=== PATIENT | female | born 1980 | race Caucasian/White ===

== ENCOUNTER 2020-01-28 13:16 | Outpatient (CLI) | payer SELFPAY ==
--- NOTE | 2020-01-28 13:23 | USCV_ITS ---
Kiera Patricia Age: 39 Gender: F : 1980 Exam Date: 01/28/2020 13:42 Ordering Phys: Angie Velarde APN- JOHN FISHER LAMPARA NET Technologist: Wilda Conway [place]am Location[place] [facility] [place]ication: LEG PAIN HISTORY: Lower extremity pain. PROCEDURES: Venous duplex imaging was performed in only the left lower extremity. The following venous structures were evaluated: common femoral vein, profunda vein, proximal portion of the greater saphenous vein, superficial femoral vein, and the popliteal vein. In addition, the posterior tibial and peroneal trunk were evaluated. Serial compression, augmentation maneuvers, and spectral Doppler flow evaluation were performed. FINDINGS: Normal 2-D Doppler and augmentation and compressibility throughout the lower extremity venous structures. Additional imaging through the proximal calf veins also reveals no thrombus. Limited evaluation of the greater saphenous vein is patent with no thrombus. CONCLUSIONS No DVT left lower extremity. Dr. Sujata Dominguez DO (Electronically Signed) Final Date: 28 January 2020 15:39 S
== END 2020-01-28 13:17 | disposition home or self-care (01) ==
LOC: RAD 13:21
PROVIDERS: PCP Nurse Practitioner Family; Visit Provider Nurse Practitioner Family
DX: M79.605 Pain in left leg (principal)
CPT/HCPCS: 93971

== ENCOUNTER 2020-02-14 12:13 | Emergency (ER) | payer SELFPAY ==
[2020-02-14 12:49] VITALS: BP 115/80; PULSE 75; RESP 16; TEMP 36.7; O2SAT 97; BMI 42.3
[2020-02-14 14:20] VITALS: PULSE 97
[2020-02-14 14:31] VITALS: BP 126/107; PULSE 67; RESP 18; O2SAT 97
--- NOTE | 2020-02-14 14:49 | USCV_ITS ---
Patricia Qureshi Age: 39 Gender: F : 1980 Exam Date: 02/14/2020 14:37 Ordering Phys: Toma Kelley Technologist: Genaro Singh Exam Location: [facility] – [place] Indication: LEG PAIN Aortic Velocity @ SMA (cm/s) FINDINGS Normal 2-D Doppler and augmentation and compressibility throughout the lower extremity venous structures. Additional imaging through the proximal calf veins also reveals no thrombus. Limited evaluation of the greater saphenous vein is patent with no thrombus.. CONCLUSIONS No evidence of left lower extremity DVT. Naresh Hurd MD Edited by: CV Internet Marketing Manager (Electronically Signed) Final Date: 14 February 2020 18:31 Amended: 16 February 2020 13:47 C
[2020-02-14 15:04] VITALS: TEMP 36.6
[2020-02-14 15:06] LABS: Basophils # 0.1 10^3/uL (0.0-0.1); Eosinophils # 0.4 10^3/uL (0.0-0.8); Eosinophils % 4.1 %; Hematocrit 45.4 % (37.0-47.0); Hemoglobin 14.7 g/dL (11.5-15.3); Lymphocytes # 3.1 10^3/uL (0.8-4.8); Lymphocytes % 31.1 %; Mean Corpuscular HGB Conc 32.4 g/dL (30.0-36.0); Mean Corpuscular Hemoglobin 30.2 pg (28.0-34.0); Mean Corpuscular Volume 93.2 fL (81-99); Mean Platelet Volume 10.9 fL (7.4-10.4); Monocytes # 0.7 10^3/uL (0.2-0.9); Monocytes % 7.3 %; Neutrophils # 5.68 10^3/uL (1.8-7.7); Neutrophils % 56.3 %; Nucleated Red Blood Cells % 0 %; Platelet Count 314 10^3/cmm (130-400); Red Blood Count 4.87 10^6/uL (4.1-5.3); Red Cell Distribution Width 12.7 % (12.1-15.1); White Blood Count 10.1 10^3/uL (4.0-10.0)
--- NOTE | 2020-02-14 15:08 | ED_ITS ---
HPI - Extremity Problem General: Chief complaint: Extremity Problem,Nontraumatic Stated complaint: L LEG PAIN/PREVIOUS BLOOD CLOT/RED & INFLAMED Time Seen by Provider: 02/14/20 14:23 History of Present Illness: HPI Narrative: 39-year-old female patient presents to the emergency department with left lower leg problem. She reports 6-month history of left lower leg discoloration with open wounds. States recently evaluated by her primary care physician with prescription of cephalexin on 2 occasions, has failed to improve, was told to come to the emergency department for evaluation for possible DVT. She reports DVT history approximately 5 years ago. She is unable to afford her Xarelto. She has experienced only 1 previous DVT. She reports wounds to the left lower extremity have been present x6 months, they are not changed. She reports erythema has not changed. She states increased pain, shooting pain to the area has increased. Associated symptoms: Deny chest pain, fever(s) or rash Review of Systems General: Reports: 10 or more systems reviewed and unremarkable except in HPI and below Const: Reports: chills; Denies: fever(s) or diaphoresis Eyes: Denies: blurry vision or eye redness ENMT: Denies: throat pain, dental pain or disequilibrium Card: Denies: chest pain, palpitations or irregular heart rhythm Resp: Denies: dyspnea, productive cough, non-productive cough or wheezing GI: Denies: abdominal pain, nausea or vomiting : Denies: difficulty voiding or dysuria Musc: Reports: extremity pain (LLE) and extremity swelling (LLE); Denies: back pain Skin/Breast: Reports: erythema, skin tenderness, non-healing lesions and changes in skin color; Denies: rash or pruritus Neuro: Denies: headache(s), weakness in extremities or behavioral changes Conrado/Lymph: Denies: easy bruising Physical Exam Const: COMMON NORMALS: no acute distress, patient oriented x3, healthy appearing and alert GENERAL APPEARANCE: cooperative, comfortable and well hydrated HENMT: COMMON NORMALS: normocephalic, Normal external nose present and moist oral mucous membranes HEAD & SCALP: normocephalic NOSE: Normal external nose present Eye: COMMON NORMALS: Equal, round and reactive pupils present and EOMs intact bilaterally GENERAL EYE: appearance normal, both eyes and all related structures PUPIL: Yes Equal, round and reactive pupils present Neck/C-Spine: COMMON NORMALS: full ROM, no lymphadenopathy and Thyroid normal GENERAL: Yes normal visual inspection and Yes trachea midline THYROID: Thyroid normal CERVICAL SPINE: Yes cervical ROM normal Lymph: LYMPHATIC: no lymphadenopathy noted Chest: COMMONS NORMALS: normal inspection of the chest and normal palpation of entire chest wall Resp: COMMON NORMALS: normal respiratory effort and clear to auscultation bilaterally EFFORT & INSPECTION: Yes able to speak in complete sentences AUSCULTATION: clear to auscultation bilaterally Cardio: COMMON NORMALS: regular rhythm, S1 normal heart sound present, S2 no rmal heart sound present and Peripheral pulses 2+ throughout RHYTHM: regular rhythm HEART SOUNDS: S1 normal heart sound present and S2 normal heart sound present PERIPHERAL PULSES: Peripheral pulses 2+ throughout GI: COMMON NORMALS: Normal to inspection, nondistended, normoactive bowel sounds present, Soft to palpation and non-tender INSPECTION: Yes normal to inspection PALPATION: Yes Soft to palpation : COMMON NORMALS: Yes no CVA tenderness BLADDER/KIDNEY EXAM: Yes no CVA tenderness Back/Pelvis: COMMON NORMALS: no CVA tenderness and thoracic and lumbar spine normal to inspection Extremity: COMMON NORMALS: capillary refill normal GENERAL: Yes normal exam except as noted LEFT LOWER EXTREMITY: Yes lower leg (with dark erythema discoloration, scaling, located medially, distal one third surrounding to open wounds with scab formation, each wound approximately 2 cm, no drainage) Left lower leg: Yes palpation (Slight discomfort) and Yes neurovascular exam (Distally intact) EXTREMITY IMAGE (FRONT): 1. Darkened erythema with scaling, 2 annular wounds consistent with chronic stasis ulcers, no drainage, non-tender upon palpation Neuro: COMMON NORMALS: patient oriented x3 and no focal motor deficits SENSORIUM/ORIENTATION: Yes alert Psych: COMMON NORMALS: mental status grossly normal, Normal thought process present and cooperative ACTIVITY/MOTOR BEHAVIOR: Yes appropriate eye contact THOUGHT PROCESS: Normal thought process present Skin: COMMON NORMALS: no rashes or lesions noted and turgor normal GENERAL SKIN EXAM: no rashes or lesions noted and turgor normal Course ED course: 39-year-old female patient with left lower extremity discoloration with wounds that have been present for 6 months and has not changed, she was sent to the emergency department by her primary care physician with concern for DVT. Continues with cephalexin as antibiotic therapy. Doxycycline was added to her regimen today to cover MRSA. Wound cultures were obtained from the area with referral to dermatology. player services representative contacted to assist with dermatology consult. Wound appears as chronic stasis ulcer, left lower ex tremity ultrasound did not appreciate DVT or abscess. She reports not able to afford Xarelto. Remains on aspirin 325 mg daily, again, DVT not appreciated upon exam. Vital Signs: Vital signs: Vital Signs Temperature 97.8 F 02/14/20 15:04 Pulse Rate 69 02/14/20 15:54 Respiratory Rate 14 02/14/20 15:54 Blood Pressure 129/92 02/14/20 15:54 Pulse Oximetry 97 02/14/20 15:54 MDM - Extremity (Nontraumatic) Lab Data: Labs: Lab Results 02/14/20 02/14/20 Range/Units 14:35 14:35 WBC 10.1 H (4.0-10.0) 10^3/ uL RBC 4.87 (4.1-5.3) 10^6/u L Hgb 14.7 (11.5-15.3) g/dL Hct 45.4 (37.0-47.0) % MCV 93.2 (81-99) fL MCH 30.2 (28.0-34.0) pg MCHC 32.4 (30.0-36.0) g/dL RDW 12.7 (12.1-15.1) % Plt Count 314 (130-400) 10^3/c mm MPV 10.9 H (7.4-10.4) fL Neut % (Auto) 56.3 % Lymph % (Auto) 31.1 % [place] % (Auto) 7.3 % Eos % (Auto) 4.1 % Baso % (Auto) 1.0 % Neut # (Auto) 5.68 (1.8-7.7) 10^3/u L Lymph # (Auto) 3.1 (0.8-4.8) 10^3/u L [place] # (Auto) 0.7 (0.2-0.9) 10^3/u L Eos # (Auto) 0.4 (0.0-0.8) 10^3/u L Baso # (Auto) 0.1 (0.0-0.1) 10^3/u L Nucleated RBC % (a uto) 0 % Nucleated RBCs # 0.0 /100WBC Sodium 139 (136-145) mmol/L Potassium 4.2 (3.5-5.1) mmol/L Chloride 104 (98-107) mmol/L Carbon Dioxide 26 (22-29) mmol/L Anion Gap 13.2 (5-19) BUN 11 (6-20) mg/dL Creatinine 0.7 (0.5-0.9) mg/dL GFR Calculation 93.2 (90-130) mL/min Glucose 92 (65-115) mg/dL Calculated Osmolal ity 287 (285-295) mOsm/k g Calcium 8.9 (8.5-10.5) mg/dL Total Bilirubin 0.2 (0.15-1.2) mg/dL AST 20 (0-32) U/L ALT 22 (0-33) U/L Alkaline Phosphata se 79 (35-105) IU/L Total Protein 7.2 (6.6-8.7) g/dL Albumin 4.1 (3.5-5.2) g/dL Globulin 3.1 (1.3-4.6) g/dL Discharge Plan Discharge Patient Disposition: Home Clinical Impression: Cellulitis of left lower extremity, Chronic stasis dermatitis of left lower extremity Condition: Stable Prescriptions: New doxycycline hyclate 100 mg capsule 100 mg PO BID 7 Days Qty: 14 RF: 0 Continued aspirin 325 mg Tablet 325 mg PO DAILY RF: 0 ibuprofen 800 mg tablet 800 mg PO TID PRN (Reason: Pain) RF: 0 rizatriptan 10 mg tablet 10 mg PO PRN RF: 0 tramadol 50 mg tablet 50 mg PO Q4H PRN (Reason: Pain) RF: 0 cephalexin 500 mg capsule 1,000 mg PO BID RF: 0 Discharge Orders: Discharge Order (Routine); Ordered 02/14/20 Ordered By: Toma Kelley Referrals: Angie Velarde APN [Primary Care Provider] - Discharge Diet: Usual diet Discharge Activity: Resume usual activity Patient Instructions: Cellulitis (ED), Stasis Dermatitis (ED) Activity Restrictions/Additional Instructions: Wound culture is currently pending, you will be contacted with results if antibiotics are not effective with growth of bacteria Referral to dermatology was completed in the emergency department, you will be contacted with appointment time and day of follow-up with dermatology Cleanse the wound with antibacterial soap daily, cover as needed if draining, continue cephalexin, doxycycline was added to cover MRSA Return to the emergency department if you develop red streaking of the lower extremity, high fever, or worsening concerning symptoms. Discharge Date/Time: 02/14/20 15:55 Coding Level of Care Code ED Inspector Poising for Marjorie Lopez Exam Comprehensive
[2020-02-14 15:21] LABS: Alanine Aminotransferase 22 U/L (0-33); Albumin Level 4.1 g/dL (3.5-5.2); Alkaline Phosphatase 79 IU/L (35-105); Anion Gap 13.2 (5-19); Aspartate Amino Transferase 20 U/L (0-32); Blood Urea Nitrogen 11 mg/dL (6-20); Calcium 8.9 mg/dL (8.5-10.5); Carbon Dioxide 26 mmol/L (22-29); Chloride 104 mmol/L (98-107); Globulin 3.1 g/dL (1.3-4.6); Glomerular Filtration Rate 93.2 mL/min (90-130); Glucose 92 mg/dL (65-115); Osmolality Calculated 287 mOsm/kg (285-295); Potassium 4.2 mmol/L (3.5-5.1); Sodium 139 mmol/L (136-145); Total Bilirubin 0.2 mg/dL (0.15-1.2); Total Protein 7.2 g/dL (6.6-8.7)
[2020-02-14 15:54] VITALS: BP 129/92; PULSE 69; RESP 14; O2SAT 97
--- NOTE | 2020-02-15 09:33 | DCPLANNER ---
training development manager had message to schedule a follow up appointment for patient with dermatology. training development manager called the dermatology clinic, spoke with Didi, gave clinic patients information. training development manager was told that patients information would be printed and reviewed. training development manager was told that the physician is not in the clinic this week, will return the week of February 20. Clinic will call patient with appointment information.
--- NOTE | 2020-02-23 09:08 | DCPLANNER ---
senior finance manager called the office of Dr. Mcgovern, spoke with Scar, a follow up appointment is scheduled for Saturday, March 21, 2020 at 3:[address] Mcgovern. senior finance manager called [phone], unable to speak with patient at this time, a voicemail was left for patient to return casework manager phone call. senior finance manager mailed patient a letter with the appointment information.
--- NOTE | 2020-04-25 12:50 | DCPLANNER ---
Patient had a follow up appointment scheduled for 03.21.20 with dermatolgy - patient did attend appointment.
== END 2020-02-14 15:55 | disposition home or self-care (01) ==
PROVIDERS: Family Medicine; Emergency Provider Nurse Practitioner Family; PCP Nurse Practitioner Family
DX: L03.116 Cellulitis of left lower limb (principal); I87.2 Venous insufficiency (chronic) (peripheral); Z79.82 Long term (current) use of aspirin
CPT/HCPCS: 12345; 80053; 85025; 93971; 99282; 99283

== ENCOUNTER → 2020-02-16 10:21 | Outpatient (BNVA) | payer OTHER, SELFPAY | PROVIDERS: PCP Nurse Practitioner Family; Visit Provider Nurse Practitioner Family | DX: Z20.828 Contact with and (suspected) exposure to other viral communicable diseases (principal) | CPT/HCPCS: 87635 ==

== ENCOUNTER → 2020-03-21 14:15 | Outpatient (BNVA) | payer SELFPAY | PROVIDERS: PCP Nurse Practitioner Family; Visit Provider Dermatology | DX: R21 Rash and other nonspecific skin eruption (principal) | CPT/HCPCS: 88304 ==

== ENCOUNTER 2020-07-04 11:51 | Outpatient (CLI) | payer SELFPAY ==
--- NOTE | 2020-07-04 12:00 | USCV_ITS ---
Patricia Qureshi Age: 39 Gender: F : 1980 Exam Date: 07/04/2020 12:21 Ordering Phys: Angie Velarde APN- JOHN SENIOR EXECUTIVE ASSISTANT Technologist: Genaro Singh Exam Location: [facility] – [place] Indication: LEFT LEG PAIN PROCEDURES: Venous duplex imaging was performed in only the left lower extremity. The following venous structures were evaluated: common femoral vein, profunda vein, proximal portion of the greater saphenous vein, superficial femoral vein, and the popliteal vein. In addition, the posterior tibial and peroneal trunk were evaluated. Serial compression, augmentation maneuvers, and spectral Doppler flow evaluation were performed. FINDINGS: There is DVT noted in the left popliteal and peroneal veins. All other veins evaluated appear free of thrombus at this time. CONCLUSIONS DVT left popliteal and peroneal veins Angie velarde was contacted with prelim at time of the exam and she directed patient to the ER. Naresh Hurd MD (Electronically Signed) Final Date: 04 July 2020 15:12 S
== END 2020-07-04 11:52 | disposition home or self-care (01) ==
LOC: RAD 11:52
PROVIDERS: PCP Nurse Practitioner Family; Visit Provider Nurse Practitioner Family
DX: M79.605 Pain in left leg (principal); I82.432 Acute embolism and thrombosis of left popliteal vein; I82.452 Acute embolism and thrombosis of left peroneal vein
CPT/HCPCS: 93971

== ENCOUNTER 2020-07-04 12:44 | Emergency (ER) | payer SELFPAY ==
[2020-07-04 13:09] VITALS: BP 143/93; PULSE 97; RESP 16; TEMP 36.7; O2SAT 96; BMI 42.3
[2020-07-04 13:41] VITALS: BP 167/80; PULSE 94; RESP 17; O2SAT 97
--- NOTE | 2020-07-04 14:32 | W.ED.EXTPRO ---
HPI - Extremity Problem General: Chief complaint: Extremity Problem,Nontraumatic Stated complaint: BLOOD CLOT L LEG Time Seen by Provider: 07/04/20 13:23 History of Present Illness: HPI Narrative: 39-year-old female comes in today reporting she had a venous duplex done earlier today Delray imaging associated blood clot and directed here. 5 6 years ago she had an unprovoked DVT with pulmonary emboli was started on Coumadin then changed to Xarelto but she stopped taking it about a year ago due to cost. She does continue to smoke. She denies any increased cough chest pain or shortness of breath recently. MD Complaint: extremity pain and extremity swelling Onset (ago): day(s) Pain Consistency: constant Location: left Quality: aching Radiation: proximal Relieving factors: nothing Exacerbating factors: nothing Associated symptoms: Deny arthralgias, chest pain, fever(s), myalgias, rash or short of breath Review of Systems Const: Denies: fever(s) ENMT: Denies: throat pain, ear or mastoid pain, nasal discharge or nasal congestion Card: Denies: chest pain Resp: Denies: dyspnea, productive cough or non-productive cough GI: Denies: abdominal pain, nausea, vomiting, hematemesis, coffee ground emesis, diarrhea, constipation, bloating, hematochezia or melena : Denies: flank pain, difficulty voiding, dysuria, urinary frequency or urinary urgency Skin/Breast: Denies: rash PFSH ED PFSH: Medical History Bipolar 1 disorder Depression Family History Other CAD (coronary artery disease) Cancer Diabetes Social History Smoking and tobacco status: current every day smoker Alcohol intake: never History of recent travel: No Female Reproductive History: Date of last menstrual period: 05/28/20 Physical Exam Const: COMMON NORMALS: no acute distress GENERAL APPEARANCE: cooperative and comfortable ORIENTATION/CONSCIOUSNESS: Yes awake, Yes oriented to person, Yes oriented to place and Yes oriented to time HENMT: COMMON NORMALS: normocephalic, atraumatic and hearing grossly normal bilaterally HEAD & SCALP: normocephalic and atraumatic Neck/C-Spine: COMMON NORMALS: no JVD Resp: COMMON NORMALS: normal respiratory effort, No retractions, No use of accessory muscles and clear to auscultation bilaterally AUSCULTATION: clear to auscultation bilaterally Cardio: COMMON NORMALS: no JVD, regular rate, regular rhythm and No murmurs present (Cardio) RATE: regular rate RHYTHM: regular rhythm GI: COMMON NORMALS: Soft to palpation and No hepatosplenomegaly present AUSCULTATION: Yes normoactive bowel sounds PALPATION: Yes Soft to palpation, No Tenderness to palpation present (GI), No Guarding due to palpation present (GI) and Yes No hepatosplenomegaly present Extremity: COMMON NORMALS: normal to inspection, capillary refill normal, no clubbing, cyanosis or edema, no calf tenderness and no pedal edema Neuro: SENSORIUM/ORIENTATION: Yes oriented to person, Yes oriented to place and Yes oriented to time Skin: COMMON NORMALS: no rashes or lesions noted GENERAL SKIN EXAM: no rashes or lesions noted Course Vital Signs: Vital signs: Vital Signs Temperature 98.0 F 07/04/20 13:09 Pulse Rate 94 07/04/20 15:42 Respiratory Rate 18 07/04/20 15:42 Blood Pressure 104/69 07/04/20 15:42 Pulse Oximetry 96 07/04/20 15:42 MDM - Extremity (Nontraumatic) MDM Narrative: Medical decision making narrative: Venous duplex will give Lovenox and start Eliquis. Have her follow-up with her primary care doctor anticipate continue close for at very minimum 6 to 9 months likely longer. Lab Data: Labs: Lab Results 07/04/20 07/04/20 07/04/20 Range/Units 14:53 14:53 14:53 WBC 13.4 H (4.0-10.0) 10^3/ uL RBC 4.85 (4.1-5.3) 10^6/u L Hgb 14.6 (11.5-15.3) g/dL Hct 45.4 (37.0-47.0) % MCV 93.6 (81-99) fL MCH 30.1 (28.0-34.0) pg MCHC 32.2 (30.0-36.0) g/dL RDW 13.1 (12.1-15.1) % Plt Count 249 (130-400) 10^3/c mm MPV 9.6 (7.4-10.4) fL Neut % (Auto) 67.2 % Lymph % (Auto) 21.6 % [place] % (Auto) 6.2 % Eos % (Auto) 4.1 % Baso % (Auto) 0.6 % Neut # (Auto) 9.00 H (1.8-7.7) 10^3/u L Lymph # (Auto) 2.9 (0.8-4.8) 10^3/u L [place] # (Auto) 0.8 (0.2-0.9) 10^3/u L Eos # (Auto) 0.6 (0.0-0.8) 10^3/u L Baso # (Auto) 0.1 (0.0-0.1) 10^3/u L Nucleated RBC % (a uto) 0 % Nucleated RBCs # 0.0 /100WBC PT 14.90 (12.1-14.9) SECO NDS INR 1.13 (0.8-1.2) APTT 30.4 (23.9-36.7) SECO NDS Sodium 140 (136-145) mmol/L Potassium 3.9 (3.5-5.1) mmol/L Chloride 104 (98-107) mmol/L Carbon Dioxide 28 (22-29) mmol/L Anion Gap 11.9 (5-19) BUN 9 (6-20) mg/dL Creatinine 0.7 (0.5-0.9) mg/dL GFR Calculation 93.2 (90-130) mL/min Glucose 81 (65-115) mg/dL Calculated Osmolal ity 288 (285-295) mOsm/k g Calcium 9.0 (8.5-10.5) mg/dL Total Bilirubin 0.7 (0.15-1.2) mg/dL AST 14 (0-32) U/L ALT 22 (0-33) U/L Alkaline Phosphata se 78 (35-105) IU/L Total Protein 7.4 (6.6-8.7) g/dL Albumin 3.8 (3.5-5.2) g/dL Globulin 3.6 (1.3-4.6) g/dL Discharge Plan Discharge Patient Disposition: Home Clinical Impression: Deep vein thrombosis of lower extremity Condition: Stable Prescriptions: New Eliquis DVT-PE Treat 30D Start 5 mg (74 tabs) tablets,dose pack See Rx Instructions .ROUTE .COMPLEX Qty: 74 RF: 0 No Action mupirocin 2 % ointment 1 applic topical BID Qty: 22 RF: 1 triamcinolone acetonide 0.1 % ointment 1 applic topical BID Qty: 80 RF: 1 clobetasol 0.05 % ointment 1 applic topical BID 14 Days Qty: 60 RF: 2 aspirin 325 mg Tablet 325 mg PO DAILY RF: 0 ibuprofen 800 mg tablet 800 mg PO TID PRN (Reason: Pain) RF: 0 tramadol 50 mg tablet 50 mg PO Q4H PRN (Reason: Pain) RF: 0 ProAir HFA 90 mcg/actuation Hfa Aerosol Inhaler 2 puff INHALATION Q4H PRN (Reason: Shortness Of Breath) RF: 0 Discharge Orders: Discharge ED (Routine); Ordered 07/04/20 Ordered By: Brandon Hay Referrals: Angie Velarde APN [Primary Care Provider] - Discharge Diet: Usual diet Discharge Activity: Resume usual activity Patient Instructions: Opioid Safety Coding Level of Care Code ED Geriatric Psychiatrist for Marjorie Lopez
[2020-07-04] MEDS: enoxaparin 120 mg/0.8 mL Syringe SUBCUT (14:35)
[2020-07-04 14:52] VITALS: BP 134/66; PULSE 91; RESP 29; O2SAT 98
[2020-07-04 15:18] LABS: Basophils # 0.1 10^3/uL (0.0-0.1); Basophils % 0.6 %; Eosinophils # 0.6 10^3/uL (0.0-0.8); Eosinophils % 4.1 %; Hematocrit 45.4 % (37.0-47.0); Hemoglobin 14.6 g/dL (11.5-15.3); Lymphocytes # 2.9 10^3/uL (0.8-4.8); Lymphocytes % 21.6 %; Mean Corpuscular HGB Conc 32.2 g/dL (30.0-36.0); Mean Corpuscular Hemoglobin 30.1 pg (28.0-34.0); Mean Corpuscular Volume 93.6 fL (81-99); Mean Platelet Volume 9.6 fL (7.4-10.4); Monocytes # 0.8 10^3/uL (0.2-0.9); Monocytes % 6.2 %; Neutrophils % 67.2 %; Nucleated Red Blood Cells % 0 %; Platelet Count 249 10^3/cmm (130-400); Red Blood Count 4.85 10^6/uL (4.1-5.3); Red Cell Distribution Width 13.1 % (12.1-15.1); White Blood Count 13.4 10^3/uL (4.0-10.0)
[2020-07-04 15:26] LABS: INR 1.13 (0.8-1.2)
[2020-07-04 15:27] LABS: Partial Thromboplastin Time 30.4 SECONDS (23.9-36.7)
[2020-07-04 15:31] LABS: Alanine Aminotransferase 22 U/L (0-33); Albumin Level 3.8 g/dL (3.5-5.2); Alkaline Phosphatase 78 IU/L (35-105); Anion Gap 11.9 (5-19); Aspartate Amino Transferase 14 U/L (0-32); Blood Urea Nitrogen 9 mg/dL (6-20); Carbon Dioxide 28 mmol/L (22-29); Chloride 104 mmol/L (98-107); Globulin 3.6 g/dL (1.3-4.6); Glomerular Filtration Rate 93.2 mL/min (90-130); Glucose 81 mg/dL (65-115); Osmolality Calculated 288 mOsm/kg (285-295); Potassium 3.9 mmol/L (3.5-5.1); Sodium 140 mmol/L (136-145); Total Bilirubin 0.7 mg/dL (0.15-1.2); Total Protein 7.4 g/dL (6.6-8.7)
[2020-07-04 15:34] VITALS: BP 134/66; PULSE 90; RESP 97; O2SAT 96
[2020-07-04 15:42] VITALS: BP 104/69; PULSE 94; RESP 18; O2SAT 96
== END 2020-07-04 15:46 | disposition home or self-care (01) ==
PROVIDERS: Emergency Provider Family Medicine; PCP Nurse Practitioner Family
DX: I82.402 Acute embolism and thrombosis of unspecified deep veins of left lower extremity (principal); Z79.82 Long term (current) use of aspirin; F17.210 Nicotine dependence, cigarettes, uncomplicated
CPT/HCPCS: 80053; 85025; 85610; 85730; 96372; 99283; J1650

== ENCOUNTER 2021-02-03 17:51 | Emergency (ER) | payer SELFPAY ==
[2021-02-03 18:00] VITALS: BP 169/100; PULSE 81; RESP 18; TEMP 36.9; O2SAT 97; BMI 42.3
[2021-02-03 21:12] VITALS: BP 137/87; PULSE 76; RESP 18; O2SAT 99
[2021-02-03] MEDS: clindamycin 150 mg Capsule 300 MG PO (21:45)
[2021-02-03] MEDS: oxyCODONE-APAP 5-325 mg Tablet 2 TAB PO (21:46)
[2021-02-03 22:44] VITALS: BP 128/67; PULSE 84; RESP 18; O2SAT 95
[2021-02-03 22:57] VITALS: BP 128/87; PULSE 76; RESP 15; O2SAT 97
--- NOTE | 2021-02-04 00:26 | W.ED.WOUNDLC ---
HPI - Wound/Laceration General: Chief Complaint: Wound/Laceration Stated Complaint: Dental Pain/L Leg pain Time Seen by Provider: 02/03/21 20:56 History of Present Illness: HPI narrative: 40-year-old female has had a chronic right-sided lower extremity ulcer for quite some time. She has seen her primary care as well as a data collection interviewer for it. She notes that she was given a cream for it from the data collection interviewer. She reports increasing pain over the past week or so. The ulcers been present for more than a year. She also notes pain to an upper left tooth with some swelling for the past several days. She denies any fever. No vomiting. Extremity Location: Right: lower leg Associated symptoms: Reports pain; Denies chills, fever(s), nausea, numbness or vomiting Review of Systems Const: Denies: fever(s) or chills Card: Denies: chest pain Resp: Denies: dyspnea GI: Denies: nausea or vomiting [facility] ED PFSH: Medical History Bipolar 1 disorder Depression Family History Other CAD (coronary artery disease) Cancer Diabetes Social History Smoking and tobacco status: current every day smoker Alcohol intake: never History of recent travel: No Female Reproductive History: Date of last menstrual period: 05/28/20 Physical Exam Const: COMMON NORMALS: no acute distress, patient oriented x3 and alert HENMT: TEETH & GINGIVA IMAGES: 1. Erythema, swelling, poor dentition with decay Chest: COMMONS NORMALS: normal inspection of the chest Resp: COMMON NORMALS: normal respiratory effort and No use of accessory muscles Cardio: COMMON NORMALS: regular rate and regular rhythm RATE: regular rate RHYTHM: regular rhythm Neuro: COMMON NORMALS: patient oriented x3 SENSORIUM/ORIENTATION: Yes alert Skin: NARRATIVE SKIN EXAM: 6 cm chronic skin ulceration to the medial right distal leg no drainage there is chronic purpura surrounding. No streaking redness. No significant warmth. Course Vital Signs: Vital signs: Vital Signs Temperature 98.4 F 02/03/21 18:00 Pulse Rate 76 02/03/21 22:57 Respiratory Rate 15 02/03/21 22:57 Blood Pressure 128/87 02/03/21 22:57 Pulse Oximetry 97 02/03/21 22:57 MDM - Wound/Laceration MDM Narrative: Medical decision making narrative: Will cover both to this, and leg ulceration with clindamycin. She is given a small prescription for pain medication as she notes ibuprofen and tramadol do not help . Case management has been consulted for wound care appointment, which would be appropriate for this patient given the chronicity of her ulceration to the leg. She has an appointment in the near future with a dentist, and was encouraged to keep it. 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 Condition: Stable Prescriptions: New clindamycin HCl 300 mg capsule 300 mg PO Q6H 10 Days Qty: 40 RF: 0 hydrocodone-acetaminophen 5-325 mg tablet 1 tab PO Q8H PRN (Reason: pain) Qty: 9 RF: 0 No Action mupirocin 2 % ointment 1 applic topical BID Qty: 22 RF: 1 triamcinolone acetonide 0.1 % ointment 1 applic topical BID Qty: 80 RF: 1 clobetasol 0.05 % ointment 1 applic topical BID 14 Days Qty: 60 RF: 2 aspirin 325 mg Tablet 325 mg PO DAILY RF: 0 ibuprofen 800 mg tablet 800 mg PO TID PRN (Reason: Pain) RF: 0 tramadol 50 mg tablet 50 mg PO Q4H PRN (Reason: Pain) RF: 0 ProAir HFA 90 mcg/actuation Hfa Aerosol Inhaler 2 puff INHALATION Q4H PRN (Reason: Shortness Of Breath) RF: 0 Eliquis DVT-PE Treat 30D Start 5 mg (74 tabs) tablets,dose pack See Rx Instructions .ROUTE .COMPLEX Qty: 74 RF: 0 Discharge Orders: Discharge ED (Routine); Ordered 02/03/21 Ordered By: Joe Roberts Referrals: Angie Velarde APN [Primary Care Provider] - 1-3 days Patient Instructions: Dental Abscess (ED), Stasis Ulcer Activity Restrictions/Additional Instructions: Antibiotics as directed. You have a case management referral in for an appointment with wound care, which is needed for your stasis ulcer. You should hear from them by Friday or so with an appointment. Return for fever greater than 100, worsening pain despite treatment, vomiting liquids or medications, other concerning symptoms. Coding Level of Care Code ED Kennel Worker for Marjorie Lopez
--- NOTE | 2021-02-06 11:43 | DCPLANNER ---
Addendum entered by Hilary Pierre 05/31/21 17:03: Patient had a follow up appointment scheduled with Wound Care - patient did attend appointment. Original Note: assistant portfolio manager had message to schedule a follow up appointment for patient with Wound Care. assistant portfolio manager called the Wound Care clinic, spoke with Jossy, gave clinic patients information. A follow up appointment was scheduled for , February 08, 2021 at 8:[address] Livingston. assistant portfolio manager called patient and gave patient the appointment information.
== END 2021-02-03 22:58 | disposition home or self-care (01) ==
PROVIDERS: Emergency Provider Emergency Medicine; PCP Nurse Practitioner Family
DX: I83.012 Varicose veins of right lower extremity with ulcer of calf (principal); K04.7 Periapical abscess without sinus; Z79.82 Long term (current) use of aspirin; Z79.01 Long term (current) use of anticoagulants; F17.210 Nicotine dependence, cigarettes, uncomplicated
CPT/HCPCS: 99283

== ENCOUNTER 2021-02-08 08:09 | Outpatient (CLI) | payer SELFPAY | END 2021-02-08 08:10 | disposition home or self-care (01) | LOC: WOUND 08:10 | PROVIDERS: PCP Nurse Practitioner Family; Visit Provider Emergency Medicine | DX: I96 Gangrene, not elsewhere classified (principal); I87.2 Venous insufficiency (chronic) (peripheral); L97.822 Non-pressure chronic ulcer of other part of left lower leg with fat layer exposed; F17.200 Nicotine dependence, unspecified, uncomplicated | CPT/HCPCS: 11042; 11045; G0463 ==

== ENCOUNTER 2021-02-15 08:25 | Outpatient (CLI) | payer MEDICAID, SELFPAY | END 2021-02-15 08:26 | disposition home or self-care (01) | LOC: WOUND 08:26 | PROVIDERS: PCP Nurse Practitioner Family; Visit Provider Nurse Practitioner Family | DX: L97.822 Non-pressure chronic ulcer of other part of left lower leg with fat layer exposed (principal); F17.210 Nicotine dependence, cigarettes, uncomplicated | CPT/HCPCS: 11042; 11045 ==

== ENCOUNTER 2021-02-22 08:17 | Outpatient (CLI) | payer MEDICAID, SELFPAY | END 2021-02-22 08:18 | disposition home or self-care (01) | LOC: WOUND 08:17 | PROVIDERS: PCP Nurse Practitioner Family; Visit Provider Emergency Medicine | DX: I87.2 Venous insufficiency (chronic) (peripheral) (principal); L97.822 Non-pressure chronic ulcer of other part of left lower leg with fat layer exposed; F17.210 Nicotine dependence, cigarettes, uncomplicated | CPT/HCPCS: 11042; 11045; 87070; 87077; 87176; 87186; 87205; 99212 ==

== ENCOUNTER 2021-03-01 09:06 | Outpatient (CLI) | payer MEDICAID, SELFPAY | END 2021-03-01 09:07 | disposition home or self-care (01) | LOC: WOUND 09:07 | PROVIDERS: PCP Nurse Practitioner Family; Visit Provider Emergency Medicine | DX: I87.2 Venous insufficiency (chronic) (peripheral) (principal); L97.822 Non-pressure chronic ulcer of other part of left lower leg with fat layer exposed; F17.210 Nicotine dependence, cigarettes, uncomplicated | CPT/HCPCS: 11042 ==

== ENCOUNTER 2021-03-08 09:08 | Outpatient (CLI) | payer MEDICAID, SELFPAY | END 2021-03-08 09:09 | disposition home or self-care (01) | LOC: WOUND 09:09 | PROVIDERS: PCP Nurse Practitioner Family; Visit Provider Nurse Practitioner Family | DX: I87.2 Venous insufficiency (chronic) (peripheral) (principal); L97.822 Non-pressure chronic ulcer of other part of left lower leg with fat layer exposed; F17.210 Nicotine dependence, cigarettes, uncomplicated | CPT/HCPCS: 11042 ==

== ENCOUNTER 2021-03-09 09:22 | Outpatient (CLI) | payer MEDICAID, SELFPAY ==
--- NOTE | 2021-03-09 09:31 | USCV_ITS ---
Patricia Qureshi Age: 40 Gender: F : 1980 Exam Date: 03/09/2021 09:46 Ordering Phys: Jaylene Livingston DO Technologist: Exam Location: [facility] [place]_ Indication: HISTORY: PROCEDURES: Bilateral duplex Venous Insufficiency study of the Deep and Superficial systems was carried out according to normal protocol with the patient in supine positon for deep system and dependent position for the superficial system. FINDINGS: All deep veins demonstrated compressibility without evidence of intraluminal thrombus or increased echogenicity. Spectral analysis of Doppler signals demonstrates normal response to compression maneuvers indicating patency without obstruction. Reflux determinations were made with the patient in the dependent position, the weight being on the contralateral leg. THERE IS SIGNIFICANT REFLUX IN ALL SEGMENTS OF THE DEEP AND GREAT SAPH VEINS ON LT LEG . THE RIGHT LEG IS WITH IN NORMAL LIMITES. THIS IS NOT A GOOD PT FOR ABLATION DUE TO DEEP SYSTEM REFLUX CONCLUSIONS 1.No evidence of DVT in the above-mentioned identifiable veins on both sides. 2. No significant venous reflux in the superficial or deep veins on the right side 3. On the left side, significant reflux of greater than 1000 ms were noted in the common femoral, femoral and popliteal veins. Significant venous reflux of greater than 500 ms were noted throughout the greater saphenous vein system on the left side, including the saphenofemoral junction. These veins were found to be dilated and more than 1 cm deep from the surface. No significant reflux was noted in the small saphenous veins from the left side. Dr Bernardo Montejo MD [facility] (Electronically Signed) Final Date: 09 March 2021 22:01 S
== END 2021-03-09 09:23 | disposition home or self-care (01) ==
LOC: RAD 09:25
PROVIDERS: PCP Nurse Practitioner Family; Visit Provider Emergency Medicine
DX: L97.812 Non-pressure chronic ulcer of other part of right lower leg with fat layer exposed (principal); M79.605 Pain in left leg; M79.604 Pain in right leg
CPT/HCPCS: 93970

== ENCOUNTER 2021-03-14 08:29 | Outpatient (CLI) | payer MEDICAID, SELFPAY ==
--- NOTE | 2021-03-14 08:41 | USCV_ITS ---
Patricia Qureshi Age: 40 Gender: F : 1980 Exam Date: 03/14/2021 08:24 Ordering Phys: Jaylene Livingston DO Technologist: Vivienne Carrero [place] [facility] [place] Indication: LEFT LEG ULCER RIGHT LEFT Brachial 159.00 mmHg Brachial 136.00 mmHg Pressure (mmHg) Waveform Pressure (mmHg) Waveform 157.00 High Thigh 157.00 169.00 Below Knee 153.00 150.00 PEDIATRIC PSYCHOLOGIST 145.00 DPA 0.94 Ankle/Brachial Index 123.00 Pre-Exercise Toe Pressure 139.00 Pre-Exercise Toe/Brachial Index 0.87 0.77 FINDINGS Unable to put BP cuff on Left lower calf due to patient being in too much pain with ulcer. PRATIMA was 0.94 and TBI subtle 0.77 on the right side Left PRATIMA could not be obtained. The TBI on the left side is 0.87. CONCLUSIONS Normal resting TBIs bilaterally Normal resting PRATIMA on the right side Left PRATIMA could not be obtained because of the patient's intolerance Possibly no significant arterial obstruction bilaterally, based on the above findings Dr Bernardo Montejo MD [facility] (Electronically Signed) Final Date: 14 March 2021 22:24 S
== END 2021-03-14 08:30 | disposition home or self-care (01) ==
LOC: RAD 08:33
PROVIDERS: PCP Nurse Practitioner Family; Visit Provider Emergency Medicine
DX: L97.812 Non-pressure chronic ulcer of other part of right lower leg with fat layer exposed (principal); M79.604 Pain in right leg; M79.605 Pain in left leg
CPT/HCPCS: 93923

== ENCOUNTER 2021-03-15 08:26 | Outpatient (CLI) | payer MEDICAID, SELFPAY | END 2021-03-15 08:27 | disposition home or self-care (01) | LOC: WOUND 08:27 | PROVIDERS: PCP Nurse Practitioner Family; Visit Provider Nurse Practitioner Family | DX: I87.2 Venous insufficiency (chronic) (peripheral) (principal); L97.822 Non-pressure chronic ulcer of other part of left lower leg with fat layer exposed; F17.210 Nicotine dependence, cigarettes, uncomplicated | CPT/HCPCS: 11042; A6252 ==

== ENCOUNTER 2021-03-19 13:35 | Outpatient (CLI) | payer MEDICAID, SELFPAY | END 2021-03-19 13:36 | disposition home or self-care (01) | LOC: WOUND 13:36 | PROVIDERS: PCP Nurse Practitioner Family; Visit Provider Nurse Practitioner Family | DX: I87.2 Venous insufficiency (chronic) (peripheral) (principal); L97.812 Non-pressure chronic ulcer of other part of right lower leg with fat layer exposed | CPT/HCPCS: 29581; A6252 ==

== ENCOUNTER 2021-03-22 09:28 | Outpatient (CLI) | payer MEDICAID, SELFPAY | END 2021-03-22 09:29 | disposition home or self-care (01) | LOC: WOUND 09:29 | PROVIDERS: PCP Nurse Practitioner Family; Visit Provider Emergency Medicine | DX: I87.2 Venous insufficiency (chronic) (peripheral) (principal); L97.822 Non-pressure chronic ulcer of other part of left lower leg with fat layer exposed; F17.210 Nicotine dependence, cigarettes, uncomplicated | CPT/HCPCS: 11042; A6252 ==

== ENCOUNTER 2021-03-29 09:37 | Outpatient (CLI) | payer MEDICAID, SELFPAY | END 2021-03-29 09:38 | disposition home or self-care (01) | LOC: WOUND 09:38 | PROVIDERS: PCP Nurse Practitioner Family; Visit Provider Nurse Practitioner Family | DX: I87.2 Venous insufficiency (chronic) (peripheral) (principal); L97.822 Non-pressure chronic ulcer of other part of left lower leg with fat layer exposed; F17.210 Nicotine dependence, cigarettes, uncomplicated | CPT/HCPCS: 11042; A6252 ==

== ENCOUNTER 2021-04-03 08:42 | Outpatient (CLI) | payer MEDICAID, SELFPAY | END 2021-04-03 08:43 | disposition home or self-care (01) | LOC: WOUND 08:43 | PROVIDERS: PCP Nurse Practitioner Family; Visit Provider Nurse Practitioner Family | DX: I87.2 Venous insufficiency (chronic) (peripheral) (principal); L97.822 Non-pressure chronic ulcer of other part of left lower leg with fat layer exposed; F17.210 Nicotine dependence, cigarettes, uncomplicated | CPT/HCPCS: 11042; A6252 ==

== ENCOUNTER 2021-04-12 08:13 | Outpatient (CLI) | payer MEDICAID, SELFPAY | END 2021-04-12 08:14 | disposition home or self-care (01) | LOC: WOUND 08:14 | PROVIDERS: PCP Nurse Practitioner Family; Visit Provider Emergency Medicine | DX: I87.2 Venous insufficiency (chronic) (peripheral) (principal); L97.822 Non-pressure chronic ulcer of other part of left lower leg with fat layer exposed; F17.210 Nicotine dependence, cigarettes, uncomplicated | CPT/HCPCS: 11043; A6252 ==

== ENCOUNTER 2021-04-19 08:13 | Outpatient (CLI) | payer MEDICAID, SELFPAY | END 2021-04-19 08:14 | disposition home or self-care (01) | LOC: WOUND 08:14 | PROVIDERS: PCP Nurse Practitioner Family; Visit Provider Emergency Medicine | DX: I87.2 Venous insufficiency (chronic) (peripheral) (principal); L97.822 Non-pressure chronic ulcer of other part of left lower leg with fat layer exposed; F17.210 Nicotine dependence, cigarettes, uncomplicated | CPT/HCPCS: 11042 ==

== ENCOUNTER 2021-04-26 08:13 | Outpatient (CLI) | payer MEDICAID, SELFPAY | END 2021-04-26 08:14 | disposition home or self-care (01) | LOC: WOUND 08:13 | PROVIDERS: PCP Nurse Practitioner Family; Visit Provider Nurse Practitioner Family | DX: I87.2 Venous insufficiency (chronic) (peripheral) (principal); L97.822 Non-pressure chronic ulcer of other part of left lower leg with fat layer exposed; F17.210 Nicotine dependence, cigarettes, uncomplicated | CPT/HCPCS: 11042 ==

== ENCOUNTER 2021-05-03 07:58 | Outpatient (CLI) | payer MEDICAID, SELFPAY | END 2021-05-03 07:59 | disposition home or self-care (01) | LOC: WOUND 07:58 | PROVIDERS: PCP Nurse Practitioner Family; Visit Provider Nurse Practitioner Family | DX: I87.2 Venous insufficiency (chronic) (peripheral) (principal); L97.822 Non-pressure chronic ulcer of other part of left lower leg with fat layer exposed; F17.210 Nicotine dependence, cigarettes, uncomplicated | CPT/HCPCS: 11042 ==

== ENCOUNTER 2021-05-10 07:59 | Outpatient (CLI) | payer MEDICAID, SELFPAY | END 2021-05-10 08:00 | disposition home or self-care (01) | LOC: WOUND 08:00 | PROVIDERS: PCP Nurse Practitioner Family; Visit Provider Nurse Practitioner Family | DX: I87.2 Venous insufficiency (chronic) (peripheral) (principal); L97.822 Non-pressure chronic ulcer of other part of left lower leg with fat layer exposed; F17.210 Nicotine dependence, cigarettes, uncomplicated | CPT/HCPCS: 99212 ==

== ENCOUNTER 2021-07-17 08:27 | Emergency (ER) | payer MEDICAID, SELFPAY ==
[2021-07-17 08:37] VITALS: BP 174/69; PULSE 87; RESP 18; TEMP 36.6; O2SAT 94
--- NOTE | 2021-07-17 09:15 | USCV_ITS ---
Patricia Qureshi Age: 40 Gender: F : 1980 Exam Date: 07/17/2021 09:27 Ordering Phys: Michael Jerry Technologist: JOSE ANGEL [place] [facility] [place]ication: RLE PAIN AND SWELLING. H/O LLE DVT HISTORY: Lower extremity swelling. Lower extremity pain. History of deep venous thrombosis. PROCEDURES: Venous duplex imaging was performed in only the right lower extremity. The following venous structures were evaluated: common femoral vein, profunda vein, proximal portion of the greater saphenous vein, superficial femoral vein, and the popliteal vein. In addition, the posterior tibial and peroneal trunk were evaluated. Serial compression, augmentation maneuvers, and spectral Doppler flow evaluation were performed. FINDINGS: Examination was technically limited due to body habitus. Normal 2-D Doppler and augmentation and compressibility throughout the lower extremity venous structures. Additional imaging through the proximal calf veins also reveals no thrombus. Limited evaluation of the greater saphenous vein is patent with no thrombus.. CONCLUSIONS No DVT right lower extremity. Dr. Sujata Dominguez DO (Electronically Signed) Final Date: 17 July 2021 10:28 S
--- NOTE | 2021-07-17 09:15 | W.ED.FALL ---
HPI - Fall General: Chief Complaint: Extremity Problem,Nontraumatic Stated Complaint: Knot on R leg getting bigger Time Seen by Provider: 07/17/21 09:04 History of Present Illness: Patient is a 40-year-old female who comes to the ED with right leg swelling and pain. Symptoms started approximately 3 days ago. She denies any injury or trauma to cause right leg swelling and pain. Patient has a past medical history of a DVT in the left leg and is supposed to be on Eliquis, but due to cost she stopped taking it. Primary care physician is aware she stopped Eliquis and told her to take aspirin daily. Denies any chest pain, shortness of breath, hemoptysis. Patient does take a daily aspirin. Associated symptoms-after fall: Denies abdominal pain, chest pain, headache(s), hematuria or neck pain Review of Systems Const: Denies: fever(s), chills or fatigue Eyes: Denies: change in vision or eye discomfort ENMT: Denies: throat pain, odynophagia, nasal discharge or nasal congestion Card: Denies: chest pain, palpitations, edema, swelling of feet/ankles, dyspnea on exertion or orthopnea Resp: Denies: dyspnea, productive cough or non-productive cough GI: Denies: abdominal pain, nausea, vomiting, diarrhea, constipation or hematochezia : Denies: flank pain, dysuria or hematuria Musc: Reports: extremity pain (right leg-lower thigh) and extremity swelling (right leg-lower thigh); Denies: neck pain or back pain Skin/Breast: Denies: rash or new lesions Neuro: Denies: headache(s), numbness in extremities or weakness in extremities [facility] ED PFSH: Medical History Bipolar 1 disorder Depression Family History Other CAD (coronary artery disease) Cancer Diabetes Social History Smoking and tobacco status: current some day smoker cigarettes Packs smoked per day: 1 Years cigarettes smoked: 20 Alcohol intake: current Alcohol intake frequency: few times a week Alcohol type: beer Lives independently: Yes Household members: children Housing: House Marital status: Single Number of children: 1 Pets and animals: No History of recent travel: No Female Reproductive History: Date of last menstrual period: 05/28/20 Physical Exam Const: COMMON NORMALS: no acute distress, patient oriented x3 and alert GENERAL APPEARANCE: cooperative and comfortable HENMT: COMMON NORMALS: normocephalic HEAD & SCALP: normocephalic MOUTH: Normal oral and palatal mucosa present THROAT: posterior oropharynx normal and uvula midline Eye: COMMON NORMALS: Equal, round and reactive pupils present and conjunctivae normal CONJUNCTIVA: Yes conjunctivae normal PUPIL: Yes Equal, round and reactive pupils present Neck/C-Spine: COMMON NORMALS: supple GENERAL: Yes normal visual inspection Resp: COMMON NORMALS: normal respiratory effort, No retractions, No use of accessory muscles and clear to auscultation bilaterally AUSCULTATION: clear to auscultation bilaterally Cardio: COMMON NORMALS: regular rate, regular rhythm, S1 normal heart sound present, S2 normal heart sound present, No gallops present (Cardio), No clicks present (Cardio), No murmurs present (Cardio) and Peripheral pulses 2+ throughout RATE: regular rate RHYTHM: regular rhythm HEART SOUNDS: S1 normal heart sound present and S2 normal heart sound present PERIPHERAL PULSES: Peripheral pulses 2+ throughout GI: COMMON NORMALS: Normal to inspection, nondistended, normoactive bowel sounds present, Soft to palpation, non-tender and no masses PALPATION: Yes Soft to palpation : COMMON NORMALS: Yes no CVA tenderness BLADDER/KIDNEY EXAM: Yes no CVA tenderness Back/Pelvis: COMMON NORMALS: no CVA tenderness Extremity: COMMON NORMALS: no calf tenderness NARRATIVE EXTREMITY EXAM: Right thigh?varicose veins. Inferior aspect of anterior thigh just superior to the knee. Patient has some varicose veins along with a palpable tender nodule on thigh. Neuro: COMMON NORMALS: patient oriented x3 and moves all extremities SENSORIUM/ORIENTATION: Yes alert Skin: GENERAL SKIN EXAM: dry skin Course Vital Signs: Vital signs: Vital Signs Temperature 97.9 F 07/17/21 09:19 Pulse Rate 75 07/17/21 09:55 Respiratory Rate 18 07/17/21 09:55 Blood Pressure 168/93 07/17/21 09:55 Pulse Oximetry 96 07/17/21 09:55 MDM - Fall Medical Decision Making Patient is a 40-year-old female comes to the ED with right lower extremity pain and swelling. History of DVTs. Patient denies any injury or trauma to cause pain. Denies any chest pain, shortness of breath or hemoptysis. Vitals are stable. Patient has varicose veins of right leg. She does have a tender palpable nodule on thigh. Ultrasound venous duplex of right lower extremity showed no DVT or blood clots seen. Patient diagnosed with varicose veins and was discharged home. She was told to follow-up with PCP in 5 to 7 days for reevaluation. Return to ED precautions given. Patient understood agree with plan. Imaging Data US Vascular: Radiologist's impression: Ultrasound venous duplex of right lower extremity?no DVT or blood clots seen. Discharge Plan Discharge Patient Disposition: Home Clinical Impression: Varicose veins of right lower extremity Qualifiers: Varicose vein complication: pain Qualified Code(s): I83.811 - Varicose veins of right lower extremity with pain Condition: Stable Prescriptions: No Action mupirocin 2 % ointment 1 applic topical BID Qty: 22 1RF Rx Instructions: Apply twice daily To open areas on lower extremities until healed triamcinolone acetonide 0.1 % ointment 1 applic topical BID Qty: 80 1RF Rx Instructions: Apply twice daily to affected area on left lower leg until follow-up. Do not put on open areas. clobetasol 0.05 % ointment 1 applic topical BID 14 Days Qty: 60 2RF Rx Instructions: Use BID on left leg not more than 2 weeks/month alternating with triamcinolone Eliquis DVT-PE Treat 30D Start 5 mg (74 tabs) tablets,dose pack See Rx Instructions .ROUTE .COMPLEX 0RF Rx Instructions: not taking due to the cost hydrocodone-acetaminophen 5-325 mg tablet 1 tab PO Q8H PRN (Reason: pain) 0RF Rx Instructions: no longer taking aspirin 325 mg Tablet 325 mg PO DAILY 0RF Rx Instructions: SEE PHARMACY COMMENTS ibuprofen 800 mg tablet 800 mg PO TID PRN (Reason: Pain) 0RF tramadol 50 mg tablet 50 mg PO Q4H PRN (Reason: Pain) 0RF ProAir HFA 90 mcg/actuation Hfa Aerosol Inhaler 2 puff INHALATION Q4H PRN (Reason: Shortness Of Breath) 0RF Discharge Orders: Discharge ED (Routine); Ordered 07/17/21 Ordered By: Michael Jerry Referrals: Angie Velarde APN [Primary Care Provider] - Discharge Diet: Regular Discharge Activity: Increase activity as tolerated Patient Instructions: Varicose Veins Activity Restrictions/Additional Instructions: Follow-up with medical provider as directed in the next 5 to 7 days reevaluation. Continue taking home medications as previously prescribed. Apply cold pack on sore area of leg. Rest, elevate and compress the area with Stephon bandage to help with swelling. Return to the ER or your medical provider if condition worsens. Please read and understand discharge instructions. Thank you for choosing [facility] for your healthcare needs today. Please realize this is an emergency room and that we are providing you with a medical screening exam and this may not be complete and all inclusive of all the testing and or work up that you may need to determine your ailment or severity of your illness. It is very important that you follow up as instructed or that you return to the Emergency Department should you have concerns or if your condition changes or worsens in any way. Coding Level of Care Code ED Professional Athlete for Marjorie Lopez Exam Comprehensive
[2021-07-17 09:19] VITALS: BP 160/93; PULSE 77; RESP 18; TEMP 36.6; O2SAT 96; BMI 42.3
[2021-07-17 09:55] VITALS: BP 168/93; PULSE 75; RESP 18; O2SAT 96
== END 2021-07-17 09:56 | disposition home or self-care (01) ==
PROVIDERS: Emergency Provider Physician Assistant; PCP Nurse Practitioner Family
DX: I83.811 Varicose veins of right lower extremity with pain (principal); Z79.01 Long term (current) use of anticoagulants; Z79.82 Long term (current) use of aspirin; F17.210 Nicotine dependence, cigarettes, uncomplicated
CPT/HCPCS: 93971; 99282

== ENCOUNTER 2021-07-25 10:32 | Outpatient (CLI) | payer MEDICAID, SELFPAY ==
--- NOTE | 2021-07-25 11:22 | USCV_ITS ---
Patricia Qureshi Age: 40 Gender: F : 1980 Exam Date: 07/25/2021 11:24 Ordering Phys: Angie Velarde APN- [employer] Technologist: JAMAL Exam Location: [facility] [place] Indication: RIGHT LEG PAIN HISTORY: Lower extremity pain. PROCEDURES: Venous duplex imaging was performed in only the right lower extremity. The following venous structures were evaluated: common femoral vein, profunda vein, proximal portion of the greater saphenous vein, superficial femoral vein, and the popliteal vein. In addition, the posterior tibial and peroneal trunk were evaluated. FINDINGS: There appears to be thrombus present in an accessory vein that branches from Rt mid GSV in the area of redness. All other veins imaged appear compressible and free of thrombus. CONCLUSIONS Superficial thrombus in an accessory vein superficial varicosity, mid thigh in the area of redness No evidence of right lower extremity DVT. Unable to give prelim to ordering provider. Office closed on Wednesdays. Pt takes daily aspirin. Ok to let pt leave per Dr. Hurd. JAMAL Engineering Project Designer Naresh Hurd MD (Electronically Signed) Final Date: 25 July 2021 17:22 S
== END 2021-07-25 10:33 | disposition home or self-care (01) ==
LOC: RAD 10:32
PROVIDERS: PCP Nurse Practitioner Family; Visit Provider Nurse Practitioner Family
DX: I82.811 Embolism and thrombosis of superficial veins of right lower extremity (principal); M79.604 Pain in right leg
CPT/HCPCS: 93971

== ENCOUNTER 2021-08-09 08:32 | Outpatient (CLI) | payer MEDICAID, SELFPAY ==
--- NOTE | 2021-08-09 09:07 | USCV_ITS ---
Patricia Qureshi Age: 40 Gender: F : 1980 Exam Date: 08/09/2021 09:26 Ordering Phys: Nikunj العراقي MD (Andy) ([email or web address]) Technologist: Genaro Singh Exam Location: [facility] [place] Indication: HISTORY: PROCEDURES: FINDINGS: There does not appear to be a DVT or SVT within the left lower extremity at this time. There does appear to be relfux within the left lower extremity at the locations of the Pop, GSV P, GSV M, GSV D, GSV BK, and SSV M. All other veins examined appear free of thrombus and reflux at this time. The veins were found to be easily compressible with spontaneous blood flow. Non pulsatile flow pattern. The reflux time in the left popliteal vein was less than 1000 ms CONCLUSIONS 1. No evidence of DVT in the veins examined on the left lower extremity. 2. Significant venous reflux of greater than 500 ms were noted throughout the greater saphenous vein segments on the left side, excluding the saphenofemoral junction and distal to the saphenofemoral junction. The segments were greater than 1 cm deep from the surface. They were measuring anywhere from .62 to 0.87 cm in diameter. 3. Significant venous reflux of greater than 500 ms was also noted at the mid small saphenous vein segment on the left side. But the vein was found to be less than 1 cm deep. 4. The popliteal vein on the left side also had some reflux but was found to be less than 1000 ms. Further details of the venous dimensions, depth from the surface and reflux times, please see the attached report. Dr Bernardo Montejo MD [facility] (Electronically Signed) Final Date: 10 August 2021 10:41 S
== END 2021-08-09 08:33 | disposition home or self-care (01) ==
PROVIDERS: PCP Nurse Practitioner Family; Visit Provider Thoracic Surgery (Cardiothoracic Vascular Surgery)
DX: I83.90 Asymptomatic varicose veins of unspecified lower extremity (principal); I87.2 Venous insufficiency (chronic) (peripheral)
CPT/HCPCS: 93971

== ENCOUNTER 2021-09-01 12:51 | Emergency (ER) | payer MEDICAID, SELFPAY ==
[2021-09-01 13:00] VITALS: BP 152/107; PULSE 108; RESP 20; TEMP 36.5; O2SAT 95; BMI 43.9
--- NOTE | 2021-09-01 13:16 | W.ED.ABDPA2 ---
HPI - Abdominal Pain General: Chief Complaint: Abdominal Pain Stated Complaint: abd/back pain Time Seen by Provider: 09/01/21 13:16 Source: patient Mode of arrival: ambulatory Limitations: no limitations History of Present Illness: Patient is a 40-year-old female presents to ED today with a complaint of an episode of acute onset right lower abdominal pain that began while at work today. Patient states pain initially felt like a muscle cramp but states she did become nauseous and sweaty so decided to come to the ED for evaluation. Upon arrival patient states she is not having much discomfort. She denies urinary symptoms. She has been having normal bowel movements. She currently does not feel nauseous. She has not had any episodes of emesis. No fevers. MD elicited complaint: abdominal pain Pertinent past history: none Onset (ago): hour(s) Pain Consistency: now resolved Location: RUQ and RLQ Exacerbating factors: nothing Relieving factors: nothing Associated Symptoms: Denies chills, diarrhea, dysuria, fever(s), nausea, syncope and vomiting Related Data: Date of Last Menstrual Period: 05/28/20 Patient : No Review of Systems Const: Denies: fever(s), chills, body aches, fatigue or malaise Card: Denies: chest pain, palpitations, irregular heart rhythm, edema, swelling of feet/ankles, lightheadedness, syncope, pre-syncope or dyspnea on exertion Resp: Denies: dyspnea, productive cough, non-productive cough, wheezing, pain on inspiration, hemoptysis or chest congestion GI: Reports: abdominal pain; Denies: nausea, vomiting or diarrhea : Denies: flank pain, difficulty voiding, dysuria, urinary frequency, urinary urgency or urinary hesitancy Musc: Denies: neck pain, back pain, extremity pain or joint pain Skin/Breast: Denies: rash Neuro: Denies: headache(s), numbness in extremities, weakness in extremities or sensory changes PFSH ED PFSH: Medical History Bipolar 1 disorder Depression Family History Other CAD (coronary artery disease) Cancer Diabetes Social History Smoking and tobacco status: current some day smoker cigarettes Packs smoked per day: 1 Years cigarettes smoked: 20 Alcohol intake: current Alcohol intake frequency: few times a week Alcohol type: beer Lives independently: Yes Household members: children Housing: House Marital status: Single Number of children: 1 Pets and animals: No History of recent travel: No Female Reproductive History: Date of last menstrual period: 05/28/20 Physical Exam Const: COMMON NORMALS: no acute distress, patient oriented x3, no limitations and alert NUTRITIONAL APPEARANCE: obese ORIENTATION/CONSCIOUSNESS: Yes awake, Yes oriented to person, Yes oriented to place and Yes oriented to time HENMT: COMMON NORMALS: normocephalic and atraumatic HEAD & SCALP: normocephalic and atraumatic Chest: COMMONS NORMALS: normal inspection of the chest and normal palpation of entire chest wall Resp: COMMON NORMALS: normal respiratory effort and clear to auscultation bilaterally AUSCULTATION: clear to auscultation bilaterally Cardio: COMMON NORMALS: regular rate and regular rhythm RATE: regular rate RHYTHM: regular rhythm GI: COMMON NORMALS: Normal to inspection, nondistended, normoactive bowel sounds present, Soft to palpation, No hepatosplenomegaly present and no masses INSPECTION: Yes normal to inspection AUSCULTATION: Yes normoactive bowel sounds PALPATION: Yes Soft to palpation, Yes Tenderness to palpation present (GI) (mild R sided tenderness) and Yes No hepatosplenomegaly present : COMMON NORMALS: Yes no CVA tenderness BLADDER/KIDNEY EXAM: Yes no CVA tenderness Back/Pelvis: COMMON NORMALS: no CVA tenderness, thoracic and lumbar spine normal to inspection, no thoracic nor lumbar tenderness and thoraco-lumbar ROM normal Extremity: COMMON NORMALS: normal to inspection GENERAL: Yes normal exam except as noted Neuro: COMMON NORMALS: patient oriented x3, moves all extremities, no focal motor deficits and no sensory deficits noted SENSORIUM/ORIENTATION: Yes alert, Yes oriented to person, Yes oriented to place and Yes oriented to time Skin: COMMON NORMALS: no rashes or lesions noted GENERAL SKIN EXAM: no rashes or lesions noted Course Reevaluation(s): Reevaluation #1: She has had a return of her pain while here. Labs show a slightly elevated white count at 14.7. Chemistry is fairly unremarkable. UA does have 2+ blood. Will obtain CT renal to evaluate for stone and other intra-abdominal etiologies for her discomfort. Vital Signs: Vital signs: Vital Signs Temperature 97.7 F 09/01/21 13:00 Pulse Rate 86 09/01/21 14:32 Respiratory Rate 20 H 09/01/21 13:00 Blood Pressure 137/89 09/01/21 14:32 Pulse Oximetry 94 09/01/21 14:32 MDM - Abdominal Pain Medical Decision Making CT scan is negative. At this time recommend conservative treatment and close observation of symptoms at home. Strict return to ED precautions given. Otherwise I would like her to follow up with PCP this week if symptoms persist. Lab Data : 09/01/21 13:35 09/01/21 13:35 Labs/Radiology: Radiology Impressions Abdomen/Pelvis CT 09/01/21 14:36 IMPRESSION: No acute findings. Laboratory Results WBC 14.7 10^3/uL (4.0-10.0) H 09/01/21 13:35 RBC 5.33 10^6/uL (4.1-5.3) H 09/01/21 13:35 Hgb 16.8 g/dL (11.5-15.3) H 09/01/21 13:35 Hct 50.5 % (37.0-47.0) H 09/01/21 13:35 MCV 94.7 fl (81-99) 09/01/21 13:35 MCH 31.5 pg (28.0-34.0) 09/01/21 13:35 MCHC 33.3 g/dL (30.0-36.0) 09/01/21 13:35 RDW 13.2 % (12.1-15.1) 09/01/21 13:35 Plt Count 377 10^3/cmm (130-400) 09/01/21 13:35 MPV 9.0 fL (7.4-10.4) 09/01/21 13:35 Neut % (Auto) 75.5 % 09/01/21 13:35 Lymph % (Auto) 15.6 % 09/01/21 13:35 [place] % (Auto) 6.9 % 09/01/21 13:35 Eos % (Auto) 1.0 % 09/01/21 13:35 Baso % (Auto) 0.7 % 09/01/21 13:35 Neut # (Auto) 11.08 10^3/uL (1.8-7.7) H 09/01/21 13:35 Lymph # (Auto) 2.3 10^3/uL (0.8-4.8) 09/01/21 13:35 [place] # (Auto) 1.0 10^3/uL (0.2-0.9) H 09/01/21 13:35 Eos # (Auto) 0.1 10^3/uL (0.0-0.8) 09/01/21 13:35 Baso # (Auto) 0.1 10^3/uL (0.0-0.1) 09/01/21 13:35 Nucleated RBC % (auto) 0 % 09/01/21 13:35 Nucleated RBCs # 0.0 /100WBC 09/01/21 13:35 Sodium 130 mmol/L (136-145) L 09/01/21 13:35 Potassium 4.0 mmol/L (3.5-5.1) 09/01/21 13:35 Chloride 98 mmol/L (98-107) 09/01/21 13:35 Carbon Dioxide 22 mmol/L (22-29) 09/01/21 13:35 Anion Gap 14.0 (5-19) 09/01/21 13:35 BUN 15 mg/dL (6-20) 09/01/21 13:35 Creatinine 0.9 mg/dL (0.5-0.9) 09/01/21 13:35 GFR Calculation 69.3 mL/min (90-130) L 09/01/21 13:35 Glucose 109 mg/dL (65-115) 09/01/21 13:35 Calculated Osmolality 271 mOsm/kg (285-295) L 09/01/21 13:35 Calcium 10.1 mg/dL (8.5-10.5) 09/01/21 13:35 Total Bilirubin 0.4 mg/dL (0.15-1.2) 09/01/21 13:35 AST 26 U/L (0-32) 09/01/21 13:35 ALT 28 U/L (0-33) 09/01/21 13:35 Alkaline Phosphatase 79 IU/L (35-105) 09/01/21 13:35 Total Protein 8.1 g/dL (6.6-8.7) 09/01/21 13:35 Albumin 4.2 g/dL (3.5-5.2) 09/01/21 13:35 Globulin 3.9 g/dL (1.3-4.6) 09/01/21 13:35 HCG, Qual Negative (Negative) 09/01/21 13:35 Urine Color Dark yellow (Yellow) 09/01/21 14:08 Urine Appearance Clear (CLEAR) 09/01/21 14:08 Urine pH 5 (5-7) 09/01/21 14:08 Ur Specific [place] 1.030 (1.005-1.030) 09/01/21 14:08 Urine Protein Trace (Negative) 09/01/21 14:08 Urine Glucose (UA) Norm (Normal) 09/01/21 14:08 Urine Ketones 1+ (Negative) H 09/01/21 14:08 Urine Blood 2+ (Negative) H 09/01/21 14:08 Urine Nitrate Negative (Negative) 09/01/21 14:08 Urine Bilirubin 1+ (Negative) H 09/01/21 14:08 Urine Urobilinogen 1 mg/dL (Negative) H 09/01/21 14:08 Ur Leukocyte Esterase Negative (Negative) 09/01/21 14:08 Urine RBC 0-4 /hpf (0-2) H 09/01/21 14:08 Urine WBC 0-4 /hpf (0-5) H 09/01/21 14:08 Ur Squamous Epith Cells 5-10 /hpf (0-5) H 09/01/21 14:08 Calcium Oxalate Crystal 40-55 /hpf H 09/01/21 14:08 Amorphous Sediment Not Reportable 09/01/21 14:08 Urine Bacteria Trace /hpf (NONE) 09/01/21 14:08 Discharge Plan Discharge Patient Disposition: Home Clinical Impression: Right-sided abdominal pain of unknown cause Condition: Stable Prescriptions: No Action mupirocin 2 % ointment 1 applic topical BID Qty: 22 1RF Rx Instructions: Apply twice daily To open areas on lower extremities until healed triamcinolone acetonide 0.1 % ointment 1 applic topical BID Qty: 80 1RF Rx Instructions: Apply twice daily to affected area on left lower leg until follow-up. Do not put on open areas. clobetasol 0.05 % ointment 1 applic topical BID 14 Days Qty: 60 2RF Rx Instructions: Use BID on left leg not more than 2 weeks/month alternating with triamcinolone Eliquis DVT-PE Treat 30D Start 5 mg (74 tabs) tablets,dose pack See Rx Instructions .ROUTE .COMPLEX 0RF Rx Instructions: not taking due to the cost hydrocodone-acetaminophen 5-325 mg tablet 1 tab PO Q8H PRN (Reason: pain) 0RF Rx Instructions: no longer taking aspirin 325 mg Tablet 325 mg PO DAILY 0RF Rx Instructions: SEE PHARMACY COMMENTS ibuprofen 800 mg tablet 800 mg PO TID PRN (Reason: Pain) 0RF tramadol 50 mg tablet 50 mg PO Q4H PRN (Reason: Pain) 0RF ProAir HFA 90 mcg/actuation Hfa Aerosol Inhaler 2 puff INHALATION Q4H PRN (Reason: Shortness Of Breath) 0RF Discharge Orders: Discharge ED (Routine); Ordered 09/01/21 Ordered By: Millie Gannon Referrals: Velarde,JAYDA Adams [Primary Care Provider] - Patient Instructions: Abdominal Pain (ED) Coding Level of Care Code ED Disability Advocate for Chg Fwd Exam Comprehensive
[2021-09-01 13:51] LABS: Basophils # 0.1 10^3/uL (0.0-0.1); Basophils % 0.7 %; Eosinophils # 0.1 10^3/uL (0.0-0.8); Hematocrit 50.5 % (37.0-47.0); Hemoglobin 16.8 g/dL (11.5-15.3); Lymphocytes # 2.3 10^3/uL (0.8-4.8); Lymphocytes % 15.6 %; Mean Corpuscular HGB Conc 33.3 g/dL (30.0-36.0); Mean Corpuscular Hemoglobin 31.5 pg (28.0-34.0); Mean Corpuscular Volume 94.7 fl (81-99); Monocytes % 6.9 %; Neutrophils # 11.08 10^3/uL (1.8-7.7); Neutrophils % 75.5 %; Nucleated Red Blood Cells % 0 %; Platelet Count 377 10^3/cmm (130-400); Red Blood Count 5.33 10^6/uL (4.1-5.3); Red Cell Distribution Width 13.2 % (12.1-15.1); White Blood Count 14.7 10^3/uL (4.0-10.0)
[2021-09-01 14:11] LABS: Alanine Aminotransferase 28 U/L (0-33); Albumin Level 4.2 g/dL (3.5-5.2); Alkaline Phosphatase 79 IU/L (35-105); Aspartate Amino Transferase 26 U/L (0-32); Blood Urea Nitrogen 15 mg/dL (6-20); Calcium 10.1 mg/dL (8.5-10.5); Carbon Dioxide 22 mmol/L (22-29); Chloride 98 mmol/L (98-107); Globulin 3.9 g/dL (1.3-4.6); Glomerular Filtration Rate 69.3 mL/min (90-130); Glucose 109 mg/dL (65-115); Osmolality Calculated 271 mOsm/kg (285-295); Sodium 130 mmol/L (136-145); Total Bilirubin 0.4 mg/dL (0.15-1.2); Total Protein 8.1 g/dL (6.6-8.7)
[2021-09-01 14:20] LABS: HCG, Serum Qual Negative (Negative)
[2021-09-01 14:32] VITALS: BP 137/89; PULSE 86; O2SAT 94
[2021-09-01 14:33] LABS: Add Urine Microscopic? YES; Bilirubin Urine 1+ (Negative); Blood Urine 2+ (Negative); Glucose Urine UA Norm (Normal); Ketones Urine 1+ (Negative); Leukocyte Esterase Urine Negative (Negative); Nitrate Urine Negative (Negative); Protein Urine Trace (Negative); Urine Appearance Clear (CLEAR); Urine Color Dark Yellow (Yellow); Urobilinogen Urine 1 mg/dL (Negative); pH Urine 5 (5-7)
[2021-09-01 14:34] LABS: Add Urine Culture? No; Bacteria Urine TRACE /hpf; Calcium Oxalate Crystals Urine 40-55 /hpf; RBC Urine 0-4 /hpf (0-2); WBC Urine 0-4 /hpf (0-5)
--- NOTE | 2021-09-01 14:36 | CTR_ITS ---
PROCEDURE INFORMATION: Exam: CT Abdomen And Pelvis Without Contrast Exam date and time: 09/01/2021 2:54 PM Age: 40 years old Clinical indication: Abdominal pain; Right; Prior surgery; Surgery date: 6+ months; Surgery type: C-sect; Patient HX: C/O R flank/groin pain; Additional info: R sided abdominal pain TECHNIQUE: Imaging protocol: Computed tomography of the abdomen and pelvis without contrast. Radiation optimization: All CT scans at this facility use at least one of these dose optimization techniques: automated exposure control; mA and/or kV adjustment per patient size (includes targeted exams where dose is matched to clinical indication); or iterative reconstruction. COMPARISON: No relevant prior studies available. RADIATION DOSE METRICS: Total DLP (mGy-cm): 2167.13 FINDINGS: Liver: Normal. No mass. Gallbladder and bile ducts: Normal. No calcified stones. No ductal dilation. Pancreas: Normal. No ductal dilation. Spleen: Normal. No splenomegaly. Adrenal glands: Normal. No mass. Kidneys and ureters: Normal. No hydronephrosis. Stomach and bowel: Unremarkable. No obstruction. No mucosal thickening. Appendix: No evidence of appendicitis. Intraperitoneal space: Unremarkable. No free air. No significant fluid collection. Arteries: Unremarkable. No abdominal aortic aneurysm. Lymph nodes: Unremarkable. No enlarged lymph nodes. Urinary bladder: Unremarkable as visualized. Reproductive: Unremarkable as visualized. Small cyst of the left ovary measures 3.4 cm x 3.[address] scan features other than a possible thin septation. Bones/joints: Unremarkable. No acute fracture. Soft tissues: Unremarkable. CT/CT kidney stone [id number] IMPRESSION: No acute findings.
== END 2021-09-01 16:25 | disposition home or self-care (01) ==
PROVIDERS: Emergency Provider Physician Assistant; PCP Nurse Practitioner Family
DX: R10.11 Right upper quadrant pain (principal); R10.31 Right lower quadrant pain; F17.210 Nicotine dependence, cigarettes, uncomplicated
CPT/HCPCS: 74176; 80053; 81001; 84703; 85025; 99283

== ENCOUNTER 2021-12-10 21:25 | Inpatient (IN) | payer MEDICAID, SELFPAY ==
[2021-12-10 21:25] VITALS: BMI 52.4
--- NOTE | 2021-12-10 21:28 | XRR_ITS ---
PROCEDURE INFORMATION: Exam: XR Chest Exam date and time: 12/10/2021 9:40 PM Age: 40 years old Clinical indication: Patient HX: Patient found unresponsive by EMS and intubated in the field. No further known history. ; Additional info: AMS TECHNIQUE: Imaging protocol: Radiologic exam of the chest. Views: 1 view. COMPARISON: CT kidney stone [id number] 09/01/2021 2:54 PM FINDINGS: Tubes, catheters and devices: Endotracheal tube tip over the distal trachea, 5 mm proximal to the stephane. Lungs: Unremarkable. No consolidation. Pleural spaces: Unremarkable. No pleural effusion. No pneumothorax. Heart/Mediastinum: Unremarkable. No cardiomegaly. Bones/joints: Unremarkable. XR/XR chest 1V portable [id number] IMPRESSION: Endotracheal tube tip over the distal trachea, 5 mm proximal to the stephane.
--- NOTE | 2021-12-10 21:28 | CTR_ITS ---
PROCEDURE INFORMATION: Exam: CT Head Without Contrast Exam date and time: 12/10/2021 11:12 PM Age: 40 years old Clinical indication: Altered mental status/memory loss; Additional info: AMS TECHNIQUE: Imaging protocol: Computed tomography of the head without contrast. Radiation optimization: All CT scans at this facility use at least one of these dose optimization techniques: automated exposure control; mA and/or kV adjustment per patient size (includes targeted exams where dose is matched to clinical indication); or iterative reconstruction. COMPARISON: No relevant prior studies available. RADIATION DOSE METRICS: Total DLP (mGy-cm): 1219.48 FINDINGS: Brain: Normal. No hemorrhage. Unremarkable white matter. No mass effect. Cerebral ventricles: No ventriculomegaly. Paranasal sinuses: Visualized sinuses are unremarkable. No fluid levels. Mastoid air cells: Visualized mastoid air cells are well aerated. Bones/joints: Unremarkable. No acute fracture. Soft tissues: Possible contusion or scar tissue over the right posterior frontal scalp, axial series 3, images 47-48. CT/CT head wo con* [id number] IMPRESSION: 1. Possible contusion or scar tissue over the right posterior frontal scalp, axial series 3, images 47-48. 2. No acute intracranial findings.
[2021-12-10 21:29] VITALS: BP 179/106; PULSE 100; RESP 12; TEMP 37.2; O2SAT 100
--- NOTE | 2021-12-10 21:32 | W.ED.GENADLT ---
HPI - General Adult General: Chief complaint: General Medical Stated complaint: respitory Time Seen by Provider: 12/10/21 21:25 History of Present Illness: Patient is a 40-year-old female with history of bipolar disorder depression presenting to the emergency room for concerns for altered mental status. Patient apparently was found down earlier today by family. EMS was called. When EMS arrived, patient was found to have multiple tablets of gabapentin. It is unclear with how much back pain patient has been taking or that is an acute ingestion of any sort. EMS noted the patient is pretty apneic and unresponsive. Patient was intubated in route. Brought to the emergency room. Vitals within normal limits. Rest of hx limited. Onset:unknown Duration:ongoing Location:home Severity:severe Review of Systems General: Reports: ROS unobtainable due to endotracheal tube and ROS unobtainable due to mental status PFS ED PFSH: Medical History (Updated 12/14/21 @ 00:02 by ) Alcohol intoxication AMS (altered mental status) Bipolar 1 disorder Bipolar disorder Blood clot in vein Cellulitis Depression Hypertensive emergency Lactic acidosis Medication overdose Migraine Respiratory acidosis Respiratory failure Saphenofemoral venous reflux Venous ulcer Ventilator dependence Family History Other CAD (coronary artery disease) Cancer Diabetes Social History Smoking and tobacco status: current every day smoker cigarettes Packs smoked per day: 1 Years cigarettes smoked: 20 Alcohol intake: current Alcohol intake frequency: few times a week Alcohol type: beer Lives independently: Yes Household members: children Housing: House Marital status: Single Number of children: 1 Pets and animals: No History of recent travel: No Female Reproductive History: Date of last menstrual period: 05/28/20 Physical Exam HENMT: OTHER: 7.5 ETT at 22cm at the lip Eye: OTHER: midsize and reactive Neck/C-Spine: OTHER: Supple Chest: OTHER: Symmetric chest rise Resp: OTHER: Breath sounds b/l Cardio: COMMON NORMALS: regular rate and regular rhythm RATE: regular rate RHYTHM: regular rhythm GI: OTHER: No focal tenderness palpation, no wincing or grimacing to palpation : OTHER: +16Fr Arguelles in place Extremity: OTHER: +Large area of rash and issac in the L leg Skin: OTHER: +L leg erythema with warm and clear demarcation with multiple areas of non-draining ulcerations centrally Course Vital Signs: Vital signs: Vital Signs Temperature 98.1 F 12/13/21 04:00 Pulse Rate 85 12/13/21 14:00 Respiratory Rate 15 12/13/21 14:00 Blood Pressure 140/100 12/13/21 17:46 Pulse Oximetry 96 12/13/21 13:15 Oxygen Delivery Me thod 12/13/21 10:00 Oxygen Flow Rate 3 12/12/21 22:00 Fraction of Inspir ed Oxygen 30 12/12/21 08:00 MDM - General Adult Medical Decision Making 40-year-old female with a history of obesity, bipolar disorder and recent left leg infection presenting to the emergency room with concerns of altered mental status. Patient was intubated in route. On physical exam, patient is noted to have a rash on the left distal leg. Patient is afebrile hemodynamically stable. Patient is sedated on propofol and fentanyl. Work-up showed white count 8.0. CT head negative for any acute finding. CT leg did not show any signs of necrotizing soft tissue infection. Patient received vancomycin and cefepime. Blood cultures been sent. A central line was placed in the left femoral vein. The left leg is consistent with erysipelas. Patient has barbiturates in the urine. Disposition: admission Lab Data : 12/13/21 02:02 12/13/21 02:[address] 12/10/21 21:28 IMPRESSION: 1. Possible contusion or scar tissue over the right posterior frontal scalp, axial series 3, images 47-48. 2. No acute intracranial findings. Chest X-Ray 12/10/21 21:33 IMPRESSION: 1. Interval placement of enteric tube looped in the body and fundus of the stomach with the tip in the gastric cardia directed superomedial towards the gastroesophageal junction. 2. Stable endotracheal tube. 3. Right discoid atelectasis and/or scarring over the right upper lung field impression. Lower Extremity CT 12/10/21 21:38 IMPRESSION: 1. Soft tissue stranding consistent with cellulitis of the visualized mid and lower leg and hindfoot. 2. Fluid collections are identified along the medial left mid leg external fascia and ankle, medial to the medial malleolus. The collection in the medial mid leg, is rim enhancing and likely represents an abscess. The collection in the medial aspect of the ankle may represent a developing abscess. 3. No CT evidence of osteomyelitis at this time. However, if osteomyelitis is strongly suspected, MRI may be helpful for further characterization. Laboratory Results WBC 7.1 10^3/uL (4.0-10.0) 12/11/21 01:32 RBC 4.38 10^6/uL (4.1-5.3) 12/11/21 01:32 Hgb 14.1 g/dL (11.5-15.3) 12/11/21 01:32 Hct 40.9 % (37.0-47.0) 12/11/21 01:32 MCV 93.4 fl (81-99) D 12/11/21 01:32 MCH 32.2 pg (28.0-34.0) 12/11/21 01:32 MCHC 34.5 g/dL (30.0-36.0) D 12/11/21 01:32 RDW 13.1 % (12.1-15.1) 12/11/21 01:32 Plt Count 259 10^3/cmm (130-400) 12/11/21 01:32 MPV 9.2 fL (7.4-10.4) 12/11/21 01:32 Neut % (Auto) 73.7 % 12/11/21 01:32 Lymph % (Auto) 15.7 % 12/11/21 01:32 [place] % (Auto) 8.9 % 12/11/21 01:32 Eos % (Auto) 0.6 % 12/11/21 01:32 Baso % (Auto) 0.8 % 12/11/21 01:32 Neut # (Auto) 5.20 10^3/uL (1.8-7.7) 12/11/21 01:32 Lymph # (Auto) 1.1 10^3/uL (0.8-4.8) 12/11/21 01:32 [place] # (Auto) 0.6 10^3/uL (0.2-0.9) 12/11/21 01:32 Eos # (Auto) 0.0 10^3/uL (0.0-0.8) 12/11/21 01:32 Baso # (Auto) 0.1 10^3/uL (0.0-0.1) 12/11/21 01:32 Nucleated RBC % (auto) 0 % 12/11/21 01:32 Nucleated RBCs # 0.0 /100WBC 12/11/21 01:32 D-Dimer 0.98 ug/mIFEU (0-0.59) H 12/10/21 21:32 Specimen Type Arterial 12/10/21 21:32 Sample Site Radial, right 12/10/21 21:32 ABG pH 7.15 (7.35-7.45) L* 12/10/21 21:32 ABG pCO2 66.0 mmHg (35-45) H* 12/10/21 21:32 ABG pO2 254.0 mmHg (80.0-100.0) H 12/10/21 21:32 ABG HCO3 23.1 mmol/L (22-26) 12/10/21 21:32 ABG Base Excess -7.1 mmol/L (-2.0-2.0) L 12/10/21 21:32 Eliel Test Pos 12/10/21 21:32 Hematocrit 47.4 % (37-47) H 12/10/21 21:32 O2 Delivery Device Vent 12/10/21 21:32 FiO2 100.0 % 12/10/21 21:32 PEEP 5.0 cmH20 12/10/21 21:32 Food And Dr[employer] ID [email or web address] 12/10/21 21:32 Sodium 136 mmol/L (136-145) 12/11/21 01:32 Potassium 4.7 mmol/L (3.5-5.1) 12/11/21 01:32 Chloride 100 mmol/L (98-107) 12/11/21 01:32 Carbon Dioxide 24 mmol/L (22-29) 12/11/21 01:32 Anion Gap 16.7 (5-19) 12/11/21 01:32 BUN 9 mg/dL (6-20) 12/11/21 01:32 Creatinine 0.7 mg/dL (0.5-0.9) 12/11/21 01:32 GFR Calculation 92.7 mL/min (90-130) 12/11/21 01:32 Glucose 126 mg/dL (65-115) H 12/11/21 01:32 POC Glucose 111 mg/dL (70-110) H 12/11/21 01:19 Calculated Osmolality 282 mOsm/kg (285-295) L 12/11/21 01:32 Lactate 2.7 mmol/L (0.5-2.2) H 12/10/21 21:42 Calcium 8.2 mg/dL (8.5-10.5) L 12/11/21 01:32 Magnesium 1.9 mg/dL (1.7-2.3) 12/11/21 01:32 Total Bilirubin 0.2 mg/dL (0.15-1.2) 12/11/21 01:32 AST 39 U/L (0-32) H 12/11/21 01:32 ALT 46 U/L (0-33) H 12/11/21 01:32 Alkaline Phosphatase 100 IU/L (35-105) 12/11/21 01:32 Ammonia 39 umol/L (11-51) 12/10/21 21:42 Creatine Kinase 62 U/L (26-192) 12/11/21 01:32 Troponin T Baseline 11 ng/L (0-10) H 12/10/21 21:42 Troponin T 120 Minute 10.06 ng/L (0-10) H 12/10/21 01:32 Delta Troponin T -0.94 ABS# (0-10) L 12/10/21 01:32 NT-Pro-B Natriuret Pep 30 pg/mL (0-125) 12/10/21 21:42 Total Protein 6.3 g/dL (6.6-8.7) L 12/11/21 01:32 Albumin 3.4 g/dL (3.5-5.2) L 12/11/21 01:32 Globulin 2.9 g/dL (1.3-4.6) 12/11/21 01:32 Lipase 44 U/L (13-60) 12/10/21 21:42 Procalcitonin 0.06 ng/mL (0-0.5) 12/11/21 01:32 TSH 6.51 uIU/mL (0.27-4.20) H 12/10/21 21:42 Free T4 0.70 ng/dL (0.82-1.77) L 12/10/21 21:42 HCG, Qual Negative (Negative) 12/10/21 21:42 Urine Color Yellow (Yellow) 12/10/21 21:48 Urine Appearance Clear (CLEAR) 12/10/21 21:48 Urine pH 6 (5-7) 12/10/21 21:48 Ur Specific [place] 1.020 (1.005-1.030) 12/10/21 21:48 Urine Protein 2+ (Negative) H 12/10/21 21:48 Urine Glucose (UA) Norm (Normal) 12/10/21 21:48 Urine Ketones Negative (Negative) 12/10/21 21:48 Urine Blood Neg (Negative) 12/10/21 21:48 Urine Nitrate Negative (Negative) 12/10/21 21:48 Urine Bilirubin Neg (Negative) 12/10/21 21:48 Urine Urobilinogen Norm mg/dL (Negative) 12/10/21 21:48 Ur Leukocyte Esterase Negative (Negative) 12/10/21 21:48 Urine RBC 0-4 /hpf (0-2) H 12/10/21 21:48 Urine WBC 25-40 /hpf (0-5) H 12/10/21 21:48 Ur Squamous Epith Cells 0-4 /hpf (0-5) H 12/10/21 21:48 Amorphous Sediment Not Reportable 12/10/21 21:48 Urine Bacteria Trace /hpf (NONE) 12/10/21 21:48 Urine Mucus 1+ /hpf 12/10/21 21:48 Salicylates < 0.3 mg/dL (3-10) L 12/10/21 21:42 Urine Opiates Screen Negative ng/mL (Negative) 12/10/21 21:48 Acetaminophen < 5.0 ug/mL (10-30) L 12/10/21 21:42 Ur Barbiturates Screen Positive ng/mL (Negative) H 12/10/21 21:48 Ur Phencyclidine Scrn Negative ng/mL (Negative) 12/10/21 21:48 Ur Amphetamines Screen Negative ng/mL (Negative) 12/10/21 21:48 U Benzodiazepines Scrn Negative ng/mL (Negative) 12/10/21 21:48 Urine Cocaine Screen Negative ng/mL (Negative) 12/10/21 21:48 U Marijuana (THC) Screen Positive ng/mL (Negative) H 12/10/21 21:48 Ethyl Alcohol 50 mg/dL (0-10) H 12/10/21 21:42 Serum Ketones Negative (Negative) 12/10/21 21:42 Critical Care Time Critical Care Time: Critical Care Time: Yes Total Critical Care Time: 35 Attestation: The high probability of a clinically significant, sudden or life threatening deterioration of the patient's neurological system(s) required my full and direct attention, intervention and personal management. The critical care time is as shown. This time is in addition to time spent performing any reported procedures but includes the following: [x] Data and vital sign review and interpretation [x] Patient assessment, examination and intervention [x] Documentation [x] Medication orders and management Discharge Plan Discharge Patient Disposition: Admitted As Inpatient Admit Provider: Felicita Griffiths Clinical Impression: AMS (altered mental status), Cellulitis Condition: Stable Discharge Diet: Low Salt Discharge Activity: Increase activity as tolerated Coding Level of Care Code ED Fishing Hand for Marjorie Lopez Exam Problem Focused
--- NOTE | 2021-12-10 21:33 | XRR_ITS ---
PROCEDURE INFORMATION: Exam: XR Chest Exam date and time: 12/10/2021 10:34 PM Age: 40 years old Clinical indication: Device placement; Ng tube; Additional info: Ng placement TECHNIQUE: Imaging protocol: Radiologic exam of the chest. Views: 1 view. COMPARISON: CR (CHEST, ) 12/10/2021 9:40 PM FINDINGS: Tubes, catheters and devices: Interval placement of enteric tube looped in the body and fundus of the stomach with the tip in the gastric cardia directed superomedial towards the gastroesophageal junction. Stable endotracheal tube. Lungs: Right discoid atelectasis and/or scarring over the right upper lung field impression. Pleural spaces: Unremarkable. No pleural effusion. No pneumothorax. Heart/Mediastinum: Unremarkable. No cardiomegaly. Bones/joints: Unremarkable. XR/XR chest 1V portable [id number] IMPRESSION: 1. Interval placement of enteric tube looped in the body and fundus of the stomach with the tip in the gastric cardia directed superomedial towards the gastroesophageal junction. 2. Stable endotracheal tube. 3. Right discoid atelectasis and/or scarring over the right upper lung field impression.
[2021-12-10 21:35] VITALS: RESP 14
--- NOTE | 2021-12-10 21:38 | CTR_ITS ---
PROCEDURE INFORMATION: Exam: CT Left Lower Extremity With Contrast; Lower Leg Exam date and time: 12/10/2021 11:23 PM Age: 40 years old Clinical indication: Cellulitis and swelling, leg or foot; Lower leg; Left; Additional info: L leg erythema and wound TECHNIQUE: Imaging protocol: CT of the Left lower extremity with intravenous contrast was performed. Exam focused on the lower leg. Radiation optimization: All CT scans at this facility use at least one of these dose optimization techniques: automated exposure control; mA and/or kV adjustment per patient size (includes targeted exams where dose is matched to clinical indication); or iterative reconstruction. Contrast material: OMNIPAQUE; Contrast volume: 90 ml; Contrast route: INTRAVENOUS (IV); COMPARISON: No relevant prior studies available. RADIATION DOSE METRICS: Total DLP (mGy-cm): 388.27 FINDINGS: Bones/joints: There is no underlying fracture or dislocation. There is a small plantar calcaneal spur. At the tibiotalar joint, there are small subcentimeter subchondral cyst in the articular surface of the talus that may be degenerative in etiology. Soft tissues: There is diffuse stranding and inflammatory change in the subcutaneous soft tissues of the left leg and hindfoot. In the subcutaneous adipose tissues, along the external muscular fascia, there is a crescentic fluid collection 7 mm deep seen in the most cephalad image and extending caudally for 7 cm (axial series 5, images 1 - 40). In in the soft tissues medial to the medial malleolus, there is a fluid collection measuring 3 cm in anteroposterior dimension by 1 cm deep x 3.6 cm in craniocaudal extent (axial series 5, image 92; coronal series 9, image 74). There is an Achilles enthesophyte. CT/CT lower leg LT w con [id number] IMPRESSION: 1. Soft tissue stranding consistent with cellulitis of the visualized mid and lower leg and hindfoot. 2. Fluid collections are identified along the medial left mid leg external fascia and ankle, medial to the medial malleolus. The collection in the medial mid leg, is rim enhancing and likely represents an abscess. The collection in the medial aspect of the ankle may represent a developing abscess. 3. No CT evidence of osteomyelitis at this time. However, if osteomyelitis is strongly suspected, MRI may be helpful for further characterization.
[2021-12-10 21:43] LABS: Arterial Blood Gas Hematocrit 47.4 % (37-47); Base Excess ABG -7.1 mmol/L (-2.0-2.0); Blood Gas Allen Test Pos; Blood Gas Operator Identificat WALCI; Blood Gas Sample Site Radial, right; Blood Gas Sample Type Arterial; HCO3 ABG 23.1 mmol/L (22-26); Oxygen Device VENT
[2021-12-10 21:44] LABS: ABG PH Result 7.15 (7.35-7.45)
[2021-12-10 21:46] LABS: Basophils # 0.1 10^3/uL (0.0-0.1); Basophils % 1.4 %; Eosinophils # 0.2 10^3/uL (0.0-0.8); Eosinophils % 2.4 %; Hematocrit 47.5 % (37.0-47.0); Hemoglobin 15.2 g/dL (11.5-15.3); Lymphocytes # 2.5 10^3/uL (0.8-4.8); Lymphocytes % 30.8 %; Mean Corpuscular Hemoglobin 31.7 pg (28.0-34.0); Mean Corpuscular Volume 99.2 fl (81-99); Monocytes # 1.1 10^3/uL (0.2-0.9); Monocytes % 13.5 %; Neutrophils # 4.11 10^3/uL (1.8-7.7); Neutrophils % 51.4 %; Nucleated Red Blood Cells % 0 %; Platelet Count 261 10^3/cmm (130-400); Red Blood Count 4.79 10^6/uL (4.1-5.3); Red Cell Distribution Width 13.1 % (12.1-15.1)
[2021-12-10] MEDS: midazolam 1 mg/mL INJ 2 mL 10 MG IVP ×2 (21:47→23:37)
[2021-12-10] MEDS: propofol 1,000 MG/100 ML INJ 9.39 MG IV (21:58)
[2021-12-10 22:00] LABS: Ketone (Acetest) Serum Negative (Negative)
[2021-12-10 22:03] LABS: Glucose Point of Care 117 mg/dL (70-110)
[2021-12-10 22:03] LABS: HCG, Serum Qual Negative (Negative)
[2021-12-10 22:05] LABS: Ammonia 39 umol/L (11-51); Troponin(5th) Baseline 11 ng/L (0-10)
[2021-12-10 22:06] LABS: Lactate (Lactic Acid level) 2.7 mmol/L (0.5-2.2)
[2021-12-10 22:09] LABS: Amphetamines Screen Urine Negative (Negative); Barbiturates Screen Urine Positive (Negative); Benzodiazepines Screen Urine Negative (Negative); Cocaine Screen Urine Negative (Negative); Opiate Screen Urine Negative (Negative); PCP Screen Urine Negative (Negative); THC Screen Urine Positive (Negative)
[2021-12-10 22:19] LABS: Acetaminophen < 5.0 ug/mL (10-30); Alanine Aminotransferase 52 U/L (0-33); Albumin Level 4.1 g/dL (3.5-5.2); Alcohol Level 50 mg/dL (0-10); Alkaline Phosphatase 112 IU/L (35-105); Anion Gap 21.1 (5-19); Aspartate Amino Transferase 44 U/L (0-32); Blood Urea Nitrogen 10 mg/dL (6-20); Calcium 8.4 mg/dL (8.5-10.5); Carbon Dioxide 21 mmol/L (22-29); Chloride 101 mmol/L (98-107); Globulin 2.8 g/dL (1.3-4.6); Glomerular Filtration Rate 69.3 mL/min (90-130); Glucose 117 mg/dL (65-115); Lipase 44 U/L (13-60); Osmolality Calculated 288 mOsm/kg (285-295); Potassium 4.1 mmol/L (3.5-5.1); Salicylate < 0.3 mg/dL (3-10); Sodium 139 mmol/L (136-145); Total Bilirubin 0.2 mg/dL (0.15-1.2); Total Protein 6.9 g/dL (6.6-8.7)
[2021-12-10 22:21] LABS: NT Pro B Type Natriuretic Pept 30 pg/mL (0-125); Thyroid Stimulating Hormone 6.51 uIU/mL (0.27-4.20)
--- NOTE | 2021-12-10 23:14 | PM.HP ---
Providers/Chief Complaint Primary Care Provider: Angie Velarde APN Chief Complaint: respitory History of Present Illness Patricia Qureshi is a 40 year old female with history of bipolar disorder and possibly DVT/PE (mother is unsure) was brought to the hospital via EMS. She was intubated in the field. History was obtained from mother and ER physician. Patient's mother states that the patient lives with her daughter. She said her granddaughter came over to her house and reported that her mom had passed out . 911 was called and EMS came over. Patient was found to be altered and there was a bottle of gabapentin beside her. It is unclear if patient ingested those tablets or the bottle was just there. EMS noted the patient was pretty apneic and unresponsive. She was intubated on route and brought to the ER. Unable to obtain any review of systems has been patient was seen she was sedated and intubated. Patient's mom does state that patient has had a left lower leg infection that she has been dealing with for the last few months and follows up with the wound clinic. She is unsure of details as to who she sees. Mom lives 2 houses down from her daughter. She states she does not know any other history. She cannot confirm any of her medications as well. She does note that patient goes to [facility] in [place]. Mother states patient smokes but unsure of amount and also drinks alcohol. She drinks a bottle of beer every night. No other hard liquor. She has never had alcohol withdrawal seizures before and scored 0 on CAGE ED course: On arrival blood pressure 179/106, pulse ox 100%, FiO2 100%, respirate 14, pulse 80s, temperature 99. WBC 8. CT head negative for any acute finding except contusion noted. CT leg performed did not show any signs of necrotizing soft tissue infection as per ER physician. Final report is pending however. Patient was given a dose of vancomycin and cefepime. Blood cultures were sent. Right groin femoral line was placed. ER physician had a suspicion of erysipelas. Barbiturates positive in urine drug screen however we are unsure what medication was given to patient during intubation. The ER doc could verify rocuronium but had no other information. Blood alcohol level positive Medications/Allergies Home Medications Medication Instructions Recorded Confirmed Last Taken Type aspirin 325 mg tablet 325 mg PO DAILY 10/09/2809/07/21 02/13/20 History ibuprofen 800 mg tablet 800 mg PO TID PRN Pain 02/14/20 09/07/21 02/13/20 History Allergies Allergy/AdvReac Type Severity Reaction Status Date / Time No Known Allergies Allergy Verified 09/07/21 09:06 PFSH Acute PFSH: Medical History Bipolar 1 disorder Depression Family History Other CAD (coronary artery disease) Cancer Diabetes Social History Smoking and tobacco status: current every day smoker cigarettes Packs smoked per day: 1 Years cigarettes smoked: 20 Alcohol intake: current Alcohol intake frequency: few times a week Alcohol type: beer Lives independently: Yes Household members: children Housing: House Marital status: Single Number of children: 1 Pets and animals: No History of recent travel: No Female Reproductive History: Date of last menstrual period: 05/28/20 Vitals/I&O/Wt Last Vital Signs Temp 99.0 F 12/10/21 21:29 Pulse 100 12/10/21 21:29 Resp 14 12/10/21 21:35 BP 179/106 12/10/21 21:29 Pulse Ox 100 12/10/21 21:29 O2 Del Method 12/10/21 21:29 FiO2 100 12/10/21 21:35 12/10/21 12/10/21 12/11/21 14:59 22:59 06:59 Intake Total 4.382 / 4.382 Balance 4.382 / 4.382 Weight last 48 hrs Weight 156.489 kg Physical Exam Narrative: General: Intubated sedated, obese female HEENT: Normocephalic, atraumatic, Cardio: Regular rate rhythm, normal S1-S2, Respiratory: Clear to auscultation bilaterally with transmitted breath sounds from vent GI: Abdomen soft, nontender, obese rounded abdomen bowel sounds + Extremities: Pulses 2+, no edema, large left lower extremity ulcer present, venous stasis changes present Arguelles draining clear yellow urine Urinary Catheter Management: Arguelles: Cath Placed During This Visit: yes Urinary Catheter Date of Insertion: 12/10/21 Urinary Catheter Time of Insertion: 21:51 Data : 12/10/21 21:42 12/10/21 21:42 A&P Assessment and plan (1) AMS (altered mental status): Status: Acute (2) Cellulitis: Status: Acute (3) Saphenofemoral venous reflux: Status: Acute (4) Respiratory failure: Status: Acute (5) Ventilator dependence: Status: Acute (6) Respiratory acidosis: Status: Acute (7) Alcohol intoxication: Status: Acute (8) Medication overdose: Status: Acute (9) Bipolar disorder: Status: Acute (10) Lactic acidosis: Status: Acute Plan #Vent dependent acute respiratory failure #Questionable gabapentin overdose #Alcohol intoxication #Chronic venous stasis with large left lower extremity ulcer present #History of saphenofemoral venous reflux, #History of bipolar disorder -Do not have much information on the patient. Unconfirmed home medications. [facility] ? Continue vancomycin and cefepime at this time ? QTC 471. EKG did not show acute ischemic changes ? Troponin negative. Delta Trope negative -Lactic acid 2.7 at admission. Normal saline bolus ordered. Continue normal saline at 100 cc/h ? Continue fentanyl, propofol ? Check CT lower leg report. Result pending. -Gas on arrival 7./254. We will recheck ABG ? Anion gap 21.1, AST 44, ALT 52, alkaline phosphatase 112 -TSH 6.51, free T4 0.70 -Urine drug screen negative for salicylates, acetaminophen. Positive for marijuana, barbiturates. -Check CT chest, abdomen, pelvis. Pt given contrast load earlier with CT left leg. I will hold off on another contrast load and do imaging without contrast. - check CPK - Discussed with poison control helpline. Gabapentin will peak between 1-5 hours. Keep Mg and K on higher side of normal. Overdose > 10 g total. Watch for rhabdomyolysis. Narcan not recommended. CHeck serial EKG to monitor QTC. - Continue to monitor in ICU. Re-assess in AM. -Wound care consult in AM. Full code DVT prophylaxis: Heparin subcu GI prophylaxis: Protonix 40 IV daily Procedures Central Line Placement^ Right Femoral: Time out performed: Yes Patient placed on monitor/pulse ox: Yes prep: mask, gown and gloves Central line prep: Povidone-Iodine 1%, Chlorhexidine scrub and sterile drapes applied Ultrasound used for placement: Yes Central line lumen inserted: triple Post procedure: sutured in place, good blood return, all ports aspirated, flushed, capped and sterile dressing applied Patient tolerated procedure: well and no complications Additional comments: The right inguinal region was prepped using chlorhexidine scrub, Covidien solution draped in sterile fashion using a full drape and sterile probe cover and sterile gel employed. Femoral vein was identified with ultrasound. Right femoral line was placed using Seldinger technique. Sterile dressing applied. Patient tolerated procedure without any hemodynamic compromise. At the time of procedure completion all ports aspirated and flushed properly. Estimated blood loss [address] Maurice, ER physician was present the whole time during procedure and assisted and supervised me during this line placement. Attestations Medical Necessity Statement*: Patient will cross greater than 2 midnights for management of vent dependent respiratory failure. Critical Care Time: The high probability of a clinically significant, sudden or life threatening deterioration of the patient's [] system(s) required my full and direct attention, intervention and personal management. The critical care time is as shown. 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
--- NOTE | 2021-12-10 23:29 | ECG_ITS ---
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 Measurements Intervals [place] Rate: 102 P: 48 ME: 120 QRS: 47 QRSD: 85 T: 4 QT: 361 QTc: 471 Interpretive Statements SINUS TACHYCARDIA ABNORMAL RHYTHM ECG INTERPRETATION BASED ON A DEFAULT AGE OF 40 YEARS No previous ECG available for comparison Electronically Signed On 12-12-2021 6:38:01 CDT by Bernardo Montejo M.D. [id number]
[2021-12-11] VITALS (110 sets, daily range): BP systolic 82–171; BP diastolic 52–113; PULSE 64–109; RESP 12–29; TEMP 36.4–37.3; O2SAT 92–100; BMI 42.9
[2021-12-11 00:20] LABS: ABG PCO2 42.7 mmHg (35-45); ABG PH Result 7.35 (7.35-7.45); Arterial Blood Gas Hematocrit 43.7 % (37-47); Blood Gas Allen Test Pos; Blood Gas Operator Identificat WALCI; Blood Gas Sample Site Radial, left; Blood Gas Sample Type Arterial; HCO3 ABG 23.7 mmol/L (22-26); Oxygen Device VENT
[2021-12-11 01:21] LABS: Glucose Point of Care 111 mg/dL (70-110)
[2021-12-11 02:07] LABS: Basophils # 0.1 10^3/uL (0.0-0.1); Basophils % 0.8 %; Eosinophils % 0.6 %; Hematocrit 40.9 % (37.0-47.0); Hemoglobin 14.1 g/dL (11.5-15.3); Lymphocytes # 1.1 10^3/uL (0.8-4.8); Lymphocytes % 15.7 %; Mean Corpuscular HGB Conc 34.5 g/dL (30.0-36.0); Mean Corpuscular Hemoglobin 32.2 pg (28.0-34.0); Mean Corpuscular Volume 93.4 fl (81-99); Mean Platelet Volume 9.2 fL (7.4-10.4); Monocytes # 0.6 10^3/uL (0.2-0.9); Monocytes % 8.9 %; Neutrophils % 73.7 %; Nucleated Red Blood Cells % 0 %; Platelet Count 259 10^3/cmm (130-400); Red Blood Count 4.38 10^6/uL (4.1-5.3); Red Cell Distribution Width 13.1 % (12.1-15.1); White Blood Count 7.1 10^3/uL (4.0-10.0)
[2021-12-11 02:08] LABS: Troponin 5 2HR 10.06 ng/L (0-10)
[2021-12-11 02:09] LABS: Troponin 5 2HR Delta -0.94 ABS# (0-10)
[2021-12-11] MEDS: propofol 1,000 MG/100 ML INJ 46.95 MG IV ×11 (02:09→23:55)
[2021-12-11] MEDS: chlorhexidine gluconate 4% Btl 118 mL 1 APPLIC TOPICAL (02:11)
--- NOTE | 2021-12-11 02:14 | PC.PHAR ---
Vancomycin is dosed at 1gm IVPB every 8 hours to produce a predicted trough level of 14.36 (population based pharmacokinetic analysis). A trough level has been ordered from the lab to be obtained before the fourth dose to confirm and adjust if needed. The Zosyn is dosed at 3.375gm IVPB evvery8 hours on the basis of the creatinine clearance of 132.4
[2021-12-11 02:16] LABS: D Dimer 0.98 ug/mIFEU (0-0.59)
[2021-12-11 02:21] LABS: Alanine Aminotransferase 46 U/L (0-33); Albumin Level 3.4 g/dL (3.5-5.2); Alkaline Phosphatase 100 IU/L (35-105); Anion Gap 16.7 (5-19); Aspartate Amino Transferase 39 U/L (0-32); Blood Urea Nitrogen 9 mg/dL (6-20); Calcium 8.2 mg/dL (8.5-10.5); Carbon Dioxide 24 mmol/L (22-29); Chloride 100 mmol/L (98-107); Creatinine Clr Calc Pharmacy 150.9816; Globulin 2.9 g/dL (1.3-4.6); Glomerular Filtration Rate 92.7 mL/min (90-130); Glucose 126 mg/dL (65-115); Magnesium 1.9 mg/dL (1.7-2.3); Osmolality Calculated 282 mOsm/kg (285-295); Potassium 4.7 mmol/L (3.5-5.1); Sodium 136 mmol/L (136-145); Total Bilirubin 0.2 mg/dL (0.15-1.2); Total Protein 6.3 g/dL (6.6-8.7)
[2021-12-11] MEDS: vancomycin 1,000 MG in sodium chloride 0.9% 250 ML 250 MG IV ×4 (02:44→18:07)
[2021-12-11 02:51] LABS: Creatine Phosphokinase 62 U/L (26-192)
[2021-12-11 02:54] LABS: Add Urine Culture? Yes; Add Urine Microscopic? YES; Bacteria Urine TRACE /hpf; Bilirubin Urine Neg (Negative); Blood Urine Neg (Negative); Glucose Urine UA Norm (Normal); Ketones Urine Negative (Negative); Leukocyte Esterase Urine Negative (Negative); Mucus Urine 1+ /hpf; Nitrate Urine Negative (Negative); Protein Urine 2+ (Negative); RBC Urine 0-4 /hpf (0-2); Squamous Epithelial Cell Urine 0-4 /hpf (0-5); Urine Appearance Clear (CLEAR); Urine Color Yellow (Yellow); Urobilinogen Urine Norm (Negative); WBC Urine 25-40 /hpf (0-5); pH Urine 6 (5-7)
[2021-12-11] MEDS: cefepime 1,000 MG in sodium chloride 0.9% (plus) 50 ML 100 MG IV ×2 (02:57→04:16)
[2021-12-11] MEDS: sodium chloride 0.9% 1,000 ML 999 ML IV (02:58)
[2021-12-11 03:00] LABS: Procalcitonin 0.06 ng/mL (0-0.5)
[2021-12-11] MEDS: heparin 5,000 unit/mL INJ 1 mL 5000 UNIT SUBCUT ×3 (03:00→17:21)
[2021-12-11 03:11] LABS: Lactic Sepsis W/Reflex 1.5 mmol/L (0.5-2.2)
[2021-12-11 03:14] LABS: Troponin 5 6HR 8.67 ng/L (0-10)
--- NOTE | 2021-12-11 03:22 | ECG_ITS ---
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 Measurements Intervals [place] Rate: 71 P: 44 AK: 147 QRS: 29 QRSD: 85 T: 54 QT: 433 QTc: 473 Interpretive Statements SINUS RHYTHM Compared to ECG 12/10/2021 21:32:28 Sinus tachycardia no longer present Electronically Signed On 12-12-2021 6:40:50 CDT by Bernardo Montejo M.D. [id number]
[2021-12-11 03:23] LABS: Troponin 5 6HR Delta -2.33 ng/L (0-12)
[2021-12-11] MEDS: sodium chloride 0.9% 1,000 ML 100 ML IV ×2 (04:08→14:21)
--- NOTE | 2021-12-11 04:22 | USCV_ITS ---
Patricia Qureshi Age: 40 Gender: F : 1980 Exam Date: 12/11/2021 08:07 Ordering Phys: Felicita Griffiths MD Technologist: [place] [facility] [place] Indication: ULCER LT LEG Risk Factors: Previous Vascular Surgery: RIGHT LEFT BP: 110.0 / 73.00 BP: 110.0/ 73.00 0 0 Waveform Velocity (cm/s) Velocity (cm/s) Waveform Triphasic 111.7 Iliac Prox 124.9 Triphasic Triphasic 107.8 Iliac Mid 126.2 Triphasic Triphasic 128.8 Iliac Distal 124.9 Triphasic Triphasic 111.7 SUPPLY AIDE 118.3 Triphasic Triphasic 120.9 SFA Prox 139.3 Triphasic Triphasic 107.8 SFA Mid 131.5 Triphasic Triphasic 111.7 SFA Dist 111.7 Triphasic Biphasic 59.0 POP 57.3 Triphasic Triphasic 93.3 ROLLER PNEUMATIC 82.9 Triphasic Triphasic 73.0 DPA 69.2 Triphasic 0.9 PRATIMA 0.8 FINDINGS Resting PRATIMA of 0.9 on the right side and 0.8 on the left side Normal arterial Doppler waveforms bilaterally CONCLUSIONS 1. Slightly diminished resting ABIs bilaterally-most likely related to technical issues. Mild PAD cannot be excluded 2. No significant arterial obstruction, based on the above findings Dr Bernardo Montejo MD [facility] (Electronically Signed) Final Date: 12 December 2021 08:12 S
--- NOTE | 2021-12-11 04:22 | USCV_ITS ---
Patricia Qureshi Age: 40 Gender: F : 1980 Exam Date: 12/11/2021 07:58 Ordering Phys: Felicita Griffiths MD Technologist: Exam [place] [facility] [place] Indication: BED STASIS PROCEDURES: The venous duplex Doppler examination of both lower extremities was performed in the standard fashion. The following venous structures were evaluated: common femoral vein, profunda vein, proximal portion of the greater saphenous vein, superficial femoral vein, and the popliteal vein. In addition, the posterior tibial and peroneal trunk were evaluated. FINDINGS: Normal 2-D Doppler and augmentation and compressibility throughout the lower extremity venous structures. Additional imaging through the proximal calf veins also reveals no thrombus. Limited evaluation of the greater saphenous vein is patent with no thrombus.. CONCLUSIONS No evidence of DVT in the above-mentioned identifiable veins. Dr Bernardo Montejo MD [facility] (Electronically Signed) Final Date: 12 December 2021 08:07 S
[2021-12-11 04:36] LABS: Basophils # 0.1 10^3/uL (0.0-0.1); Basophils % 1.1 %; Eosinophils # 0.1 10^3/uL (0.0-0.8); Eosinophils % 0.8 %; Hematocrit 38.6 % (37.0-47.0); Hemoglobin 12.8 g/dL (11.5-15.3); Lymphocytes # 1.6 10^3/uL (0.8-4.8); Lymphocytes % 25.9 %; Mean Corpuscular HGB Conc 33.2 g/dL (30.0-36.0); Mean Corpuscular Hemoglobin 31.1 pg (28.0-34.0); Mean Corpuscular Volume 93.7 fl (81-99); Mean Platelet Volume 9.4 fL (7.4-10.4); Monocytes # 0.6 10^3/uL (0.2-0.9); Monocytes % 9.4 %; Neutrophils # 3.86 10^3/uL (1.8-7.7); Neutrophils % 62.8 %; Nucleated Red Blood Cells % 0 %; Platelet Count 259 10^3/cmm (130-400); Red Blood Count 4.12 10^6/uL (4.1-5.3); Red Cell Distribution Width 13.1 % (12.1-15.1); White Blood Count 6.2 10^3/uL (4.0-10.0)
[2021-12-11 04:54] LABS: Alanine Aminotransferase 41 U/L (0-33); Albumin Level 3.1 g/dL (3.5-5.2); Alkaline Phosphatase 88 IU/L (35-105); Anion Gap 15.3 (5-19); Aspartate Amino Transferase 34 U/L (0-32); Blood Urea Nitrogen 9 mg/dL (6-20); Calcium 7.9 mg/dL (8.5-10.5); Carbon Dioxide 24 mmol/L (22-29); Chloride 104 mmol/L (98-107); Globulin 2.6 g/dL (1.3-4.6); Glomerular Filtration Rate 110.7 mL/min (90-130); Glucose 108 mg/dL (65-115); Magnesium 1.8 mg/dL (1.7-2.3); Osmolality Calculated 287 mOsm/kg (285-295); Potassium 4.3 mmol/L (3.5-5.1); Sodium 139 mmol/L (136-145); Total Bilirubin 0.2 mg/dL (0.15-1.2); Total Protein 5.7 g/dL (6.6-8.7)
[2021-12-11 05:45] LABS: Add Urine Microscopic? NO; Charge for UA Resulting for Rev
[2021-12-11 05:51] LABS: Bilirubin Urine Neg (Negative); Blood Urine Neg (Negative); Glucose Urine UA Norm (Normal); Ketones Urine Negative (Negative); Leukocyte Esterase Urine Negative (Negative); Nitrate Urine Negative (Negative); Protein Urine Neg (Negative); Urine Appearance Clear (CLEAR); Urine Color Yellow (Yellow); Urobilinogen Urine Norm (Negative); pH Urine 6 (5-7)
--- NOTE | 2021-12-11 07:55 | PC.PHAR ---
unable to verify meds with pt due to pt being intubated-pts mother dle mulligan [phone] verified what medications she knew the pt was taking-pts mother states the pt takes a 325mg aspirin daily-ibuprofen 800mg prn and states the pt takes fishbiotics as needed pts mother states she is unsure what the name of the fishbiotic is and how many the pt takes a day
[2021-12-11] MEDS: pantoprazole 40 mg SDV IVP (08:21)
[2021-12-11 08:57] LABS: Erythrocyte Sedimentation Rate 2 mm/hr (0-15)
[2021-12-11 09:15] LABS: C Reactive Protein 40.4 mg/L (0.0-4.9)
[2021-12-11] MEDS: levothyroxine 100 mcg Tablet PO (09:15)
[2021-12-11] MEDS: piperacillin-tazobactam 3.375 GM in sodium chloride 0.9% (plus) 50 ML IV ×2 (09:16→17:21)
[2021-12-11 09:22] LABS: Procalcitonin 0.06 ng/mL (0-0.5)
--- NOTE | 2021-12-11 10:03 | PC.CHAP ---
Pastoral Care Encounter/Spiritual Assessment Type of Contact [] Declined dredge captain visit [] Patient/Family/Request visit [] Outpatient visit [] Follow-up visit [] Physician referral [] Code/Alert [x] Routine visit [] Staff referral [] Actively dying [x] Patient sleeping [x] Family support [] [] Out of room [] Palliative care [] [] Receiving care in room [] Pre-surgical visit [] Trauma [] Long length of stay [x] ICU visit [] Other: Relational/Emotional Strength [] Patient feels connected with others/family/visitors/staff [] Distress [] Loneliness/isolation [] Abandonment Spirituality of Patient [] Person of Denisha [] Attends Confucianism of their Denisha [] Believes in Prayer [] Reads Bible or Jainism materials [] There are Spiritual issues to be addressed Contract Technical Writer Interventions [x] Prayer [] Active listening [] Non-anxious presence [] Spiritual/emotional support [] Crisis/trauma care [] Spiritual counseling [] Bereavement support [] Provided bereavement packet [] Provided Bible/devotional materials [] Provided toy/stuffed animal, coloring book to patient or family member [] Provided Communion [] Anointing/[place] [] Salvation [x] Completed spiritual assessment [] Other: Impact on Illness or Injury [] Angry [] Fearful [] Anxious [] Often cries [] Exhaustion [] Unable to work [] Unable to attend sikh [] Unable to walk/stand [] Unable to read [] Unable to drive [] Unable to eat/drink [] Unable to sleep [] Unable to be with family [] Patient intubated [] Other: Summary Time spent with patient
[2021-12-11 11:06] LABS: ABG PCO2 52.2 mmHg (35-45); ABG PH Result 7.28 (7.35-7.45); Arterial Blood Gas Hematocrit 45.4 % (37-47); Base Excess ABG -2.8 mmol/L (-2.0-2.0); Blood Gas Allen Test Pos; Blood Gas Operator Identificat GD; Blood Gas Sample Site Radial, left; Blood Gas Sample Type Arterial; HCO3 ABG 24.7 mmol/L (22-26); Oxygen Device VENT; PO2 ABG 55.4 mmHg (80.0-100.0)
--- NOTE | 2021-12-11 11:15 | PC.NURSE ---
Dr gave order to shut off sedation and extubate patient if ABG was within normal range. When all sedation was shut off pt was able to follow commands but was attempting to pull tube out. ABG was abnormal and sedation was turned back on.
[2021-12-11] MEDS: dexmedeTOMIDine 0.9 % NaCL 400 MCG/100 ML PREMIX 6.5 MCG IV (12:00)
--- NOTE | 2021-12-11 14:05 | PM.PN ---
Subjective Subjective: Did review lab work and drug screen with her mother who was at the bedside Mother is stating that she has not been in touch with her lately Mother is stating that she drinks 2 cans of beer almost daily basis She smokes as well This morning we tried weaning trial patient was getting agitated waking up trying to pull her endotracheal tube, she did not pass weaning trial hence we had to put her back on sedatives and Precedex Will do another weaning trial tomorrow morning Hypercapnic respiratory failure did improve on subsequent ABG however pH has not been compensated She was tachypneic during weaning trial that is why seen was made not to extubate her today Lactic acid has improved Troponins trending down Patient has abnormal TSH and low T4 I have started on levothyroxine Vitals/I&O/Wt Last Vital Signs Temp 98.5 F 12/11/21 08:00 Pulse 69 12/11/21 14:00 Resp 18 12/11/21 13:48 BP 94/56 12/11/21 14:00 Pulse Ox 95 12/11/21 13:48 O2 Del Method 12/11/21 01:41 FiO2 30 12/11/21 13:48 12/10/21 12/11/21 12/11/21 22:59 06:59 14:59 Intake Total 4.382 / 4.382 1819.647 / 1824.029 251.234 / 251.234 Output Total 500 / 500 Balance 4.382 / 4.382 1319.647 / 1324.029 251.234 / 251.234 Weight last 48 hrs Weight 130 kg Weight 127.958 kg Weight 156.489 kg Physical Exam Narrative: Patient clinically looks euvolemic Assisted bilateral breath sounds with rhonchi She is agitated trying to get rid of endotracheal tube Blood pressure on the softer side Afebrile Intubated, sedated however arousable Abdomen soft Patient able to move her extremities Mother at the bedside Neuro exam is limited No signs of cellulitis Urinary Catheter Management: Arguelles: Cath Placed During This Visit: yes Reason for Continuing Indwelling Catheter: Accurate Measurement of Urinary Output in Critically Ill Patients Urinary Catheter Date of Insertion: 12/11/21 Urinary Catheter Time of Insertion: 01:00 Data : 12/11/21 03:25 12/11/21 03:25 Micro: Microbiology 12/11/21 06:54 Blood Culture - Preliminary Blood SPECIMEN COLLECTED 12/10/21 01:32 Blood Culture - Preliminary Blood SPECIMEN COLLECTED A&P Assessment and plan (1) Lactic acidosis: Status: Acute (2) Bipolar disorder: Status: Acute (3) Medication overdose: Status: Acute (4) Alcohol intoxication: Status: Acute (5) Respiratory acidosis: Status: Acute (6) Ventilator dependence: Status: Acute (7) Respiratory failure: Status: Acute (8) AMS (altered mental status): Status: Acute (9) Cellulitis: Status: Acute Plan Respiratory failure requiring mechanical ventilation Hypercapnic respite failure related to drug overdose, Patient is intubated and sedated Weaning trial failed 12/11 secondary to tachypnea Will do another weaning trial tomorrow Patient will be kept n.p.o. for now she was retaining Continue IV fluids and antibiotics 's keep her sedated with propofol fentanyl and Precedex, propofol was at 50 and fentanyl at 80 Patient was waking up try to get rid of endotracheal tube I do not suspect any strokelike features Polysubstance abuse Drinks 2 cans of beer every day Active smoker No previous history of alcohol withdrawal or DTs Patient is not UTI Currently on antibiotics Will follow urine culture Abnormal troponin however does not meet ACS protocol, troponin trending down EKG without ischemic or infarctive changes Nonpurulent cellulitis of lower extremity Concern for abscess formation, will touch base with our radiologist to go over her imaging again to see if any to drain abscess on clinical exam wound seems to be showing good granulation tissue without any active purulent drainage Patient is full code N.p.o. 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
[2021-12-11] MEDS: ipratropium-albuterol 3 mL Neb INHALATION ×2 (15:12→20:01)
--- NOTE | 2021-12-11 19:00 | PC.NURSE ---
Fentanyl Upon assessment of patient, Fentanyl administering at 125 mcg/hr while MAR displays 75 mcg/hr. MAR updated to show administration rate.
[2021-12-11] MEDS: budesonide 0.5 mg/2 mL Neb INHALATION (20:01)
[2021-12-11] MEDS: quetiapine 25 mg Tablet PO (20:16)
[2021-12-11 20:34] LABS: Glucose Point of Care 125 mg/dL (70-110)
[2021-12-11] MEDS: dexmedeTOMIDine 0.9 % NaCL 400 MCG/100 ML PREMIX 13 MCG IV (23:17)
[2021-12-12] VITALS (55 sets, daily range): BP systolic 106–195; BP diastolic 68–143; PULSE 57–107; RESP 17–24; TEMP 36.4–37.3; O2SAT 91–100; BMI 44.2
[2021-12-12] MEDS: sodium chloride 0.9% 1,000 ML 100 ML IV (00:37)
[2021-12-12] MEDS: chlorhexidine gluconate 4% Btl 118 mL 1 APPLIC TOPICAL (00:38)
[2021-12-12 01:19] LABS: Basophils # 0.1 10^3/uL (0.0-0.1); Basophils % 0.8 %; Eosinophils # 0.1 10^3/uL (0.0-0.8); Eosinophils % 1.6 %; Hematocrit 40.3 % (37.0-47.0); Hemoglobin 13.6 g/dL (11.5-15.3); Lymphocytes # 1.9 10^3/uL (0.8-4.8); Mean Corpuscular HGB Conc 33.7 g/dL (30.0-36.0); Mean Corpuscular Hemoglobin 31.9 pg (28.0-34.0); Mean Corpuscular Volume 94.4 fl (81-99); Mean Platelet Volume 9.1 fL (7.4-10.4); Monocytes # 0.6 10^3/uL (0.2-0.9); Monocytes % 9.1 %; Neutrophils # 3.48 10^3/uL (1.8-7.7); Neutrophils % 57.3 %; Nucleated Red Blood Cells % 0 %; Platelet Count 202 10^3/cmm (130-400); Red Blood Count 4.27 10^6/uL (4.1-5.3); Red Cell Distribution Width 13.5 % (12.1-15.1); White Blood Count 6.1 10^3/uL (4.0-10.0)
[2021-12-12] MEDS: piperacillin-tazobactam 3.375 GM in sodium chloride 0.9% (plus) 50 ML IV ×2 (01:29→09:19)
[2021-12-12] MEDS: heparin 5,000 unit/mL INJ 1 mL 5000 UNIT SUBCUT ×3 (01:30→18:04)
[2021-12-12 01:38] LABS: Vancomycin Trough 16.1 ug/mL (10-15)
[2021-12-12 01:40] LABS: Alanine Aminotransferase 33 U/L (0-33); Albumin Level 2.8 g/dL (3.5-5.2); Alkaline Phosphatase 91 IU/L (35-105); Blood Urea Nitrogen 5 mg/dL (6-20); C Reactive Protein 95.5 mg/L (0.0-4.9); Carbon Dioxide 20 mmol/L (22-29); Chloride 106 mmol/L (98-107); Creatinine Clr Calc Pharmacy 152.3591; Globulin 2.9 g/dL (1.3-4.6); Glomerular Filtration Rate 92.7 mL/min (90-130); Glucose 129 mg/dL (65-115); Osmolality Calculated 285 mOsm/kg (285-295); Sodium 138 mmol/L (136-145); Total Bilirubin 0.2 mg/dL (0.15-1.2); Total Protein 5.7 g/dL (6.6-8.7)
[2021-12-12 01:46] LABS: Aspartate Amino Transferase 31 U/L (0-32)
[2021-12-12 01:47] LABS: Procalcitonin 0.06 ng/mL (0-0.5)
[2021-12-12] MEDS: propofol 1,000 MG/100 ML INJ 46.95 MG IV ×4 (02:03→09:15)
[2021-12-12] MEDS: vancomycin 1,000 MG in sodium chloride 0.9% 250 ML 250 MG IV ×2 (02:11→09:20)
[2021-12-12] MEDS: ipratropium-albuterol 3 mL Neb INHALATION ×2 (02:25→08:15)
[2021-12-12 02:47] LABS: Glucose Point of Care 139 mg/dL (70-110)
[2021-12-12 04:41] LABS: ABG PCO2 32.3 mmHg (35-45); Arterial Blood Gas Hematocrit 42.1 % (37-47); Base Excess ABG -3.9 mmol/L (-2.0-2.0); Blood Gas Allen Test Pos; Blood Gas Operator Identificat JB; Blood Gas Sample Site Radial, right; Blood Gas Sample Type Arterial; Blood Gas Tidal Volume 0.45; Oxygen Device VENT; PO2 ABG 81.9 mmHg (80.0-100.0)
[2021-12-12] MEDS: dexmedeTOMIDine 0.9 % NaCL 400 MCG/100 ML PREMIX 13 MCG IV (05:50)
[2021-12-12] MEDS: levothyroxine 100 mcg Tablet PO (05:52)
[2021-12-12] MEDS: budesonide 0.5 mg/2 mL Neb INHALATION ×2 (08:15→19:55)
[2021-12-12] MEDS: pantoprazole 40 mg SDV IVP (09:20)
[2021-12-12 09:32] LABS: Glucose Point of Care 116 mg/dL (70-110)
--- NOTE | 2021-12-12 10:16 | PC.CHAP ---
Pastoral Care Encounter/Spiritual Assessment Type of Contact [] Declined executive associate visit [] Patient/Family/Request visit [] Outpatient visit [] Follow-up visit [] Physician referral [] Code/Alert [x] Routine visit [] Staff referral [] Actively dying [x] Patient sleeping [x] Family support [] [] Out of room [] Palliative care [] [] Receiving care in room [] Pre-surgical visit [] Trauma [] Long length of stay [x] ICU visit [] Other: Relational/Emotional Strength [] Patient feels connected with others/family/visitors/staff [] Distress [] Loneliness/isolation [] Abandonment Spirituality of Patient [] Person of Denisha [] Attends Hindu of their Denisha [] Believes in Prayer [] Reads Bible or Methodist materials [] There are Spiritual issues to be addressed Service Unit Operator Interventions [x] Prayer [] Active listening [] Non-anxious presence [] Spiritual/emotional support [] Crisis/trauma care [] Spiritual counseling [] Bereavement support [] Provided bereavement packet [] Provided Bible/devotional materials [] Provided toy/stuffed animal, coloring book to patient or family member [] Provided Communion [] Anointing/[place] [] Salvation [x] Completed spiritual assessment [] Other: Impact on Illness or Injury [] Angry [] Fearful [] Anxious [] Often cries [] Exhaustion [] Unable to work [] Unable to attend jainism [] Unable to walk/stand [] Unable to read [] Unable to drive [] Unable to eat/drink [] Unable to sleep [] Unable to be with family [] Patient intubated [] Other: Summary Time spent with patient
--- NOTE | 2021-12-12 10:55 | PC.RESP ---
extubated and placed on 3lpm nc tolerated well
--- NOTE | 2021-12-12 11:03 | PC.NURSE ---
Pt was extubated at 1050 to 3L nasal canula. Pt tolerated well and is able to follow commands and answer questions.
[2021-12-12] MEDS: dexmedeTOMIDine 0.9 % NaCL 400 MCG/100 ML PREMIX 9.75 MCG IV (13:15)
--- NOTE | 2021-12-12 13:50 | P.PN_ITS ---
Subjective Subjective: Patient successfully extubated to 3 L nasal cannula I will resume her diet to GI soft Physical therapy today I have asked her nurse Yael to verify her home medications Vitals/I&O/Wt Last Vital Signs Temp 97.5 F L 12/12/21 08:00 Pulse 69 12/12/21 12:30 Resp 18 12/12/21 08:00 BP 170/115 12/12/21 12:30 Pulse Ox 99 12/12/21 12:30 O2 Del Method 12/12/21 08:00 FiO2 30 12/12/21 08:00 12/11/21 12/12/21 12/12/21 22:59 06:59 14:59 Intake Total 750.163 / 2410.004 1890.083 / 4300.087 633.642 / 633.642 Output Total 850 / 850 1825 / 2675 Balance -99.837 / 1560.004 65.083 / 1625.087 633.642 / 633.642 Weight last 48 hrs Weight 131.995 kg Weight 130 kg Weight 127.958 kg Weight 156.489 kg Physical Exam Narrative: Patient extubated to nasal cannula Nonfocal neuro exam Good granulation tissue of left leg, venous stasis ulcer No active drainage No signs of ischemia Patient is hypertensive Morbidly obese Abdomen distended however soft Bilateral breath sounds with mild rhonchi however no wheezing S1, S2 Urinary Catheter Management: Arguelles: Cath Placed During This Visit: yes Reason for Continuing Indwelling Catheter: Accurate Measurement of Urinary Output in Critically Ill Patients Urinary Catheter Date of Insertion: 12/11/21 Urinary Catheter Time of Insertion: 01:00 Data : 12/12/21 01:15 12/12/21 01:15 Micro: Microbiology 12/11/21 08:03 Gram Stain - Final Sputum - Endotracheal Tube Aspirate Sputum Culture - Preliminary Gram Negative Rods 12/10/21 21:48 Urine Culture - Final Urine,Clean Catch 12/11/21 06:54 Blood Culture - Preliminary Blood NEGATIVE TO DATE 12/10/21 01:32 Blood Culture - Preliminary Blood NEGATIVE TO DATE 12/11/21 05:30 MRSA Culture - Final Nose A&P Assessment and plan (1) Lactic acidosis: Status: Acute (2) Bipolar disorder: Status: Acute (3) Medication overdose: Status: Acute (4) Alcohol intoxication: Status: Acute (5) Ventilator dependence: Status: Acute (6) Respiratory acidosis: Status: Acute (7) Respiratory failure: Status: Acute (8) AMS (altered mental status): Status: Acute (9) Cellulitis: Status: Acute (10) Saphenofemoral venous reflux: Status: Acute (11) Venous ulcer: Status: Acute Plan We extubated her successfully on 12/12 Currently on 3 L nasal cannula, wean to room air PT evaluation Patient is asking for food, after bedside evaluation I can have her eat GI soft diet New diagnosis of hypothyroidism started levothyroxine 100 mcg Discontinue Protonix I will keep Seroquel for bedtime Hypertension: Discontinue IV fluids I have asked her nurse Yael to verify her medications by calling her pharmacy Heparin DVT prophylaxis on board Continue thiamine and folic acid Venous stasis ulcer with cellulitis No abscess We will switch her to doxycycline No signs of gas gangrene, no abscess did verify with the radiologist Attestations Medical Necessity Statement*: Possible discharge tomorrow Time Spent in Patient Care: 35 Coding Level of Care Code Acute 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
--- NOTE | 2021-12-12 14:52 | PC.NURSE ---
Fentanyl and propofol was wasted with STAN Larson
--- NOTE | 2021-12-12 14:55 | PC.NURSE ---
Nurse and doctor were in room around 1400 and noticed urine was green.
[2021-12-12] MEDS: lisinopril 10 mg Tablet PO (15:04)
--- NOTE | 2021-12-12 16:06 | PC.NURSE ---
Arguelles and central line removed was removed at 1600 per orders. Dry dressing was placed to right groin area.
--- NOTE | 2021-12-12 17:51 | PC.PT ---
Went to see patient, patient sitting up in chair with nurse present, nurse and patient state no needs, nurse states patient independent in and out of bed without difficulty, and steady on her feet during transfers, and that they will ambulate later, and contact PT if any safety deficits or mobility deficits noted. Will DC PT, unless recontacted by nursing staff.
[2021-12-12] MEDS: sennosides-docusate Tablet 1 TAB PO (18:04)
[2021-12-12] MEDS: doxycycline 100 mg Tablet PO (18:04)
[2021-12-12] MEDS: quetiapine 25 mg Tablet PO (20:06)
[2021-12-12] MEDS: metoprolol tartrate 25 mg Tablet PO (20:06)
[2021-12-12] MEDS: morphine 4 mg/mL SDV 1 mL 2 MG IVP (20:10)
--- NOTE | 2021-12-12 20:32 | ECG_ITS ---
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 Measurements Intervals [place] Rate: 102 P: 48 IA: 141 QRS: 34 QRSD: 80 T: 56 QT: 350 QTc: 456 Interpretive Statements SINUS TACHYCARDIA ABNORMAL RHYTHM ECG Compared to ECG 12/11/2021 03:22:38 Sinus rhythm no longer present Electronically Signed On 12-13-2021 14:22:06 CDT by Edgar Grace M.D. [email or web address] Technologiesmonroe regional hospitalYou.Dopromedica memorial hospitalPellet Technology [employer]/store/[id number]
--- NOTE | 2021-12-12 20:41 | PC.NURSE ---
Chest Pain Patient complaining of pain in left leg. While flushing IV for pain medication, patient states Oh, my chest hurts! then begins to gag. Upon inquiry patient states that she is experiencing tingling in left arm and hand in addition to nausea. BP elevated, HR 102, all other vitals stable. Besides tachycardia, telemetry shows no other changes. One minute later, when asked to rate her pain, patient states It's all gone now and stated that the nausea, chest pain, and tingling sensation were no longer present. Dr. Griffiths informed of symptoms; order received for troponin and ECG series.
[2021-12-12 21:03] LABS: Glucose Point of Care 112 mg/dL (70-110)
[2021-12-12 21:27] LABS: Troponin(5th) Baseline 11 ng/L (0-10)
--- NOTE | 2021-12-12 22:27 | ECG_ITS ---
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 Measurements Intervals [place] Rate: 97 P: 54 IA: 141 QRS: 26 QRSD: 78 T: 29 QT: 359 QTc: 456 Interpretive Statements SINUS RHYTHM Compared to ECG 12/12/2021 20:32:01 Sinus tachycardia no longer present Electronically Signed On 12-13-2021 14:26:05 CDT by Edgar Grace M.D. [email or web address].[facility].[employer]/store/[id number]
[2021-12-13] VITALS (43 sets, daily range): BP systolic 115–198; BP diastolic 87–127; PULSE 79–93; RESP 6–27; TEMP 36.7–36.8; O2SAT 94–98; BMI 43.0
--- NOTE | 2021-12-13 | PC.NURSE ---
BP Patient's systolic BP ranging from 166-188 with a diastolic BP ranging from 100-115. Ordered dose of Metoprolol administered at 2005, no additional PRN medications ordered for hypertension. Dr. Griffiths notified of elevated trend; order received for 5 mg Hydralazine IVP once. See MAR for administration.
[2021-12-13] MEDS: hyDRALAzine 20 mg/mL INJ 1 mL 5 MG IVP (00:37)
[2021-12-13] MEDS: acetaminophen 325 mg Tablet 650 MG PO ×2 (01:09→10:20)
[2021-12-13] MEDS: heparin 5,000 unit/mL INJ 1 mL 5000 UNIT SUBCUT ×3 (01:09→17:00)
[2021-12-13 02:14] LABS: Basophils # 0.1 10^3/uL (0.0-0.1); Basophils % 0.8 %; Eosinophils # 0.2 10^3/uL (0.0-0.8); Eosinophils % 1.9 %; Hematocrit 43.1 % (37.0-47.0); Lymphocytes # 2.6 10^3/uL (0.8-4.8); Lymphocytes % 28.8 %; Mean Corpuscular HGB Conc 32.5 g/dL (30.0-36.0); Mean Corpuscular Hemoglobin 31.5 pg (28.0-34.0); Mean Corpuscular Volume 96.9 fl (81-99); Mean Platelet Volume 9.3 fL (7.4-10.4); Monocytes # 0.8 10^3/uL (0.2-0.9); Monocytes % 8.4 %; Neutrophils # 5.51 10^3/uL (1.8-7.7); Neutrophils % 59.9 %; Nucleated Red Blood Cells % 0 %; Platelet Count 193 10^3/cmm (130-400); Red Blood Count 4.45 10^6/uL (4.1-5.3); Red Cell Distribution Width 13.1 % (12.1-15.1); White Blood Count 9.2 10^3/uL (4.0-10.0)
--- NOTE | 2021-12-13 02:24 | ECG_ITS ---
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 Measurements Intervals [place] Rate: 82 P: 38 TX: 145 QRS: 23 QRSD: 85 T: 49 QT: 387 QTc: 453 Interpretive Statements SINUS RHYTHM Compared to ECG 12/12/2021 22:27:06 No significant changes Electronically Signed On 12-13-2021 14:27:52 CDT by Edgar Grace M.D. [id number]
[2021-12-13 02:32] LABS: Glucose Point of Care 98 mg/dL (70-110)
[2021-12-13 02:36] LABS: Blood Urea Nitrogen 5 mg/dL (6-20); Calcium 8.4 mg/dL (8.5-10.5); Carbon Dioxide 23 mmol/L (22-29); Chloride 108 mmol/L (98-107); Glomerular Filtration Rate 92.7 mL/min (90-130); Glucose 84 mg/dL (65-115); Osmolality Calculated 290 mOsm/kg (285-295); Sodium 142 mmol/L (136-145)
[2021-12-13 02:37] LABS: Troponin 5 6HR 9.67 ng/L (0-10)
[2021-12-13 02:58] LABS: Troponin 5 6HR Delta -1.33 ng/L (0-12)
--- NOTE | 2021-12-13 04:20 | PC.NURSE ---
BP Patient's blood pressure 144/113 at 0245 with the diastolic BP maintaining in the 110s. Dr. Griffiths notified; no new order received. At 0410, BP 159/124 with the previous BP 182/103. Dr. Griffiths contacted again and order received for 10 mg labetalol IVP once now. Medication administered per JUL.
[2021-12-13] MEDS: labetalol 5 mg/mL SDV 20mL 10 MG IVP (04:24)
[2021-12-13] MEDS: levothyroxine 100 mcg Tablet PO (06:01)
--- NOTE | 2021-12-13 07:10 | PC.NURSE ---
Pain Throughout night patient complained of pain in her head and in the left lower leg; see pain assessments. At 1940, morphine administered for pain. Upon reassessment, patient stated that the morphine didn't help at all; following this, offer was made to contact doctor for further pain medication and patient was asked if there was anything that could be done to alleviate pain. Patient stated that she did not want any more pain medication and that there was nothing that could be done for her pain. At 0000, patient complaining of more pain in her leg and a headache. Patient refused morphine and requested tylenol. Dr. Griffiths contacted and order received for 650 mg Tylenol PO PRN Q6H for pain. Tylenol administered per JUL. Again, nurse asked if she could do anything for her pain; patient requested cool ice pack for leg. Ice pack placed for approximately 20 minutes for patient comfort. At 0600, patient states pain is still present. Morphine offered, patient refused. Patient stated I'll try the tylenol again when its due. When offered alternative pain relief measures such as repositioning, warm blankets, additional medication, another ice pack were offered, patient refused all. Day nurse notified of pain control issues and when next tylenol dose is due.
[2021-12-13 08:09] LABS: Glucose Point of Care 103 mg/dL (70-110)
[2021-12-13] MEDS: chlorthalidone 25 mg Tablet 12.5 MG PO (09:14)
[2021-12-13] MEDS: lisinopril 20 mg Tablet 40 MG PO (09:14)
[2021-12-13] MEDS: doxycycline 100 mg Tablet PO ×2 (09:14→16:59)
[2021-12-13] MEDS: nicotine 21 mg Patch 1 PATCH TRANSDERMA (09:14)
[2021-12-13] MEDS: sennosides-docusate Tablet 1 TAB PO ×2 (09:14→16:59)
[2021-12-13] MEDS: thiamine 100 mg Tablet PO (09:14)
[2021-12-13] MEDS: folic acid 1 mg Tablet PO (09:14)
[2021-12-13] MEDS: ipratropium-albuterol 3 mL Neb INHALATION (09:21)
[2021-12-13] MEDS: metoprolol tartrate 50 mg Tablet PO (09:21)
[2021-12-13] MEDS: budesonide 0.5 mg/2 mL Neb INHALATION (09:21)
--- NOTE | 2021-12-13 10:00 | PC.NURSE ---
Patient up to the chair this am for breakfast with one assist. Patient tolerated transfer well. Linen change completed. Patient noted to be A&Ox4. Patient had BM this morning. BP noted to be elevated this am, see V/S as documented. This nurse obtained a manual BP on patient per physician's request. BP noted to be 150/102, physician notified. Orders placed to start nicardipine drip per protocol, pt does not meet criteria to start drip at this time. This nurse gave PRN order of Tylenol for headache this am as patient was complaining of 8/10 pain. This nurse attempted to call and notify physician of pain and more current BP of 132/92 at 1120, no response at this time, will attempt again at a later time.
--- NOTE | 2021-12-13 10:19 | PM.PN ---
Subjective Subjective: Patient is hypertensive, I have decreased her levothyroxine dose which was started during this visit I asked her ICU nurse Cindy to verify her home medications 1 more time I have added chlorthalidone, lisinopril 40 mg, metoprolol 50 mg, this did not reduce her blood pressure, I eventually put her on Cardene drip I did mention patient that there was plan to discharge her today however because of high blood pressure our plan will change Vitals/I&O/Wt Last Vital Signs Temp 98.1 F 12/13/21 04:00 Pulse 93 12/13/21 09:30 Resp 16 12/13/21 09:30 BP 195/108 12/13/21 09:00 Pulse Ox 94 12/13/21 09:30 O2 Del Method 12/13/21 09:22 O2 Flow Rate 3 12/12/21 22:00 FiO2 30 12/12/21 08:00 12/12/21 12/13/21 12/13/21 22:59 06:59 14:59 Intake Total 31.75 / 1666.000 90 / 1756.000 Output Total 750 / 750 Balance -718.25 / 916.000 90 / 1006.000 Weight last 48 hrs Weight 128.367 kg Weight 131.995 kg Physical Exam Narrative: Patient is sitting in a chair Awake and alert Breathing well on room air Hypertensive No signs of stroke No active signs of withdrawal Abdomen soft No audible stridor or wheezing Left foot ulcer with good relation tissue without any active purulent drainage EOMI, PERRLA Urinary Catheter Management: Arguelles: Cath Placed During This Visit: yes, but has since been removed by the nurse Reason for Continuing Indwelling Catheter: Accurate Measurement of Urinary Output in Critically Ill Patients Urinary Catheter Date of Insertion: 12/11/21 Urinary Catheter Time of Insertion: 01:00 Date Urinary Catheter Removed: 12/12/21 Time Urinary Catheter Discontinued: 14:00 Data : 12/13/21 02:02 12/13/21 02:02 Micro: Microbiology 12/11/21 08:03 Gram Stain - Final Sputum - Endotracheal Tube Aspirate Sputum Culture - Preliminary Gram Negative Rods 12/10/21 21:48 Urine Culture - Final Urine,Clean Catch 12/11/21 06:54 Blood Culture - Preliminary Blood NEGATIVE TO DATE A&P Assessment and plan (1) Hypertensive emergency: Status: Acute (2) Venous ulcer: Status: Acute (3) Lactic acidosis: Status: Acute (4) Bipolar disorder: Status: Acute (5) Medication overdose: Status: Acute (6) Alcohol intoxication: Status: Acute (7) Respiratory acidosis: Status: Acute (8) Ventilator dependence: Status: Acute (9) Respiratory failure: Status: Acute (10) AMS (altered mental status): Status: Acute (11) Cellulitis: Status: Acute Plan Patient extubated successfully 8/ Awake and alert Denying suicidal homicidal ideation Patient wants to go home however I will not be able to discharge her today she has hypertensive emergency diastolic blood pressure is touching 118mmhg, I have started on Cardene drip I will like to add chlorthalidone, lisinopril, metoprolol, amlodipine Substance abuse Alcohol abuse Left leg cellulitis: No acute worsening I have de-escalated antibiotics to doxycycline Metabolic encephalopathy related to hypercapnia: Resolved Possibly discharge tomorrow Cardiac diet Hypothyroidism: New diagnosis I am giving her low-dose for now Attestations Medical Necessity Statement*: Discharge tomorrow Time Spent in Patient Care: 40 Coding Level of Care Code Acute 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
[2021-12-13 11:50] LABS: Glucose Point of Care 147 mg/dL (70-110)
--- NOTE | 2021-12-13 12:38 | P.DS_ITS ---
Discharge Providers Date of Admission: 12/11/21 01:54 Date of Discharge: December 13, 2021 Attending Provider at Admission: Felicita Griffiths MD Attending Provider at Discharge: Jeffrey Pham MD Primary Care Provider: Angie Velarde APN Diagnoses at Discharge Discharge Diagnosis (1) Hypertensive emergency: Status: Acute (2) Venous ulcer: Status: Acute (3) Lactic acidosis: Status: Acute (4) Bipolar disorder: Status: Acute (5) Medication overdose: Status: Acute (6) Alcohol intoxication: Status: Acute (7) Respiratory acidosis: Status: Acute (8) Ventilator dependence: Status: Acute (9) Respiratory failure: Status: Acute (10) AMS (altered mental status): Status: Acute (11) Cellulitis: Status: Acute Reason for Visit Reason for Visit: respitory Hospital Course Hospital Course Admitting doctor HPI Dr. Griffiths Patricia Qureshi is a 40 year old female with history of bipolar disorder and possibly DVT/PE (mother is unsure) was brought to the hospital via EMS.? She was intubated in the field.? History was obtained from mother and ER physician.? Patient's mother states that the patient lives with her daughter.? She said her granddaughter came over to her house and reported that her mom had passed out .? 911 was called and EMS came over.? Patient was found to be altered and there was a bottle of gabapentin beside her.? It is unclear if patient ingested those tablets or the bottle was just there.? EMS noted the patient was pretty apneic and unresponsive.? She was intubated on route and brought to the ER.? Unable to obtain any review of systems has been patient was seen she was sedated and intubated.? Patient's mom does state that patient has had a left lower leg infection that she has been dealing with for the last few months and follows up with the wound clinic.? She is unsure of details as to who she sees.? Mom lives 2 houses down from her daughter.? She states she does not know any other history.? She cannot confirm any of her medications as well.? She does note that patient goes to [facility] in [place].? Mother states patient smokes but unsure of amount and also drinks alcohol.? She drinks a bottle of beer every night. Hospital course Patient was intubated and sedated at the time of admission for hypercapnic respiratory failure, metabolic encephalopathy related to polysubstance abuse. Patient was successfully extubated to nasal cannula on 12/12, she was treated with IV antibiotics for her cellulitis of left leg. I did reviewed imaging with Dr. Dominguez who did did not agree with abscess formation. Wound of leg is looking dry no active drainage, it is showing good granulation tissue. Patient was eventually weaned off to room air. He remained hypertensive. Patient is stating that she is used to 6-7 cans of beer every day, at home only uses aspirin or ibuprofen on as-needed basis. 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 She is able to walk on her own without any assistance. For her hypertension and hypertensive regimen added at the time of discharge, I will also give her thiamine and folic acid. Doxycycline for cellulitis of her leg provided. I will also give her wound care clinic appointment. Venous duplex, venous Doppler unremarkable. Please note her TSH is high, low T4, I have started her on low-dose levothy roxine, will give her close PCP appointment her TSH needs to be checked in 3 weeks Initially on 12/13 there was plan to start Cardene drip to bring her blood pressure down however with use of p.o. antihypertensive regimen her blood pressure has come down to 145/90 mmHg Physical Exam Narrative: Pleasant cooperative, female No active signs of withdrawal No signs of stroke Satting well on room air Blood pressure improved Abdomen soft S1, S2 Venous stasis ulcer without active drainage Left leg Urinary Catheter Management: Arguelles: Cath Placed During This Visit: yes, but has since been removed by the nurse Reason for Continuing Indwelling Catheter: Accurate Measurement of Urinary Output in Critically Ill Patients Urinary Catheter Date of Insertion: 12/11/21 Urinary Catheter Time of Insertion: 01:00 Date Urinary Catheter Removed: 12/12/21 Time Urinary Catheter Discontinued: 14:00 Discharge Data Studies Completed and Pending Completed Studies During Hospitalization Category Date Time Status CT head wo con* [id number] Urgent Cat Scan 12/10/21 21:[address] lower leg LT w con [id number] Urgent Cat Scan 12/10/21 21:38 Completed XR chest 1V portable [id number] Stat Exams 12/10/21 21:33 Completed XR chest 1V portable [id number] Urgent Exams 12/10/21 21:28 [place] [id number] Routine Ultrasound 12/11/21 04:22 Completed US venous duplex lower extremity bilat [CV venous Ultrasound 12/11/21 04:22 [place] [id number]] Routine Pending at discharge Category Date Time Status Blood Culture Stat Lab 12/10/21 01:32 Results Sputum Culture and Gram Stain Stat Lab 12/11/21 08:03 Results Radiology Impressions Head CT 12/10/21 21:28 IMPRESSION: 1. Possible contusion or scar tissue over the right posterior frontal scalp, axial series 3, images 47-48. 2. No acute intracranial findings. Chest X-Ray 12/10/21 21:33 IMPRESSION: 1. Interval placement of enteric tube looped in the body and fundus of the stomach with the tip in the gastric cardia directed superomedial towards the gastroesophageal junction. 2. Stable endotracheal tube. 3. Right discoid atelectasis and/or scarring over the right upper lung field impression. Lower Extremity CT 12/10/21 21:38 IMPRESSION: 1. Soft tissue stranding consistent with cellulitis of the visualized mid and lower leg and hindfoot. 2. Fluid collections are identified along the medial left mid leg external fascia and ankle, medial to the medial malleolus. The collection in the medial mid leg, is rim enhancing and likely represents an abscess. The collection in the medial aspect of the ankle may represent a developing abscess. 3. No CT evidence of osteomyelitis at this time. However, if osteomyelitis is strongly suspected, MRI may be helpful for further characterization. Laboratory Results WBC 9.2 10^3/uL (4.0-10.0) 12/13/21 02:02 RBC 4.45 10^6/uL (4.1-5.3) 12/13/21 02:02 Hgb 14.0 g/dL (11.5-15.3) 12/13/21 02:02 Hct 43.1 % (37.0-47.0) 12/13/21 02:02 MCV 96.9 fl (81-99) 12/13/21 02:02 MCH 31.5 pg (28.0-34.0) 12/13/21 02:02 MCHC 32.5 g/dL (30.0-36.0) 12/13/21 02:02 RDW 13.1 % (12.1-15.1) 12/13/21 02:02 Plt Count 193 10^3/cmm (130-400) 12/13/21 02:02 MPV 9.3 fL (7.4-10.4) 12/13/21 02:02 Neut % (Auto) 59.9 % 12/13/21 02:02 Lymph % (Auto) 28.8 % 12/13/21 02:02 [place] % (Auto) 8.4 % 12/13/21 02:02 Eos % (Auto) 1.9 % 12/13/21 02:02 Baso % (Auto) 0.8 % 12/13/21 02:02 Neut # (Auto) 5.51 10^3/uL (1.8-7.7) 12/13/21 02:02 Lymph # (Auto) 2.6 10^3/uL (0.8-4.8) 12/13/21 02:02 [place] # (Auto) 0.8 10^3/uL (0.2-0.9) 12/13/21 02:02 Eos # (Auto) 0.2 10^3/uL (0.0-0.8) 12/13/21 02:02 Baso # (Auto) 0.1 10^3/uL (0.0-0.1) 12/13/21 02:02 Nucleated RBC % (auto) 0 % 12/13/21 02:02 Nucleated RBCs # 0.0 /100WBC 12/13/21 02:02 ESR 2 mm/hr (0-15) 12/11/21 03:25 D-Dimer 0.98 ug/mIFEU (0-0.59) H 12/10/21 21:32 Specimen Type Arterial 12/12/21 04:28 Sample Site Radial, right 12/12/21 04:28 ABG pH 7.40 (7.35-7.45) 12/12/21 04:28 ABG pCO2 32.3 mmHg (35-45) L 12/12/21 04:28 ABG pO2 81.9 mmHg (80.0-100.0) 12/12/21 04:28 ABG HCO3 20.0 mmol/L (22-26) L 12/12/21 04:28 ABG Base Excess -3.9 mmol/L (-2.0-2.0) L 12/12/21 04:28 Eliel Test Pos 12/12/21 04:28 Hematocrit 42.1 % (37-47) 12/12/21 04:28 O2 Delivery Device Vent 12/12/21 04:28 FiO2 30.0 % 12/12/21 04:28 Tidal Volume 0.45 12/12/21 04:28 PEEP 5.0 cmH20 12/12/21 04:28 Compress Machine Operator ID Alejandro 12/12/21 04:28 Sodium 142 mmol/L (136-145) 12/13/21 02:02 Potassium 4.0 mmol/L (3.5-5.1) 12/13/21 02:02 Chloride 108 mmol/L (98-107) H 12/13/21 02:02 Carbon Dioxide 23 mmol/L (22-29) 12/13/21 02:02 Anion Gap 15.0 (5-19) 12/13/21 02:02 BUN 5 mg/dL (6-20) L 12/13/21 02:02 Creatinine 0.7 mg/dL (0.5-0.9) 12/13/21 02:02 GFR Calculation 92.7 mL/min (90-130) 12/13/21 02:02 Glucose 84 mg/dL (65-115) 12/13/21 02:02 POC Glucose 147 mg/dL (70-110) H 12/13/21 11:43 Calculated Osmolality 290 mOsm/kg (285-295) 12/13/21 02:02 Lactic Acid 1.5 mmol/L (0.5-2.2) 12/11/21 02:19 Lactate 2.7 mmol/L (0.5-2.2) H 12/10/21 21:42 Calcium 8.4 mg/dL (8.5-10.5) L 12/13/21 02:02 Magnesium 1.8 mg/dL (1.7-2.3) 12/11/21 03:25 Total Bilirubin 0.2 mg/dL (0.15-1.2) 12/12/21 01:15 AST 31 U/L (0-32) 12/12/21 01:15 ALT 33 U/L (0-33) 12/12/21 01:15 Alkaline Phosphatase 91 IU/L (35-105) 12/12/21 01:15 Ammonia 39 umol/L (11-51) 12/10/21 21:42 Creatine Kinase 62 U/L (26-192) 12/11/21 01:32 Troponin T Baseline 11 ng/L (0-10) H 12/12/21 20:40 Troponin T 120 Minute 10.00 ng/L (0-10) 12/12/21 22:41 Delta Troponin T -1.00 ABS# (0-10) L 12/12/21 22:41 Troponin T Hi Sens 6Hr 9.67 ng/L (0-10) 12/13/21 02:02 Troponin T Hi Sens 6Hr Delta -1.33 ng/L (0-12) L 12/13/21 02:02 C-Reactive Protein 95.5 mg/L (0.0-4.9) H 12/12/21 01:15 NT-Pro-B Natriuret Pep 30 pg/mL (0-125) 12/10/21 21:42 Total Protein 5.7 g/dL (6.6-8.7) L 12/12/21 01:15 Albumin 2.8 g/dL (3.5-5.2) L 12/12/21 01:15 Globulin 2.9 g/dL (1.3-4.6) 12/12/21 01:15 Lipase 44 U/L (13-60) 12/10/21 21:42 Procalcitonin 0.06 ng/mL (0-0.5) 12/12/21 01:15 TSH 6.51 uIU/mL (0.27-4.20) H 12/10/21 21:42 Free T4 0.70 ng/dL (0.82-1.77) L 12/10/21 21:42 HCG, Qual Negative (Negative) 12/10/21 21:42 Urine Color Yellow (Yellow) 12/11/21 05:30 Urine Appearance Clear (CLEAR) 12/11/21 05:30 Urine pH 6 (5-7) 12/11/21 05:30 Ur Specific [place] 1.010 (1.005-1.030) 12/11/21 05:30 Urine Protein Neg (Negative) 12/11/21 05:30 Urine Glucose (UA) Norm (Normal) 12/11/21 05:30 Urine Ketones Negative (Negative) 12/11/21 05:30 Urine Blood Neg (Negative) 12/11/21 05:30 Urine Nitrate Negative (Negative) 12/11/21 05:30 Urine Bilirubin Neg (Negative) 12/11/21 05:30 Urine Urobilinogen Norm mg/dL (Negative) 12/11/21 05:30 Ur Leukocyte Esterase Negative (Negative) 12/11/21 05:30 Urine RBC 0-4 /hpf (0-2) H 12/10/21 21:48 Urine WBC 25-40 /hpf (0-5) H 12/10/21 21:48 Ur Squamous Epith Cells 0-4 /hpf (0-5) H 12/10/21 21:48 Amorphous Sediment Not Reportable 12/10/21 21:48 Urine Bacteria Trace /hpf (NONE) 12/10/21 21:48 Urine Mucus 1+ /hpf 12/10/21 21:48 Vancomycin Trough 16.1 ug/mL (10-15) H 12/12/21 01:15 Salicylates < 0.3 mg/dL (3-10) L 12/10/21 21:42 Urine Opiates Screen Negative ng/mL (Negative) 12/10/21 21:48 Acetaminophen < 5.0 ug/mL (10-30) L 12/10/21 21:42 Ur Barbiturates Screen Positive ng/mL (Negative) H 12/10/21 21:48 Ur Phencyclidine Scrn Negative ng/mL (Negative) 12/10/21 21:48 Ur Amphetamines Screen Negative ng/mL (Negative) 12/10/21 21:48 U Benzodiazepines Scrn Negative ng/mL (Negative) 12/10/21 21:48 Urine Cocaine Screen Negative ng/mL (Negative) 12/10/21 21:48 U Marijuana (THC) Screen Positive ng/mL (Negative) H 12/10/21 21:48 Ethyl Alcohol 50 mg/dL (0-10) H 12/10/21 21:42 Serum Ketones Negative (Negative) 12/10/21 21:42 Vitals Last Vital Signs Temp 98.1 F 12/13/21 04:00 Pulse 85 12/13/21 10:00 Resp 24 H 12/13/21 10:00 BP 150/102 12/13/21 10:00 Pulse Ox 94 12/13/21 10:00 O2 Del Method 12/13/21 10:00 O2 Flow Rate 3 12/12/21 22:00 FiO2 30 12/12/21 08:00 Discharge Plan Discharge Patient Disposition: Home Condition: Stable Prescriptions: New lisinopril 20 mg Tablet 40 mg PO DAILY Qty: 60 3RF chlorthalidone 25 mg Tablet 12.5 mg PO DAILY Qty: 90 2RF doxycycline monohydrate 100 mg Tablet 100 mg PO BID Qty: 20 0RF levothyroxine 75 mcg Tablet 75 mcg PO QAM Qty: 60 2RF metoprolol tartrate 50 mg Tablet 50 mg PO BID@0900,2100 Qty: 60 2RF folic acid 1 mg Tablet 1 mg PO DAILY Qty: 60 3RF Vitamin B-1 (mononitrate) 100 mg Tablet 100 mg PO DAILY Qty: 60 4RF Discontinued aspirin 325 mg Tablet 325 mg PO DAILY ibuprofen 800 mg tablet 800 mg PO TID PRN (Reason: Pain) Fishbiotic See Rx Instructions .ROUTE .COMPLEX Rx Instructions: takes as needed (per pts mother unsure what kind and how many times pt takes a day) Discharge Orders: Discharge Order (Routine); Ordered 12/13/21 Ordered By: Jeffrey Pham Other Ambulatory Orders: Thyroid Stimulating Hormone (Routine) Timeframe: 3 Weeks Facility: [facility] - Location: Lab - Main Lab Ordered By: Jeffrey Pham Referrals: Angie Velarde APN [Primary Care Provider] - 4-7 days [facility], [Staff Physician] - 4-7 days Discharge Diet: Low Salt Discharge Activity: Increase activity as tolerated Patient Instructions: Opioid Safety Discharge Attestations Time Spent in Discharge Care*: less than 30 min Quality Metrics Clinical Quality Measures [ No reported AMI, CVA or VTE this stay] Coding Level of Care Code Acute g FW DC note Diagnoses Hypertensive emergency I16.1 Venous ulcer I83.009; L97.909 Lactic acidosis E87.2 Bipolar disorder F31.9 Medication overdose T50.901A Alcohol intoxication F10.929 Respiratory acidosis E87.2 Ventilator dependence Z99.11 Respiratory failure J96.90 AMS (altered mental status) R41.82 Cellulitis L03.90
--- NOTE | 2021-12-13 16:31 | PC.NURSE ---
This nurse notified physician of trending BP, see vitals as documented. Physician plans to discharge home today. This nurse notified patient and patient's mother.
== END 2021-12-13 17:47 | disposition home or self-care (01) | DRG 917 ==
LOC: ER 22:45 → ICU 12-11 05:55
PROVIDERS: Admitting Provider Internal Medicine; Emergency Provider Emergency Medicine; PCP Nurse Practitioner Family; Visit Provider Internal Medicine
DX: T42.3X1A Poisoning by barbiturates, accidental (unintentional), initial encounter (principal); G93.41 Metabolic encephalopathy; J96.02 Acute respiratory failure with hypercapnia; L03.116 Cellulitis of left lower limb; Z68.41 Body mass index [BMI] 40.0-44.9, adult; E87.4 Mixed disorder of acid-base balance; I16.1 Hypertensive emergency; N39.0 Urinary tract infection, site not specified; T40.711A Poisoning by cannabis, accidental (unintentional), initial encounter; F12.10 Cannabis abuse, uncomplicated; F10.129 Alcohol abuse with intoxication, unspecified; Y90.9 Presence of alcohol in blood, level not specified; T42.6X1A Poisoning by other antiepileptic and sedative-hypnotic drugs, accidental (unintentional), initial encounter; F31.9 Bipolar disorder, unspecified; F17.210 Nicotine dependence, cigarettes, uncomplicated; E66.9 Obesity, unspecified; I87.8 Other specified disorders of veins; E03.9 Hypothyroidism, unspecified
CPT/HCPCS: 36415; 36416; 36600; 51702; 70450; 71045; 73701; 80048; 80053; 80202; 80306; 80307; 81001; 81003; 82009; 82140; 82550; 82803; 82962; 83605; 83690; 83735; 83880; 84145; 84439; 84443; 84484; 84703; 85025; 85378; 85651; 86140; 87040; 87070; 87077; 87086; 87186; 87205; 87641; 93005; 93925; 93970; 94002; 94003; 94640; 94799; 96365; 96366; 96367; 96372; 96375; 99291; C9113; J0360; J0692; J1644; J2250; J2270; J2543; J2704; J3010; J3370; J3490; J7030; J7050; J7626; Q9967

== ENCOUNTER → 2021-12-17 09:57 | Outpatient (BNVA) | payer MEDICAID, SELFPAY | PROVIDERS: PCP Nurse Practitioner Family; Visit Provider Thoracic Surgery (Cardiothoracic Vascular Surgery) | DX: I96 Gangrene, not elsewhere classified (principal); L89.892 Pressure ulcer of other site, stage 2 | CPT/HCPCS: 11042; 99213; A6252 ==

== ENCOUNTER → 2021-12-20 13:46 | Outpatient (BNVA) | payer MEDICAID, SELFPAY | PROVIDERS: PCP Nurse Practitioner Family; Visit Provider Nurse Practitioner Family | DX: Z51.89 Encounter for other specified aftercare (principal); L97.829 Non-pressure chronic ulcer of other part of left lower leg with unspecified severity | CPT/HCPCS: 29581; A6252 ==

== ENCOUNTER → 2021-12-24 10:38 | Outpatient (BNVA) | payer MEDICAID, SELFPAY | PROVIDERS: PCP Nurse Practitioner Family; Visit Provider Thoracic Surgery (Cardiothoracic Vascular Surgery) | DX: I96 Gangrene, not elsewhere classified (principal); L89.892 Pressure ulcer of other site, stage 2 | CPT/HCPCS: 97597; A6252 ==

== ENCOUNTER → 2021-12-31 10:14 | Outpatient (BNVA) | payer MEDICAID, SELFPAY | PROVIDERS: PCP Nurse Practitioner Family; Visit Provider Thoracic Surgery (Cardiothoracic Vascular Surgery) | DX: I96 Gangrene, not elsewhere classified (principal); L89.892 Pressure ulcer of other site, stage 2 | CPT/HCPCS: 97597 ==

== ENCOUNTER 2022-01-05 01:30 | Inpatient (IN) | payer MEDICAID, SELFPAY ==
[2022-01-05] VITALS (30 sets, daily range): BP systolic 76–143; BP diastolic 51–82; PULSE 77–103; RESP 14–24; TEMP 36.3–36.8; O2SAT 92–99; BMI 40.1
--- NOTE | 2022-01-05 01:44 | XRR_ITS ---
PROCEDURE INFORMATION: Exam: XR Chest Exam date and time: 01/05/2022 1:56 AM Age: 41 years old Clinical indication: On breathing; Patient HX: C/O dyspnea with painful inspiration. TECHNIQUE: Imaging protocol: Radiologic exam of the chest. Views: 1 view. COMPARISON: CR (CHEST, ) 12/10/2021 10:34 PM FINDINGS: Lungs: There are small lung volumes with minimal accentuation of the pulmonary vascularity. There are no confluent interstitial or airspace opacities. Pleural spaces: There are no pleural effusions or pneumothorax. Heart/Mediastinum: The heart size is normal. The mediastinal contour is normal. The trachea is in the midline. Bones/joints: No acute abnormalities. Soft tissues: Multiple external densities are seen overlying the chest, limiting assessment. XR/XR chest 1V portable [id number] IMPRESSION: Small lung volumes with minimal accentuation of the pulmonary vascularity. No confluent infiltrates in the lungs.
--- NOTE | 2022-01-05 01:54 | ECG_ITS ---
[facility] Test Date: 2022-01-05 Pat Name: Patricia Qureshi Department: Room: Gender: Female Psychological Assistant: : 1980 Requested By: Nikunj Camejo Order Number: [id number] Huma MD: Edgar Grace M.D. Measurements Intervals [place] Rate: 100 P: 59 NH: 129 QRS: 69 QRSD: 86 T: 78 QT: 351 QTc: 453 Interpretive Statements SINUS TACHYCARDIA ABNORMAL RHYTHM ECG Compared to ECG 12/13/2021 02:51:05 Sinus rhythm no longer present Electronically Signed On 01-05-2022 9:25:15 CDT by Edgar Grace M.D. [email or web address]
--- NOTE | 2022-01-05 01:54 | W.ED.SOB ---
HPI - SOB/Dyspnea General: Chief Complaint: Shortness of Breath/Dyspnea Stated Complaint: sharp upper back pain, hurts to breath Time Seen by Provider: 01/05/22 01:44 History of Present Illness: HPI Narrative: 41-year-old female comes in today for complaints of left-sided chest pain with movement. Patient also reports some mild shortness of breath. Patient states that she is unable to take a deep breath because it hurts every time she tries. Patient denies any falls or injury. Patient appears nontoxic. Patient appears in moderate pain. Associated symptoms: Deny chest pain Review of Systems Card: Denies: chest pain Resp: Reports: dyspnea Musc: Reports: other (Left rib pain) [facility] PFSH: Medical History (Updated 01/05/22 @ 02:07 by ROZINA Pulliam) Alcohol intoxication AMS (altered mental status) Bipolar 1 disorder Bipolar disorder Blood clot in vein Cellulitis Depression Hypertensive emergency Lactic acidosis Medication overdose Migraine Respiratory acidosis Respiratory failure Saphenofemoral venous reflux Venous ulcer Ventilator dependence Family History Other CAD (coronary artery disease) Cancer Diabetes Social History Smoking and tobacco status: current every day smoker cigarettes Packs smoked per day: 1 Years cigarettes smoked: 20 Alcohol intake: current Alcohol intake frequency: few times a week Alcohol type: beer Lives independently: Yes Household members: children Housing: House Marital status: Single Number of children: 1 Pets and animals: No History of recent travel: No Female Reproductive History: Date of last menstrual period: 05/28/20 Physical Exam Const: COMMON NORMALS: alert HENMT: COMMON NORMALS: normocephalic HEAD & SCALP: normocephalic Neck/C-Spine: COMMON NORMALS: full ROM Chest: CHEST: Yes tenderness (Left anterior ribs and sternal costal junction) rib Resp: COMMON NORMALS: clear to auscultation bilaterally AUSCULTATION: clear to auscultation bilaterally Cardio: COMMON NORMALS: regular rate and regular rhythm RATE: regular rate RHYTHM: regular rhythm Extremity: COMMON NORMALS: no pedal edema NARRATIVE EXTREMITY EXAM: No edema, chromatosis from chronic peripheral vascular disease Neuro: SENSORIUM/ORIENTATION: Yes alert Course Vital Signs: Vital signs: Vital Signs Temperature 97.7 F 08/27/22 01:38 Pulse Rate 100 01/05/22 01:38 Respiratory Rate 24 H 01/05/22 01:38 Blood Pressure 92/65 01/05/22 01:38 Pulse Oximetry 98 01/05/22 01:38 Oxygen Delivery Me thod 01/05/22 01:38 MDM - SOB/Dyspnea Medical Decision Making 41-year-old female comes in today with some complaints of left chest wall pain and discomfort. Patient reports difficulty lying in bed due to the left chest wall pain. Patient's had difficulty for the last 2 to 3 days. Patient denies any fever or nausea or vomiting. Skin is warm and dry. Respiratory effort is normal. Patient does have pain with deep inspiration. Lungs are clear to auscultation. Palpation of chest wall notes some tenderness to the left anterior chest wall. Which is reproducible with movement and palpation. No crepitus or subcu emphysema is noted. Differential diagnosis includes but not limited to pneumonia, costochondritis, rib fracture. X-rays noted no fracture or pneumothorax. No pneumonia is also noted. Reviewed exam with patient recommended treatment for costochondritis. Patient was given steroids and a dose of Toradol IV. Patient was continued on oral steroids and Celebrex. EKG Data EKG 1: EKG Interpretation Date: 01/05/22 EKG interpretation time: 01:55 Prior EKG tracings: not available for review Interpretation: EKG shows a sinus rhythm with a regular rate at [address] elevation or ectopy is noted. No prior exam was available for comparison. Discharge Plan Discharge Patient Disposition: Home Clinical Impression: Acute costochondritis Hypotension Qualifiers: Hypotension type: hypotension due to drug Qualified Code(s): I95.2 - Hypotension due to drugs Condition: Stable Prescriptions: New Celebrex 200 mg capsule 200 mg PO BID Qty: 14 0RF dexamethasone 4 mg tablet 4 mg PO DAILY Qty: 5 0RF No Action lisinopril 20 mg Tablet 40 mg PO DAILY Qty: 60 3RF chlorthalidone 25 mg Tablet 12.5 mg PO DAILY Qty: 90 2RF doxycycline monohydrate 100 mg Tablet 100 mg PO BID Qty: 20 0RF levothyroxine 75 mcg Tablet 75 mcg PO QAM Qty: 60 2RF metoprolol tartrate 50 mg Tablet 50 mg PO BID@0900,2100 Qty: 60 2RF folic acid 1 mg Tablet 1 mg PO DAILY Qty: 60 3RF Vitamin B-1 (mononitrate) 100 mg Tablet 100 mg PO DAILY Qty: 60 4RF Discharge Orders: Discharge ED (Routine); Ordered 01/05/22 Ordered By: Nikunj Brady Referrals: Angie Velarde APN [Primary Care Provider] - Discharge Diet: Usual diet Discharge Activity: Increase activity as tolerated Patient Instructions: Costochondritis (ED) Activity Restrictions/Additional Instructions: Decrease lisinopril to 20 mg 1 tablet daily. Continue with other medications as directed. Take Celebrex 200 mg 1 tablet twice a day for pain and inflammation. Use acetaminophen for further pain relief. Do not use ibuprofen or naproxen with Celebrex. Drink plenty of water with medications. Follow-up with primary care in 3 days. Return to the ER for high fever greater than 100.4, increasing shortness of breath, or new concerns. Coding Level of Care Code ED Spinal Surgeon for Marjorie Lopez
[2022-01-05] MEDS: ketorolac 30 mg/mL INJ 15 MG IVP (02:56)
[2022-01-05] MEDS: dexamethasone 10 mg/mL INJ IVP (02:56)
--- NOTE | 2022-01-05 02:59 | CTR_ITS ---
PROCEDURE INFORMATION: Exam: CTA Chest With Contrast Exam date and time: 01/05/2022 3:44 AM Age: 41 years old Clinical indication: On breathing; Patient HX: C/O dyspnea with painful inspiration and upper back pain. ; Additional info: Dyspnea chest pain TECHNIQUE: Imaging protocol: Computed tomographic angiography of the chest with contrast. 3D rendering (Not supervised by radiologist): MIP and/or 3D reconstructed images were created by the technologist. Radiation optimization: All CT scans at this facility use at least one of these dose optimization techniques: automated exposure control; mA and/or kV adjustment per patient size (includes targeted exams where dose is matched to clinical indication); or iterative reconstruction. Contrast material: OMNI 350; Contrast volume: 69 ml; Contrast route: INTRAVENOUS (IV); COMPARISON: CR (CHEST, ) 01/05/2022 1:56 AM RADIATION DOSE METRICS: Total DLP (mGy-cm): 456.39 FINDINGS: Pulmonary arteries: Moderate right upper lobe, moderate right lower lobe, mild right middle lobe, minimal left upper lobe and moderate left lower lobe segmental and subsegmental pulmonary emboli are seen. The central pulmonary artery appears normal. Aorta: No thoracic aortic aneurysm. No thoracic aortic dissection. Trachea: The central airway is normal. Lungs: There are mildly decreased lung volumes. Small region of irregular left lower lobe lateral basilar segment ground-glass opacity is seen, which may represent evolving pulmonary infarct. There are no other lung ground-glass opacities. There are no regions of consolidation or interstitial lung disease. Pleural spaces: No pneumothorax. No pleural effusion. Heart: The heart size is within normal limits. The RV/LV ratio is normal (no CT evidence of RV strain). There is no pericardial effusion. No coronary arterial atherosclerotic vascular calcifications. Lymph nodes: No enlarged lymph nodes. Bones/joints: No acute osseous abnormalities. Soft tissues: Unremarkable. Other findings: Elevated right hemidiaphragm is seen, which may be related to an eventration. There is mild fatty infiltration of the liver. CT/CT angio chest PE protcl [id number] IMPRESSION: 1. Moderate right upper lobe, moderate right lower lobe, mild right middle lobe, minimal left upper lobe and moderate left lower lobe segmental and subsegmental pulmonary emboli. No CT evidence of right ventricular strain. 2. Small region of irregular left lower lobe lateral basilar segment ground-glass opacity seen, which may represent evolving pulmonary infarct.
[2022-01-05] MEDS: ondansetron 4 MG Tablet PO (03:09)
--- NOTE | 2022-01-05 03:19 | PC.NURSE ---
Provider to RN stating he is going to take off the dc status since pt is not improved. Will do blood work and CT. Updated pt.
[2022-01-05 03:23] LABS: Basophils # 0.1 10^3/uL (0.0-0.1); Basophils % 0.7 %; Eosinophils # 0.4 10^3/uL (0.0-0.8); Eosinophils % 2.2 %; Hemoglobin 15.9 g/dL (11.5-15.3); Lymphocytes # 2.8 10^3/uL (0.8-4.8); Lymphocytes % 15.6 %; Mean Corpuscular HGB Conc 32.4 g/dL (30.0-36.0); Mean Corpuscular Hemoglobin 30.8 pg (28.0-34.0); Mean Corpuscular Volume 94.8 fl (81-99); Mean Platelet Volume 9.3 fL (7.4-10.4); Monocytes % 5.8 %; Neutrophils # 13.39 10^3/uL (1.8-7.7); Neutrophils % 75.1 %; Nucleated Red Blood Cells % 0 %; Platelet Count 454 10^3/cmm (130-400); Red Blood Count 5.17 10^6/uL (4.1-5.3); White Blood Count 17.8 10^3/uL (4.0-10.0)
[2022-01-05 03:38] LABS: Troponin(5th) Baseline 11 ng/L (0-10)
[2022-01-05 03:41] LABS: Alanine Aminotransferase 14 U/L (0-33); Albumin Level 4.2 g/dL (3.5-5.2); Alkaline Phosphatase 98 U/L (35-105); Anion Gap 19.9 (5-19); Aspartate Amino Transferase 12 U/L (0-32); Blood Urea Nitrogen 27 mg/dL (6-20); Calcium 9.7 mg/dL (8.5-10.5); Carbon Dioxide 24 mmol/L (22-29); Chloride 97 mmol/L (98-107); Globulin 3.3 g/dL (1.3-4.6); Glomerular Filtration Rate 33.1 mL/min (90-130); Glucose 155 mg/dL (65-115); Osmolality Calculated 290 mOsm/kg (285-295); Potassium 4.9 mmol/L (3.5-5.1); Sodium 136 mmol/L (136-145); Total Bilirubin 0.5 mg/dL (0.15-1.2); Total Protein 7.5 g/dL (6.6-8.7)
[2022-01-05] MEDS: iohexol 350 mg/mL 100 mL Btl IV (03:52)
--- NOTE | 2022-01-05 04:45 | PM.HP ---
Providers/Chief Complaint Primary Care Provider: Angie Velarde APN Chief Complaint: sharp upper back pain, hurts to breath History of Present Illness Patricia Qureshi is a 41 year old female with a past history of bilateral pulmonary emboli, history of left lower extremity DVT, not on anticoagulation due to affordability in the past, and lack of insurance, recent hospitalization for left leg cellulitis, metabolic encephalopathy, successfully extubated, alcohol abuse, substance abuse, respiratory failure who presents [facility] due to chest pain shortness of breath. Patient tells me that since getting in the hospital she continues to have substernal chest pain, pleuritic pain, pleurisy, shortness of breath with exertion, she has been less mobile since her hospitalization. She does not describe any fevers, but does have a nonproductive cough, does report smoking, does report using marijuana, denies any other drug use. Review of Systems Card: Reports: chest pain Resp: Reports: dyspnea Medications/Allergies Home Medications Medication Instructions Recorded Confirmed Last Taken Type chlorthalidone 25 mg tablet 12.5 mg PO DAILY #90 tabs 12/13/21 Unknown Rx doxycycline monohydrate 100 mg 100 mg PO BID #20 tabs 12/13/21 Unknown Rx tablet folic acid 1 mg tablet 1 mg PO DAILY #60 tabs 12/13/21 Unknown Rx levothyroxine 75 mcg tablet 75 mcg PO QAM #60 tabs 12/13/21 Unknown Rx lisinopril 20 mg tablet 40 mg PO DAILY #60 tabs 12/13/21 Unknown Rx metoprolol tartrate 50 mg tablet 50 mg PO BID@0900,2100 #60 tabs 12/13/21 Unknown Rx thiamine mononitrate (vit B1) 100 100 mg PO DAILY #60 tabs 12/13/21 Unknown Rx mg tablet (Vitamin B-1 (mononitrate)) celecoxib 200 mg capsule (Celebrex) 200 mg PO BID #14 caps 01/05/22 Unknown Rx dexamethasone 4 mg tablet 4 mg PO DAILY #5 tabs 01/05/22 Unknown Rx Allergies Allergy/AdvReac Type Severity Reaction Status Date / Time No Known Allergies Allergy Verified 09/07/21 09:06 PFSH Acute PFSH: Medical History Alcohol intoxication AMS (altered mental status) Bipolar 1 disorder Bipolar disorder Blood clot in vein Cellulitis Depression Hypertensive emergency Lactic acidosis Medication overdose Migraine Respiratory acidosis Respiratory failure Saphenofemoral venous reflux Venous ulcer Ventilator dependence Family History Other CAD (coronary artery disease) Cancer Diabetes Social History Smoking and tobacco status: current every day smoker cigarettes Packs smoked per day: 1 Years cigarettes smoked: 20 Alcohol intake: current Alcohol intake frequency: few times a week Alcohol type: beer Lives independently: Yes Household members: children Housing: House Marital status: Single Number of children: 1 Pets and animals: No History of recent travel: No Female Reproductive History: Date of last menstrual period: 05/28/20 Vitals/I&O/Wt Last Vital Signs Temp 97.7 F 01/05/22 01:38 Pulse 101 H 01/05/22 04:25 Resp 18 01/05/22 04:25 BP 98/75 01/05/22 04:25 Pulse Ox 94 01/05/22 04:25 O2 Del Method 01/05/22 04:25 Weight last 48 hrs Weight 119.839 kg Physical Exam Const: COMMON NORMALS: no acute distress and patient oriented x3 HENMT: COMMON NORMALS: normocephalic HEAD & SCALP: normocephalic Neck/C-Spine: COMMON NORMALS: no JVD Resp: COMMON NORMALS: normal respiratory effort, No retractions, No use of accessory muscles and clear to auscultation bilaterally AUSCULTATION: clear to auscultation bilaterally Cardio: COMMON NORMALS: no JVD, regular rate, regular rhythm, S1 normal heart sound present and S2 normal heart sound present RATE: regular rate RHYTHM: regular rhythm HEART SOUNDS: S1 normal heart sound present and S2 normal heart sound present GI: COMMON NORMALS: Normal to inspection, nondistended, normoactive bowel sounds present, Soft to palpation, non-tender, No hepatosplenomegaly present, no masses and no bruits PALPATION: Yes Soft to palpation and Yes No hepatosplenomegaly present Extremity: COMMON NORMALS: no pedal edema NARRATIVE EXTREMITY EXAM: Left leg noble, erythema, swelling, slight tenderness Neuro: COMMON NORMALS: patient oriented x3 Psych: COMMON NORMALS: mental status grossly normal Data : 01/05/22 03:16 01/05/22 03:16 A&P Assessment and plan (1) Chest pain: Status: Acute Qualifiers: Chest pain type: unspecified Qualified Code(s): R07.9 - Chest pain, unspecified (2) Bilateral pulmonary embolism: Status: Acute (3) Leukocytosis: Status: Acute (4) Cellulitis: Status: Acute (5) Pneumonia: Status: Acute Plan Bilateral extensive pulmonary emboli -This is her second episode of pulmonary emboli -Her prior episode of pulmonary emboli was back in 2014, bilateral, extensive -She will need to follow-up with hematology oncology as outpatient for hypercoagulability work-up -We will need indefinite anticoagulation -Therapeutic Lovenox, switch to Eliquis on discharge -Cardiac echo -Serial EKGs, serial troponins, telemetry monitoring -Full code -Lovenox for DVT prophylaxis Leukocytosis -Etiology uncertain -CT of the chest does show glass opacities left lower lobe, complaints of shortness of breath, cough -She does have area of cellulitis of the left noble however they looked healed over -Nonetheless we will start her on broad-spectrum antibiotic therapy vancomycin, cefepime Hypothyroidism, continue home medications Hypotension, blood pressures are soft, hold blood pressure medications check lactic acid KAVIN, creatinine 1.7, has received contrast IV fluids Attestations Medical Necessity Statement*: Patient requires hospitalization, inpatient, greater than 2 midnights, for bilateral pulmonary emboli Coding Level of Care Code Acute Instrument And Controls Technician for [facility] Diagnoses Chest pain R07.9 Chest pain type: unspecified Bilateral pulmonary embolism I26.99 Leukocytosis D72.829 Cellulitis L03.90 Pneumonia J18.9
--- NOTE | 2022-01-05 04:52 | ECG_ITS ---
[facility] Test Date: 2022-01-05 Pat Name: Patricia Qureshi Department: Room: [facility]03 Gender: Female Stem Lead Former: : 1980 Requested By: Nikunj Camejo Order Number: [id number] Huma MD: Edgar Grace M.D. Measurements Intervals [place] Rate: 95 P: 34 SC: 130 QRS: 23 QRSD: 85 T: 35 QT: 350 QTc: 441 Interpretive Statements SINUS RHYTHM Compared to ECG 01/05/2022 01:52:51 Sinus tachycardia no longer present Electronically Signed On 01-05-2022 9:30:01 CDT by Edgar Grace M.D. [email or web address] central regional medical centerNAVITIME JAPANohiohealth hardin memorial hospital.[employer]/store/OM/[id number]
[2022-01-05] MEDS: enoxaparin 120 mg/0.8 mL Syringe 110 MG SUBCUT (04:59)
[2022-01-05 05:07] LABS: Procalcitonin 0.12 ng/mL (0-0.5); Thyroid Stimulating Hormone 0.72 uIU/mL (0.27-4.20)
[2022-01-05 05:18] LABS: C Reactive Protein 126.3 mg/L (0.0-4.9); Creatine Phosphokinase 25 U/L (26-192)
[2022-01-05 05:25] LABS: Arterial Blood Gas Hematocrit 47.1 % (37-47); Base Excess ABG -2.3 mmol/L (-2.0-2.0); Blood Gas Allen Test Pos; Blood Gas Sample Site Radial, right; Blood Gas Sample Type Arterial; Oxygen Device ROOM AIR; PO2 ABG 71.9 mmHg (80.0-100.0)
[2022-01-05 05:31] LABS: Lactate (Lactic Acid level) 1.2 mmol/L (0.5-2.2)
--- NOTE | 2022-01-05 05:59 | USCV_ITS ---
Patricia Qureshi Age: 41 Gender: F : 1980 Exam Date: 01/05/2022 07:36 Ordering Phys: Ambrosio Prater MD Technologist: JOSE ANGEL [place] [facility] [place]ication: PE BP: 96 / 59 HR: 85 Rhythm: Sinus Technical Quality: Suboptimal MEASUREMENTS (Male / Female) Normal Values 2D ECHO LV Diastolic Diameter PLAX 4.4 cm 4.2 - 5.9 / 3.9 - 5.3 cm LV Systolic Diameter PLAX 2.4 cm IVS Diastolic Thickness 1.4 cm 0.6 - 1.0 / 0.6 - 0.9 cm IVS Systolic Thickness 2.0 cm LVPW Diastolic Thickness 1.3 cm 0.6 - 1.0 / 0.6 - 0.9 cm LVPW Systolic Thickness 2.4 cm LVOT Diameter 2.0 cm LV Ejection Fraction 2D Teich 77.9 % LV Ejection Fraction MOD 2C 66.5 % LV Ejection Fraction 2C AL 69.0 % LA Diameter 3.3 cm LA Width 2.5 cm LA Height 4.7 cm RA Width 2.9 cm RA Height 3.9 cm Aorta at Sinotubular Diameter 2.3 cm M-MODE Aortic Annulus Diameter 3.2 cm LA Ao Ratio MM 1.1 MV E Point Septal Separation 0.3 cm DOPPLER AV Peak Velocity 125.0 cm/s LVOT Peak Velocity 107.0 cm/s AV Area Cont Eq vti 3.0 cm squared AV Area Cont Eq pk 2.7 cm squared MV Peak Velocity 109.0 cm/s MV Area PHT 3.7 cm squared Mitral E to A Ratio 1.4 MV E' Velocity 49.5 cm/s Mitral E to MV E' Ratio 8.0 Mitral E to LV E' Lateral Ratio 7.8 Mitral E to LV E' Septal Ratio 8.3 TR Peak Velocity 151.0 cm/s TR Peak Gradient 9.1 mmHg TR Mean Velocity 128.4 cm/s TR Mean Gradient 6.6 mmHg TR Velocity Time Integral 38.0 cm TV Peak E Velocity 57.0 cm/s Right Atrial Pressure 8.0 mmHg Pulmonary Artery Systolic Pressu 17.1 mmHg PV Peak Velocity 155.0 cm/s RV Acceleration Time 0.1 s RV Ejection Time 0.4 s RV AcT/ET 0.2 FINDINGS Left Ventricle Normal left ventricular size, systolic function and wall thickness, with no regional wall motion abnormalities. Normal left ventricular wall thickness. Normal diastolic filling pattern. Left ventricular ejection fraction is estimated at 60 %. Right Ventricle The right ventricle is normal in size and function. Normal right ventricular systolic pressure. Right Atrium The right atrium is normal in size. Left Atrium The left atrium is normal in size. Mitral Valve Structurally normal mitral valve without significant stenosis or prolapse. There is no mitral regurgitation. Aortic Valve Structurally normal aortic valve without significant sclerosis or stenosis. There is no aortic regurgitation. Tricuspid Valve Structurally normal tricuspid valve without significant stenosis or regurgitation. Pulmonary artery systolic pressure is normal. Pulmonic Valve Structurally normal pulmonic valve without significant stenosis. There is no pulmonic regurgitation. Pericardium Normal pericardium without effusion. Aorta Normal ascending aorta dimension. IVC The inferior vena cava pulmonary and hepatic veins appear normal. CONCLUSIONS Normal transthoracic echocardiogram. Dr. Edgar Grace MD (Electronically Signed) Final Date: 05 January 2022 09:12 S
[2022-01-05] MEDS: levothyroxine 75 mcg Tablet PO (06:15)
[2022-01-05] MEDS: sodium chloride 0.9% 1,000 ML 75 ML IV (06:15)
[2022-01-05] MEDS: pantoprazole 40 mg SDV IVP (06:22)
[2022-01-05 06:36] LABS: Free T4 Free Thyroxine 1.31 ng/dL (0.82-1.77); T3 Free 2.8 PG/ML (2.0-4.4)
--- NOTE | 2022-01-05 06:38 | ECG_ITS ---
[facility] Test Date: 2022-01-05 Pat Name: Patricia Qureshi Department: Room: [facility]03 Gender: Female Roll Reclaimer: : 1980 Requested By: Nikunj Camejo Order Number: [id number] Huma MD: Edgar Grace M.D. Measurements Intervals [place] Rate: 90 P: 42 WV: 142 QRS: 43 QRSD: 89 T: 44 QT: 373 QTc: 458 Interpretive Statements SINUS RHYTHM Compared to ECG 01/05/2022 04:52:45 No significant changes Electronically Signed On 01-05-2022 9:25:18 CDT by Edgar Grace M.D. [email or web address].Metranomememorial hospital at stone countyOptima Diagnosticsmercy health clermont hospital.[employer]/store/OM/[id number]
[2022-01-05 06:48] LABS: Erythrocyte Sedimentation Rate 42 mm/hr (0-15)
--- NOTE | 2022-01-05 07:24 | PC.NURSE ---
0605- Admitted to ICU room 3 from ER. Reports being short of breath and having left sided chest pain. V/S stable. Room Air. Complete admit completed.
[2022-01-05] MEDS: vancomycin 1,250 MG/250 ML PIGGYBACK 200 MG IV (08:13)
[2022-01-05 12:54] LABS: Glucose Urine UA Norm (Normal); Ketones Urine 1+ (Negative); Protein Urine Trace (Negative); Urine Appearance Clear (CLEAR); Urine Color Yellow (Yellow); pH Urine 5 (5-7)
[2022-01-05 12:55] LABS: Add Urine Microscopic? YES; Bilirubin Urine Neg (Negative); Blood Urine Neg (Negative); Leukocyte Esterase Urine Negative (Negative); Nitrate Urine Negative (Negative); Urobilinogen Urine 1 mg/dL (Negative)
[2022-01-05 12:57] LABS: Add Urine Culture? No; Bacteria Urine 2+ /hpf; Mucus Urine 1+ /hpf; Squamous Epithelial Cell Urine 15-25 /hpf (0-5); WBC Urine 0-4 /hpf (0-5)
--- NOTE | 2022-01-05 13:32 | PM.MISC ---
Miscellaneous Note Note: Overnight labs and H&P reviewed. No acute interim events. Patient states her breathing is easier than last night. She has some cough but not bringing up any expectoration. Lower extremity changes are that of stasis dermatitis. She follows with wound care. She has been afebrile. Check COVID antigen. test negative. Discontinue IV antibiotics as no current evidence of infection. It is possible that her leukocytosis may be a result of 2 doses of Decadron 10 mg each that she got last night.
[2022-01-05 17:25] LABS: SARS Covid-2 Antigen Negative (Negative)
[2022-01-05] MEDS: hyDROXYzine 25 mg Capsule PO (17:29)
[2022-01-05] MEDS: enoxaparin 120 mg/0.8 mL Syringe SUBCUT (17:29)
--- NOTE | 2022-01-05 21:17 | PC.NURSE ---
Patient transfered from ICU03 to [facility] 251-1 via wheelchair accompanied by staff and belongings at 2117.
[2022-01-05] MEDS: metoprolol tartrate 50 mg Tablet PO (21:44)
[2022-01-05] MEDS: acetaminophen 325 mg Tablet 650 MG PO (21:46)
[2022-01-06] VITALS (7 sets, daily range): BP systolic 100–107; BP diastolic 65–71; PULSE 68–83; RESP 16–18; TEMP 36.6–37; O2SAT 96–97
[2022-01-06 04:27] LABS: Basophils % 0.2 %; Eosinophils # 0.1 10^3/uL (0.0-0.8); Eosinophils % 0.3 %; Hematocrit 42.8 % (37.0-47.0); Hemoglobin 13.8 g/dL (11.5-15.3); Lymphocytes # 2.4 10^3/uL (0.8-4.8); Lymphocytes % 13.9 %; Mean Corpuscular HGB Conc 32.2 g/dL (30.0-36.0); Mean Corpuscular Hemoglobin 30.9 pg (28.0-34.0); Mean Platelet Volume 9.5 fL (7.4-10.4); Monocytes # 1.2 10^3/uL (0.2-0.9); Monocytes % 6.7 %; Neutrophils # 13.48 10^3/uL (1.8-7.7); Neutrophils % 78.1 %; Nucleated Red Blood Cells % 0 %; Platelet Count 385 10^3/cmm (130-400); Red Blood Count 4.46 10^6/uL (4.1-5.3); Red Cell Distribution Width 11.9 % (12.1-15.1); White Blood Count 17.3 10^3/uL (4.0-10.0)
[2022-01-06 04:48] LABS: Alanine Aminotransferase 12 U/L (0-33); Albumin Level 3.3 g/dL (3.5-5.2); Alkaline Phosphatase 81 U/L (35-105); Anion Gap 15.5 (5-19); Aspartate Amino Transferase 11 U/L (0-32); Blood Urea Nitrogen 25 mg/dL (6-20); Calcium 9.4 mg/dL (8.5-10.5); Carbon Dioxide 21 mmol/L (22-29); Chloride 103 mmol/L (98-107); Globulin 3.4 g/dL (1.3-4.6); Glomerular Filtration Rate 61.1 mL/min (90-130); Glucose 163 mg/dL (65-115); Osmolality Calculated 288 mOsm/kg (285-295); Phosphorus 3.5 mg/dL (2.5-4.5); Potassium 4.5 mmol/L (3.5-5.1); Sodium 135 mmol/L (136-145); Total Bilirubin 0.2 mg/dL (0.15-1.2); Total Protein 6.7 g/dL (6.6-8.7)
[2022-01-06] MEDS: enoxaparin 120 mg/0.8 mL Syringe SUBCUT (06:42)
[2022-01-06] MEDS: levothyroxine 75 mcg Tablet PO (06:42)
[2022-01-06] MEDS: pantoprazole DR 40 mg Tablet PO (08:28)
[2022-01-06] MEDS: thiamine 100 mg Tablet PO (08:28)
[2022-01-06] MEDS: metoprolol tartrate 50 mg Tablet PO (08:28)
[2022-01-06] MEDS: hyDROXYzine 25 mg Capsule PO (08:28)
--- NOTE | 2022-01-06 14:08 | PC.NURSE ---
reviewed discharge instructions with patient, pt verbalizes understanding, all questions answered and reviewed. Patient in stable condition.
--- NOTE | 2022-01-06 15:48 | PM.DCS ---
Discharge Providers Date of Admission: 01/05/22 04:40 Date of Discharge: January 06, 2022 Attending Provider at Admission: Ambrosio Prater MD Attending Provider at Discharge: Jade Leo MD Primary Care Provider: Angie Velarde APN Diagnoses at Discharge Discharge Diagnosis (1) Chest pain: Status: Acute Qualifiers: Chest pain type: unspecified Qualified Code(s): R07.9 - Chest pain, unspecified (2) Bilateral pulmonary embolism: Status: Acute (3) Leukocytosis: Status: Acute (4) Cellulitis: Status: Acute (5) Pneumonia: Status: Acute Reason for Visit Reason for Visit: sharp upper back pain, hurts to breath Brief History: Taken from H&P: Patricia Qureshi is a 41 year old female with a past history of bilateral pulmonary emboli, history of left lower extremity DVT, not on anticoagulation due to affordability in the past, and lack of insurance, recent hospitalization for left leg cellulitis, metabolic encephalopathy, successfully extubated, alcohol abuse, substance abuse, respiratory failure who presents [facility] due to chest pain shortness of breath.? Patient tells me that since getting in the hospital she continues to have substernal chest pain, pleuritic pain, pleurisy, shortness of breath with exertion, she has been less mobile since her hospitalization.?? Hospital Course Hospital Course On CT of her chest she was found to have bilateral extensive pulmonary emboli. She was treated with Lovenox 1 mg/kg every 12 hours while in the hospital which is being transitioned to Eliquis 10 mg twice daily for 7 days followed by 5 mg twice daily at the time of discharge. Patient remained on room air throughout her course of hospitalization. Echocardiogram was performed which did not show any evidence of right heart strain. Her chest pain was much improved by the time of discharge. Since this is her second episode of pulmonary emboli it is recommended she follow-up with hematology as an outpatient for hypercoagulability work-up. She will likely need indefinite anticoagulation. Lower extremity Doppler was negative for DVT currently. She had a recent hospital admission for left lower extremity cellulitis. There are no cellulitic changes noted today on exam. She does have stasis dermatitis from a history of old DVT in the same leg which has left her with venous insufficiency and recurrent venous ulcers. She follows with wound care currently for the same. She was on doxycycline as outpatient which has been resumed at the time of discharge since she had noted clinical improvement. She does have leukocytosis at 17,000, however no gross signs of untreated infection. I suspect this may be related to 2 doses of IV Decadron 10 mg each that she received in the ER upon admission. Recommended to repeat CBC in 3 days with her primary care provider to ensure that it is downtrending. She feels well today and is eager to return home. Patient remained normotensive during the course of her admission here off of her chlorthalidone and lisinopril. These are being held at the time of discharge. Please follow-up with primary care provider in 1 to 3 days to reassess. Physical Exam Narrative: General: No acute distress, AO x3 HEENT: PERRLA, pupils bilaterally equal and reactive, pallors not present Chest: Normal vesicular breath sounds, no added sounds, equal good air entry bilaterally CVS: S1-S2 regular, no murmurs, no tachycardia, no gallops, no rubs Abdomen: Soft, nontender, no organomegaly, bowel sounds present Neuro: No focal deficits, no facial deformity, AO x3, power 5/5 in all limbs Extremities: No edema clubbing or cyanosis Discharge Data Studies Completed and Pending Completed Studies During Hospitalization Category Date Time Status CT PE [CT angio chest PE protcl [id number]] Stat Cat Scan 01/05/22 02:59 Completed XR chest 1V portable [id number] Stat Exams 01/05/22 01:44 Completed CV. echo complete* [id number] Routine Ultrasound 01/05/22 05:59 Completed Pending at discharge Category Date Time Status Blood Culture Stat Lab 01/05/22 05:47 Results Sputum Culture Stat Lab 01/05/22 05:03 Results Radiology Impressions Chest X-Ray 01/05/22 01:44 IMPRESSION: Small lung volumes with minimal accentuation of the pulmonary vascularity. No confluent infiltrates in the lungs. Chest CTA 01/05/22 02:59 IMPRESSION: 1. Moderate right upper lobe, moderate right lower lobe, mild right middle lobe, minimal left upper lobe and moderate left lower lobe segmental and subsegmental pulmonary emboli. No CT evidence of right ventricular strain. 2. Small region of irregular left lower lobe lateral basilar segment ground-glass opacity seen, which may represent evolving pulmonary infarct. ADDENDUM: 01/05/22 0415 THIS REPORT CONTAINS FINDINGS THAT MAY BE CRITICAL TO PATIENT CARE. The findings were verbally communicated via telephone conference at 4:13 AM CDT on 01/05/[address] Roberts. The findings were acknowledged and understood. Ordering Provider/Ordering MD: Ambrosio Prater MD Date of Service: 01/05/22 Procedure(s): CV. echo complete* [id number] Accession Number(s): [id number] Report Number: [id number] ?Patricia Qureshi ?Age:? ? 41 ? ? Gender: ? ? F ?:? ? 1980 ?Exam Date: ? ? 01/05/2022 07:36 ?Ordering Phys: ? ? Ambrosio Prater? ?Technologist:? ? ? KB ?Exam Location:? ? ? [facility] ?MRN:? ? [id number] ?Account Number: ? ? ? [id number] ?Indication:? ? ? PE ?BP: ? 96? ? ? / ? 59? ? ? HR: ? 85 ?Rhythm: ? Sinus ?Technical Quality:? ? ? Suboptimal ?MEASUREMENTS? (Male / Female) Normal Values ?2D ECHO ?LV Diastolic Diameter PLAX? 4.4 cm? 4.2 - 5.9 / 3.9 - 5.3 cm ?LV Systolic Diameter PLAX ? 2.4 cm?IVS Diastolic Thickness ? 1.4 cm? 0.6 - 1.0 / 0.6 - 0.9 cm ?IVS Systolic Thickness? 2.0 cm?LVPW Diastolic Thickness? 1.3 cm? 0.6 - 1.0 / 0.6 - 0.9 cm ?LVPW Systolic Thickness ? 2.4 cm?LVOT Diameter ? 2.0 cm?LV Ejection Fraction 2D Teich ? ? 77.9 %?LV Ejection Fraction MOD 2C ? ? ? 66.5 %?LV Ejection Fraction 2C AL? 69.0 %?LA Diameter ? 3.3 cm?LA Width? 2.5 cm?LA Height ? 4.7 cm?RA Width? 2.9 cm?RA Height ? 3.9 cm?Aorta at Sinotubular Diameter ? ? 2.3 cm?M-MODE ?Aortic Annulus Diameter ? 3.2 cm?LA Ao Ratio MM? 1.1 ?MV E Point Septal Separation? ? ? 0.3 cm?DOPPLER ?AV Peak Velocity? 125.0 cm/s?LVOT Peak Velocity? 107.0 cm/s?AV Area Cont Eq vti ? 3.0 cm squared ?AV Area Cont Eq pk? 2.7 cm squared ?MV Peak Velocity? 109.0 cm/s?MV Area PHT ? 3.7 cm squared ?Mitral E to A Ratio ? 1.4 ?MV E' Velocity? 49.5 cm/s ?Mitral E to MV E' Ratio ? 8.0 ?Mitral E to LV E' Lateral Ratio ? 7.8 ?Mitral E to LV E' Septal Ratio? ? 8.3 ?TR Peak Velocity? 151.0 cm/s?TR Peak Gradient? 9.1 mmHg?TR Mean Velocity? 128.4 cm/s?TR Mean Gradient? 6.6 mmHg?TR Velocity Time Integral ? 38.0 cm ?TV Peak E Velocity? 57.0 cm/s ?Right Atrial Pressure ? 8.0 mmHg?Pulmonary Artery Systolic Pressu? 17.1 mmHg ?PV Peak Velocity? 155.0 cm/s?RV Acceleration Time? 0.1 s ?RV Ejection Time? 0.4 s ?RV AcT/ET ? 0.2 ?FINDINGS ?Left Ventricle ?Normal left ventricular size, systolic function and wall ?thickness, with no regional wall motion abnormalities.? Normal ?left ventricular wall thickness. Normal diastolic filling ?pattern.? Left ventricular ejection fraction is estimated at 60 ?%. ?Right Ventricle ?The right ventricle is normal in size and function.? Normal ?right ventricular systolic pressure. ?Right Atrium ?The right atrium is normal in size. ?Left Atrium ?The left atrium is normal in size. ?Mitral Valve ?Structurally normal mitral valve without significant stenosis or ?prolapse.? There is no mitral regurgitation. ?Aortic Valve ?Structurally normal aortic valve without significant sclerosis ?or stenosis.? There is no aortic regurgitation. ?Tricuspid Valve ?Structurally normal tricuspid valve without significant stenosis ?or regurgitation.? Pulmonary artery systolic pressure is normal. ?Pulmonic Valve ?Structurally normal pulmonic valve without significant stenosis.? ?There is no pulmonic regurgitation. ?Pericardium ?Normal pericardium without effusion. ?Aorta ?Normal ascending aorta dimension. ?IVC ?The inferior vena cava pulmonary and hepatic veins appear ?normal. ?CONCLUSIONS ?Normal transthoracic echocardiogram. Laboratory Results WBC 17.3 10^3/uL (4.0-10.0) H 01/06/22 03:56 RBC 4.46 10^6/uL (4.1-5.3) 01/06/22 03:56 Hgb 13.8 g/dL (11.5-15.3) 01/06/22 03:56 Hct 42.8 % (37.0-47.0) 01/06/22 03:56 MCV 96.0 fl (81-99) 01/06/22 03:56 MCH 30.9 pg (28.0-34.0) 01/06/22 03:56 MCHC 32.2 g/dL (30.0-36.0) 01/06/22 03:56 RDW 11.9 % (12.1-15.1) L 01/06/22 03:56 Plt Count 385 10^3/cmm (130-400) 01/06/22 03:56 MPV 9.5 fL (7.4-10.4) 01/06/22 03:56 Neut % (Auto) 78.1 % 01/06/22 03:56 Lymph % (Auto) 13.9 % 01/06/22 03:56 Mitchell % (Auto) 6.7 % 01/06/22 03:56 Eos % (Auto) 0.3 % 01/06/22 03:56 Baso % (Auto) 0.2 % 01/06/22 03:56 Neut # (Auto) 13.48 10^3/uL (1.8-7.7) H 01/06/22 03:56 Lymph # (Auto) 2.4 10^3/uL (0.8-4.8) 01/06/22 03:56 Mitchell # (Auto) 1.2 10^3/uL (0.2-0.9) H 01/06/22 03:56 Eos # (Auto) 0.1 10^3/uL (0.0-0.8) 01/06/22 03:56 Baso # (Auto) 0.0 10^3/uL (0.0-0.1) 01/06/22 03:56 Nucleated RBC % (auto) 0 % 01/06/22 03:56 Nucleated RBCs # 0.0 /100WBC 01/06/22 03:56 ESR 42 mm/hr (0-15) H 01/05/22 03:16 Specimen Type Arterial 01/05/22 05:20 Sample Site Radial, right 01/05/22 05:20 ABG pH 7.40 (7.35-7.45) 01/05/22 05:20 ABG pCO2 36.0 mmHg (35-45) 01/05/22 05:20 ABG pO2 71.9 mmHg (80.0-100.0) L 01/05/22 05:20 ABG HCO3 22.0 mmol/L (22-26) 01/05/22 05:20 ABG Base Excess -2.3 mmol/L (-2.0-2.0) L 01/05/22 05:20 Eliel Test Pos 01/05/22 05:20 Hematocrit 47.1 % (37-47) H 01/05/22 05:20 O2 Delivery Device Room air 01/05/22 05:20 Parts Counterman ID Sarahja 01/05/22 05:20 Sodium 135 mmol/L (136-145) L 01/06/22 03:56 Potassium 4.5 mmol/L (3.5-5.1) 01/06/22 03:56 Chloride 103 mmol/L (98-107) 01/06/22 03:56 Carbon Dioxide 21 mmol/L (22-29) L 01/06/22 03:56 Anion Gap 15.5 (5-19) 01/06/22 03:56 BUN 25 mg/dL (6-20) H 01/06/22 03:56 Creatinine 1.0 mg/dL (0.5-0.9) H 01/06/22 03:56 GFR Calculation 61.1 mL/min (90-130) L 01/06/22 03:56 Glucose 163 mg/dL (65-115) H 01/06/22 03:56 Calculated Osmolality 288 mOsm/kg (285-295) 01/06/22 03:56 Lactate 1.2 mmol/L (0.5-2.2) 01/05/22 04:52 Calcium 9.4 mg/dL (8.5-10.5) 01/06/22 03:56 Phosphorus 3.5 mg/dL (2.5-4.5) 01/06/22 03:56 Magnesium 2.0 mg/dL (1.7-2.3) 01/06/22 03:56 Total Bilirubin 0.2 mg/dL (0.15-1.2) 01/06/22 03:56 AST 11 U/L (0-32) 01/06/22 03:56 ALT 12 U/L (0-33) 01/06/22 03:56 Alkaline Phosphatase 81 U/L (35-105) 01/06/22 03:56 Creatine Kinase 25 U/L (26-192) L 01/05/22 04:29 Troponin T Baseline 11 ng/L (0-10) H 01/05/22 03:16 Troponin T 120 Minute 14.20 ng/L (0-10) H 01/05/22 04:29 Delta Troponin T 3.20 ABS# (0-10) 01/05/22 04:29 C-Reactive Protein 126.3 mg/L (0.0-4.9) H 01/05/22 04:29 Total Protein 6.7 g/dL (6.6-8.7) 01/06/22 03:56 Albumin 3.3 g/dL (3.5-5.2) L 01/06/22 03:56 Globulin 3.4 g/dL (1.3-4.6) 01/06/22 03:56 Procalcitonin 0.12 ng/mL (0-0.5) 01/05/22 04:29 TSH 0.72 uIU/mL (0.27-4.20) 01/05/22 04:29 Free T4 1.31 ng/dL (0.82-1.77) 01/05/22 04:29 Free T3 2.8 PG/ML (2.0-4.4) 01/05/22 04:29 Ser , Semi-Qnt 0.50 mIU/mL 01/05/22 03:16 Random Cortisol 18.30 ug/dL (2.47-19.5) 01/05/22 04:29 Urine Color Yellow (Yellow) 01/05/22 12:22 Urine Appearance Clear (CLEAR) 01/05/22 12:22 Urine pH 5 (5-7) 01/05/22 12:22 Ur Specific [place] 1.010 (1.005-1.030) 01/05/22 12:22 Urine Protein Trace (Negative) 01/05/22 12:22 Urine Glucose (UA) Norm (Normal) 01/05/22 12:22 Urine Ketones 1+ (Negative) H 01/05/22 12:22 Urine Blood Neg (Negative) 01/05/22 12:22 Urine Nitrate Negative (Negative) 01/05/22 12:22 Urine Bilirubin Neg (Negative) 01/05/22 12:22 Urine Urobilinogen 1 mg/dL (Negative) H 01/05/22 12:22 Ur Leukocyte Esterase Negative (Negative) 01/05/22 12:22 Urine RBC None /hpf (0-2) 01/05/22 12:22 Urine WBC 0-4 /hpf (0-5) H 01/05/22 12:22 Ur Squamous Epith Cells 15-25 /hpf (0-5) H 01/05/22 12:22 Amorphous Sediment Not Reportable 01/05/22 12:22 Urine Bacteria 2+ /hpf (NONE) H 01/05/22 12:22 Urine Mucus 1+ /hpf 01/05/22 12:22 SARS-CoV-2 Ag (Rapid) Negative (Negative) 01/05/22 14:15 Vitals Last Vital Signs Temp 97.9 F 01/06/22 13:35 Pulse 82 01/06/22 13:35 Resp 18 01/06/22 13:35 BP 104/65 01/06/22 13:35 Pulse Ox 97 01/06/22 13:35 O2 Del Method 01/06/22 11:09 O2 Flow Rate 0 01/05/22 19:52 Discharge Plan Discharge Patient Disposition: Home Condition: Stable Prescriptions: New pantoprazole 40 mg Tablet,Delayed Release (Dr/Ec) 40 mg PO DAILY 30 Days Qty: 30 0RF Eliquis DVT-PE Treat 30D Start 5 mg (74 tabs) tablets,dose pack See Rx Instructions .ROUTE .COMPLEX Qty: 74 0RF Rx Instructions: orally per package directions Continued doxycycline monohydrate 100 mg Tablet 100 mg PO BID Qty: 20 0RF levothyroxine 75 mcg Tablet 75 mcg PO QAM Qty: 60 2RF metoprolol tartrate 50 mg Tablet 50 mg PO BID@0900,2100 Qty: 60 2RF folic acid 1 mg Tablet 1 mg PO DAILY Qty: 60 3RF thiamine mononitrate (vit B1) [Vitamin B-1 (mononitrate)] 100 mg Tablet 100 mg PO DAILY Qty: 60 4RF ProAir HFA 90 mcg/actuation Hfa Aerosol Inhaler 2 puff INHALATION QID PRN (Reason: shortness of breath) hydroxyzine HCl 25 mg Tablet 25 mg PO BID oxycodone-acetaminophen 7.5-325 mg Tablet 1 tab PO Q4H PRN (Reason: pain) Held lisinopril 20 mg Tablet 20 mg PO DAILY Hold Instructions: Resume on 01/09/22. hold until follow up with PCP Discontinued chlorthalidone 25 mg Tablet 12.5 mg PO DAILY Qty: 90 2RF Discharge Orders: Discharge Order (Routine); Ordered 01/06/22 Ordered By: Jade Leo Other Ambulatory Orders: Complete Blood Count w/Auto (Routine) Timeframe: 2 Days Location: Determined by Patient Ordered By: Jade Leo Referrals: Angie Velarde APN [Primary Care Provider] - 1-3 days Cheyenne Young MD [Staff Physician] - 1 month (recurrent PE in 41 yr old patient ? hypercoagulable state ) Discharge Diet: Usual diet Discharge Activity: Increase activity as tolerated Patient Instructions: Pantoprazole (By mouth), Apixaban (By mouth), Pulmonary Embolism (DC), Cellulitis (GEN), Deep Vein Thrombosis (GEN), Opioid Safety Activity Restrictions/Additional Instructions: Holding lisinopril and chlorthalidone due to borderline BP in the hospital. Continue with other medications as directed. Follow-up with primary care in 3 days. Return to the ER for high fever greater than 100.4, increasing shortness of breath, or new concerns. Discharge Attestations Time Spent in Discharge Care*: greater than 30 min Quality Metrics Clinical Quality Measures [ Venous Thromboembolism { Contraindication to Overlap Therapy: None; Overlap threrpy ordered; VTE Discharge Education: Education about anticoagulant therapy/Care Notes given; Deep Vein Thrombosis/Pulmonary Embolism Present on Admission: Yes;}] Coding Level of Care Code Acute Chg FW DC note Diagnoses Chest pain R07.9 Chest pain type: unspecified Bilateral pulmonary embolism I26.99 Leukocytosis D72.829 Cellulitis L03.90 Pneumonia J18.9
== END 2022-01-06 14:59 | disposition home or self-care (01) | DRG 176 ==
LOC: ER 04:41 → ICU 04:50 → MEDSURG 21:31
PROVIDERS: Nurse Practitioner Family; Admitting Provider Family Medicine; Emergency Provider Emergency Medicine; PCP Nurse Practitioner Family; Visit Provider Student in an Organized Health Care Education/Training Program
DX: I26.99 Other pulmonary embolism without acute cor pulmonale (principal); N17.9 Acute kidney failure, unspecified; Z86.711 Personal history of pulmonary embolism; Z79.01 Long term (current) use of anticoagulants; I87.2 Venous insufficiency (chronic) (peripheral); Z86.718 Personal history of other venous thrombosis and embolism; D72.829 Elevated white blood cell count, unspecified; F17.210 Nicotine dependence, cigarettes, uncomplicated; I95.9 Hypotension, unspecified; E03.9 Hypothyroidism, unspecified
CPT/HCPCS: 36415; 36600; 71045; 71275; 80053; 81001; 82533; 82550; 82803; 83605; 83735; 84100; 84145; 84439; 84443; 84481; 84484; 84702; 85025; 85651; 86140; 87040; 87070; 87426; 93005; 93306; 96372; 96374; 96375; 99285; C9113; J0692; J1100; J1650; J1885; J2270; J3370; J7030; Q0162; Q9967

== ENCOUNTER → 2022-01-07 10:04 | Outpatient (BNVA) | payer MEDICAID, SELFPAY | PROVIDERS: PCP Nurse Practitioner Family; Visit Provider Thoracic Surgery (Cardiothoracic Vascular Surgery) | DX: I96 Gangrene, not elsewhere classified (principal); L89.892 Pressure ulcer of other site, stage 2 | CPT/HCPCS: 97597 ==

== ENCOUNTER 2022-07-23 09:02 | Outpatient (CLI) | payer MEDICAID, SELFPAY ==
--- NOTE | 2022-07-23 09:16 | XR_ITS ---
WS: [id number] XR chest 2V* [id number] REASON FOR EXAM: BRONCHITIS FINDINGS: Normal thoracic aorta. Normal heart size. Calcified granulomatous disease in both hemithoraces. Mild elevation of the right hemidiaphragm. No active pulmonary parenchymal or pleural disease. Chest appears stable compared to 01/05/2022. XR/XR chest 2V* [id number] IMPRESSION: Stable chest without acute abnormality.
== END 2022-07-23 09:03 | disposition home or self-care (01) ==
PROVIDERS: PCP Nurse Practitioner Family; Visit Provider Nurse Practitioner Family
DX: J40 Bronchitis, not specified as acute or chronic (principal)
CPT/HCPCS: 71046

== ENCOUNTER 2022-10-17 10:35 | Outpatient (CLI) | payer MEDICAID, SELFPAY ==
--- NOTE | 2022-10-17 | USCV_ITS ---
Patricia Qureshi Age: 41 Gender: F : 1980 Exam Date: 10/17/2022 11:51 Ordering Phys: Dulce Tomas NP Technologist: JOSE ANGEL Exam Location: [facility] [place] Indication: LLE PAIN AND SWELLING HISTORY: Lower extremity swelling. Lower extremity pain. History of deep venous thrombosis. PROCEDURES: Venous duplex imaging was performed in only the left lower extremity. The following venous structures were evaluated: common femoral vein, profunda vein, proximal portion of the greater saphenous vein, superficial femoral vein, and the popliteal vein. In addition, the posterior tibial and peroneal trunk were evaluated. Serial compression, augmentation maneuvers, and spectral Doppler flow evaluation were performed. FINDINGS: No evidence of DVT seen in any vessel visualized at this time. Examination was technically limited due to body habitus. CONCLUSIONS No evidence of left lower extremity DVT. Naresh Hurd MD (Electronically Signed) Final Date: 17 October 2022 16:10 S
== END 2022-10-17 10:36 | disposition home or self-care (01) ==
LOC: RAD 10:38
PROVIDERS: PCP Nurse Practitioner Family; Visit Provider Nurse Practitioner Family
DX: M79.605 Pain in left leg (principal); M79.89 Other specified soft tissue disorders
CPT/HCPCS: 76882; 93971

== ENCOUNTER 2024-10-27 10:16 | Outpatient (CLI) | payer MEDICAID, SELFPAY ==
--- NOTE | 2024-10-27 10:20 | MM_ITS ---
WS: [id number] BILATERAL SCREENING DIGITAL TOMOSYNTHESIS MAMMOGRAM WITH CAD HISTORY: SCREENING COMPARISON: None available. Bilateral CC and MLO views with tomosynthesis and synthetic mammography submitted. Computer aided detection analyzed. Breast composition: The breasts are almost entirely fatty. No suspicious masses, microcalcifications or architectural distortion. Benign coarse round calcifications medial RIGHT breast. MM/MM scr BI tomosynthesis [id number] IMPRESSION: BI-RADS: 2 - Benign. FOLLOW UP: 1 Year Follow-up
== END 2024-10-27 10:17 | disposition home or self-care (01) ==
LOC: MOBLMAM 10:19
PROVIDERS: PCP Nurse Practitioner Family; Visit Provider Nurse Practitioner Family
DX: Z12.31 Encounter for screening mammogram for malignant neoplasm of breast (principal)
CPT/HCPCS: 77063; 77067